=== PATIENT | female | born 1950 | race Caucasian/White ===

== ENCOUNTER 2017-07-24 19:46 | Emergency (ER) | payer MEDICARE, MEDICAID, SELFPAY ==
[2017-07-24 19:47] VITALS: BP 122/72; PULSE 63; RESP 15; TEMP 36.7; BMI 29.2
[2017-07-24] MEDS: predniSONE 20 MG Tablet 40 MG PO (20:25)
[2017-07-24] MEDS: Morphine 4 MG/ML Syringe IM (20:25)
[2017-07-24] MEDS: Acyclovir 800 MG Tablet PO (20:34)
[2017-07-24] MEDS: Ketoconazole Cream 1 APPLIC TOPICAL (20:35)
--- NOTE | 2017-07-24 20:43 | ED.DCSUM_ITS ---
- ER Visit Summary Date of Service: 07/24/17 Chief Complaint: Rash History of Present Illness: The patient is a 66 F the painful rash to the back of her right calf for the past 1 week. Patient states it feels like shingles that she has had previously, but someone told her today it may be ringworm. She does state that itches as well. She denies rash anywhere else. She has been putting psoriasis cream on it without improvement. Physical Examination: Vital signs are unremarkable. Patient is in no acute distress and nontoxic appearing. Heart is regular rate and rhythm. Lung sounds are clear. Abdomen is soft nontender. Right lower extremity examination was a 4 cm round area of erythema over the posterior right calf. There is no flaking in the area is minimally raised. There are no open vesicles at this time. There is no drainage. Test Results: [] Emergency Department Course and Treatment: I discussed with the patient that my concern is for shingles especially with the degree of pain she is having to the area. She states this does feel like her prior shingles, however it is odd that she has no other lesions along the nerve distribution. Patient will be treated with prednisone, acyclovir for shingles. She will also be given ketoconazole cream to place topically as she is concerned about ringworm. She is given a single dose of IM morphine here for pain control. She will continue Tylenol or ibuprofen at home for pain. Treatment Plan: [] Disposition: Discharge Impression: Rash right leg concerning for shingles This note was generated with [employer] dictation software. It may contain incorrect words, spelling, and punctuation that were not noted in review of the chart prior to signing ED Disposition - Plan for ED Patient: Disposition: Home or Assisted Living Chief Complaint: Rash Instructions: ED Shingles Prescriptions: Acyclovir 800 mg PO 5X/DAY #25 tablet Prednisone [Deltasone] 60 mg PO DAILY #15 tablet Ketoconazole [Nizoral Cream] 1 applic TOPICAL BID #1 tube Referrals: Luigi Parrish DO [Primary Care Provider] - 1-2 Weeks
[2017-07-24 20:51] VITALS: BP 132/78; PULSE 78; RESP 18; O2SAT 98
== END 2017-07-24 20:53 | disposition home or self-care (01) ==
PROVIDERS: Emergency Provider Emergency Medicine; Family Provider Student in an Organized Health Care Education/Training Program; PCP Student in an Organized Health Care Education/Training Program
DX: R21 Rash and other nonspecific skin eruption (principal); I11.0 Hypertensive heart disease with heart failure; I15.9 Secondary hypertension, unspecified; E11.9 Type 2 diabetes mellitus without complications; E03.9 Hypothyroidism, unspecified; F32.9 Major depressive disorder, single episode, unspecified; F41.9 Anxiety disorder, unspecified; M79.7 Fibromyalgia; Z79.899 Other long term (current) drug therapy; Z72.0 Tobacco use
CPT/HCPCS: 96372; 99284

== ENCOUNTER 2017-09-13 14:31 | Emergency (ER) | payer MEDICARE, MEDICAID, SELFPAY ==
[2017-09-13 14:32] VITALS: BP 128/65; PULSE 59; RESP 14; TEMP 36.7; O2SAT 89; BMI 29.9
[2017-09-13 15:31] LABS: Absolute Lymphocyte Count 1.65 X10^3/ul (0.83-4.51); Absolute Neutrophil Count 5.7 X10^3/uL (2.0-7.7); Basophil# 0.04 X10^3/uL; Basophil% 0.5 % (0-1); Eosinophil# 0.16 X10^3/uL; Hematocrit 40.9 % (37-47); Hemoglobin 13.2 g/dl (12.0-15.0); Lymphocyte # 1.65 X10^3/ul (4.0); Lymphocyte % 20.5 % (19-41); Mean Corp Hgb Conc 32.3 g/gl (32-36); Mean Corpuscular Hgb 30.5 pg (27.0-32.0); Mean Corpuscular Volume 94.5 fL (81-99); Mean Platelet Vol. 9.2 fl (6.2-12.0); Monocyte# 0.47 X10^3/uL; Monocyte% 5.8 % (0-10); Neutrophil # 5.67 X10^3/uL (2.7-7.7); Neutrophil % 70.6 % (47-70); Platelet Count 239 K/mm3 (150-450); RBC Distribution Width CV 13.9 % (11.6-14.6); Red Blood Count 4.33 M/mm3 (4.2-5.4)
[2017-09-13 15:36] LABS: Allen Test POS; Base Excess 3 mmol/L (-2 to +2); Bicarbonate 26.4 mmol/L (22-26); Blood Gas Specimen Type ART; O2 Delivery Device Room Air; PO2 52 mmHG (75-100); SITE R Radial; SO2 89 % (95-99); Time Given 1525; Total Carbon Dioxide 27 mmol/L; pCO2 35.4 mmHg (35-45); pH 7.48 (7.35-7.45)
[2017-09-13 15:41] LABS: Anion Gap 6 (5-15); BUN 11 mg/dL (7-18); Calcium,Total 9.5 mg/dL (8.5-10.1); Chloride 105 mmol/L (98-107); Creatinine, Serum 0.92 mg/dL (0.55-1.02); EST Glomerular Filtration Rate 65 mL/min (>60); Est Glom Filt Rate - Afr Amer 78 mL/min (>60); Estimated Creatinine Clearance 49.09 ml/min; Glucose 86 mg/dL (74-106); Potassium 3.6 mmol/L (3.5-5.1); Sodium Level 138 mmol/L (136-145)
[2017-09-13 15:42] LABS: POSITIVE COUNT NO; POSITIVE DIFFERENTIAL NO; POSITIVE MORPHOLOGY NO
[2017-09-13 16:12] LABS: Amphetamine Urine VISTA NEGATIVE (<1000 ng/mL); Barbiturate Urine VISTA NEGATIVE (< 200 ng/mL); Benzodiazepine Urine VISTA NEGATIVE (< 200 ng/mL); Cocaine Urine VISTA NEGATIVE (< 300 ng/mL); Ecstacy Urine VISTA NEGATIVE (< 500 ng/mL); Methadone Urine VISTA NEGATIVE (< 300 ng/mL); PCP Urine VISTA NEGATIVE (< 25 ng/mL); THC Urine VISTA NEGATIVE (< 50 ng/mL); Vista UDS pH Range 6
[2017-09-13] MEDS: HYDROmorphone 0.5 MG/0.5 ML SYRINGE IV (16:43)
--- NOTE | 2017-09-13 16:53 | ED.VISSUMM ---
- ER Visit Summary Date of Service: 09/13/17 Chief Complaint: Exacerbation of chronic back pain right greater than left History of Present Illness: The patient is a 66 F who is not a good informant. Her thought process is not linear/logical. He states she had a surgical procedure by Dr. Benson on Thursday. There is no scar. Asked if she received an epidural injection and she replied no I had a surgical procedure. She states he did not prescribe any pain medicine and she has not been on pain medicine for some time. She denies any bowel or bladder dysfunction. She denies saddle paresthesia anesthesia. She denies radicular pain. She denies weakness or thigh muscles going up and down steps. She denies foot drop. Denies symptoms of claudication. She denies any radicular pain. She denies dysuria, frequency, urgency or hematuria. Patient's only positive response and review of system questions was back pain. Patient informed me 1 hour after arrival that she is on oxygen at home. She informed me this when I told her that her blood gas was significantly abnormal. . Physical Examination: Vital signs are unremarkable. Patient's speech is slightly slurred. Concern she may have CO2 retention versus use of pain medicine. Head is atraumatic normocephalic. Pupils are equal round reactive. Extraocular muscles are intact. TMs are pearly white with landmarks noted. Nares patent with no drainage. Posterior pharynx without erythema or exudate. Uvula is midline. There is no dysphonia or dysphasia. Trachea is midline. There is no stridor with auscultation of the neck. Heart is regular without murmur, gallop or rub. S1 and S2 are normal. Lungs are clear to auscultation with good movement of air bilaterally. Abdomen is soft nontender no palpable semester down bruit. She has reproducible low back pain bilaterally. Movement causes her pain. Straight leg test and crossover tests are negative. Patella and ankle reflex are 1+ and symmetric. EHL is intact. DP and PT pulses are palpable. There is no clonus or Babinski sign noted. She has normal sensation in her lower extremities and gluteal area. Test Results: CBC unremarkable BMP normal blood gas reveals increased AA gradient with a person who has smoked since age of 12 and has smoked between 2-3 packs per day. Tox screen was negative Emergency Department Course and Treatment: Concern patient may be under the influence of illicit medication and reason for tox screen. Blood gas was obtained because of concern for CO2 retention. CBC to evaluate for evidence of infection electro panel to assess BUN creatinine and electrolytes. Patient informed me that she is seen by Dr. Benson for pain management. When asked specifically why she did not receive a prescription for pain medicine she had no response. Treatment Plan: Since tox screen is negative she was treated with 0.5 mg of Dilaudid. I was informed by her nurse Jocelyn that she is requesting STD analgesia until September 23. Patient was informed that she would not receive a prescription for any pain medicine because she is in pain management and that would violate her contract. Disposition: Discharged home with daughter Impression: Exacerbation of chronic low back pain without sciatica/radiculopathy Hypoxia secondary to chronic lung disease History of hypertension History hypothyroidism This note was generated with [employer] dictation software. It may contain incorrect words, spelling, and punctuation that were not noted in review of the chart prior to signing ED Disposition - Plan for ED Patient: Disposition: Home or Assisted Living Chief Complaint: Back Instructions: ED Neck Back Pain General Referrals: Luigi Parrish DO [Primary Care Provider] - Mele Jacome MD [STAFF PHYSICIAN] - 3-5 Days if not improving
[2017-09-13 17:13] VITALS: PULSE 66; RESP 18; O2SAT 89
== END 2017-09-13 17:14 | disposition home or self-care (01) ==
PROVIDERS: Emergency Provider Emergency Medicine; Family Provider Student in an Organized Health Care Education/Training Program; PCP Student in an Organized Health Care Education/Training Program
DX: M54.5 Low back pain (principal); G89.29 Other chronic pain; J44.9 Chronic obstructive pulmonary disease, unspecified; R09.02 Hypoxemia; I10 Essential (primary) hypertension; E03.9 Hypothyroidism, unspecified; E66.9 Obesity, unspecified; F17.200 Nicotine dependence, unspecified, uncomplicated; Z68.29 Body mass index [BMI] 29.0-29.9, adult; Z79.899 Other long term (current) drug therapy; Z99.81 Dependence on supplemental oxygen
CPT/HCPCS: 36600; 80048; 80307; 82803; 85025; 96374; 99284; A4216

== ENCOUNTER 2017-11-15 16:49 | Observation (INO) | payer MEDICARE, MEDICAID, SELFPAY ==
[2017-11-15 16:50] VITALS: BP 128/52; PULSE 67; RESP 18; TEMP 36.8; O2SAT 89; BMI 30.2
[2017-11-15] MEDS: HYDROcodone Bitartrate/Apap 5/325 Tablet PO (19:12)
[2017-11-15 19:18] LABS: Absolute Lymphocyte Count 2.96 X10^3/ul (0.83-4.51); Absolute Neutrophil Count 7.7 X10^3/uL (2.0-7.7); Basophil# 0.06 X10^3/uL; Basophil% 0.5 % (0-1); Eosinophil# 0.27 X10^3/uL; Eosinophils% 2.3 % (0-5); Hematocrit 37.5 % (37-47); Hemoglobin 12.4 g/dl (12.0-15.0); Lymphocyte # 2.96 X10^3/ul (4.0); Lymphocyte % 25.1 % (19-41); Mean Corp Hgb Conc 33.1 g/gl (32-36); Mean Corpuscular Hgb 30.7 pg (27.0-32.0); Mean Corpuscular Volume 92.8 fL (81-99); Mean Platelet Vol. 9.4 fl (6.2-12.0); Monocyte% 6.8 % (0-10); Neutrophil # 7.66 X10^3/uL (2.7-7.7); Platelet Count 214 K/mm3 (150-450); RBC Distribution Width CV 13.4 % (11.6-14.6); RBC Distribution Width SD 45.1 fl (35.1-43.9); Red Blood Count 4.04 M/mm3 (4.2-5.4); White Blood Count 11.8 K/mm3 (4.4-11.0)
[2017-11-15 19:28] LABS: POSITIVE COUNT NO; POSITIVE DIFFERENTIAL NO; POSITIVE MORPHOLOGY NO
[2017-11-15 19:41] LABS: Anion Gap 8 (5-15); BUN 25 mg/dL (7-18); BUN/Creat Ratio 15.1 RATIO (10-20); Calcium,Total 9.4 mg/dL (8.5-10.1); Chloride 99 mmol/L (98-107); Creatinine, Serum 1.66 mg/dL (0.55-1.02); EST Glomerular Filtration Rate 33 mL/min (>60); Est Glom Filt Rate - Afr Amer 40 mL/min (>60); Estimated Creatinine Clearance 26.01 ml/min; Glucose 103 mg/dL (74-106); Potassium 3.4 mmol/L (3.5-5.1); Sodium Level 137 mmol/L (136-145)
--- NOTE | 2017-11-15 20:51 | ED.VISSUMM ---
- ER Visit Summary Date of Service: 11/15/17 Chief Complaint: Right breast pain History of Present Illness: The patient is a 66 F who presents with right breast pain. It is been present for 2 days. She has noticed some irritation and pain of her nipple and red line streaking up her breast. She had nausea vomiting last week but this is since resolved. She has no other systemic symptoms. No fevers or chills. She is not diabetic. No history of prior similar symptoms. Physical Examination: Afebrile vitals are stable Moist mucous membranes Heart regular rate and rhythm Lymphangitic streaking of the right breast and some erythema of the nipple no discharge no mass no fluctuance Abdomen soft Test Results: Labs notable for white blood cell count 11.8 BUN 25 creatinine 1.66. Emergency Department Course and Treatment: Patient was treated with IV Unasyn and given [place] for pain. She was discussed with hospitalist will be admitted for further antibiotic therapy. Treatment Plan: [] Disposition: Admit Impression: Lymphangitis right breast This note was generated with [employer] dictation software. It may contain incorrect words, spelling, and punctuation that were not noted in review of the chart prior to signing ED Disposition - Plan for ED Patient: Chief Complaint: Other, Pain/Inj Referrals: Luigi Parrish DO [Primary Care Provider] -
[2017-11-15 21:32] VITALS: BP 130/70; PULSE 65; PULSE 80; RESP 14; O2SAT 98
[2017-11-15 21:46] VITALS: BMI 30.1
[2017-11-15 21:59] VITALS: BP 137/59; PULSE 58; RESP 18; TEMP 36.4; O2SAT 92
--- NOTE | 2017-11-15 22:38 | HP.PCM_ITS ---
Problem List (1) Edema Status: Chronic (2) Hypothyroid Status: Chronic (3) COPD (chronic obstructive pulmonary disease) Status: Chronic (4) HTN (hypertension) Status: Chronic (5) GERD (gastroesophageal reflux disease) Status: Chronic (6) Mastitis of right breast unrelated to of Status: Acute History of Present Illness Date of Admission: 11/15/17 Chief Complaint: Right breast pain The patient is a 66 year old F with a PMH as above, presents with a 2-3 day h/o right nipple pain and spreading redness. She denies any fevers, chills but has noticed that the redness and pain worsened today which is why she came to the hospital. She noticed the streaking on her breast this morning. She did not see her PCP. She denies any trauma to the breast and states that she has had a yearly mammogram, though she has not had one this year yet. She has a family h/ o breast cancer in her mother. She has not noticed any drainage coming from her nipple. In the ER she was given a dose of unasyn. Past Medical History Past Medical History (Chronic Problems): Chronic Problems Edema (Chronic) Hypothyroid (Chronic) COPD (chronic obstructive pulmonary disease) (Chronic) HTN (hypertension) (Chronic) GERD (gastroesophageal reflux disease) (Chronic) Allergies latex Allergy (Verified 11/15/17 16:51) Rash Sulfa (Sulfonamide Antibiotics) Allergy (Verified 11/15/17 16:51) Rash Phenothiazines Adverse Reaction (Verified 11/15/17 16:51) Other I LOST CONTROL OF MY MUSCLES AND NERVES procaine HCl [From Novocain] Adverse Reaction (Verified 11/15/17 16:51) Nausea/Vom/Diarrhea Home Medications: Ambulatory Orders Medication Instructions Recorded Fluoxetine HCl [Fluoxetine HCl] 40 mg PO DAILY 12/23/15 Furosemide [Furosemide] 40 mg PO DAILY 12/23/15 Gabapentin [Gabapentin] 900 mg PO TID 12/23/15 Ipratropium/Albuterol Sulfate 3 ml INHALATION Q6H.RT PRN 12/23/15 [Duoneb] Levothyroxine [Synthroid] 137 mcg PO DAILY 12/23/15 Omeprazole [Omeprazole] 20 mg PO DAILY 12/23/15 traZODone [Desyrel] 150 mg PO DAILY 12/23/15 Lisinopril [Lisinopril] 5 mg PO DAILY PRN 04/07/16 Hydroxychloroquine [Plaquenil] 200 mg PO DAILYCM 10/16/16 Ketoconazole [Nizoral Cream] 1 applic TOPICAL BID #1 tube 07/24/17 Surgical History: - - multiple cyst removal, back surgeries and a right shoulder surgery Smoking Status: Current every day smoker Alcohol: None Drugs: None - *Family History Maternal History Items: Cancer, Heart Disease Review of Systems Constitutional: Denies: Chills, Fever, Weight Change HEENT: Denies: Head Aches, Sinus Congestion, Sinus Drainage Cardiovascular: Denies: Chest Pain, Palpitations Respiratory: Denies: Cough, Shortness of breath at rest, Sputum production Gastrointestinal: Denies: Abdominal Pain, Nausea, Vomiting Genitourinary: Denies: Dysuria Gynecological: Reports: - - Right nipple pain, redness Musculoskeletal: Denies: Joint Pain, Joint Tenderness Skin: Reports: Rash. Denies: Wounds Neurological: Denies: Numbness, Tingling, Focal weakness Psychiatric: Denies: Anxiety, Depression Hematologic/ Lymphatic: Denies: Easy Bruising, Easy Bleeding VTE Information - Inpt Only VTE Present on Admission: No Patient Problems: Active and Suspected Problems Mastitis of right breast unrelated to of (Acute) - Physical Exam General: Alert, Oriented x3, Cooperative, No apparent distress HEENT: Atraumatic, PERRLA, EOMI, Normocephalic Oral: Moist Mucosa Neck: Supple, No JVD Lungs: Clear to auscultation, Normal air movement, No rhonchi, No wheeze, No rales Cardiovascular: Regular rate, Regular Rhythm, Normal S1, Normal S2, No murmurs Abdomen: Soft, Non Tender, Non-Distended, No Hepato-splenomegaly Extremities: No edema, Capillary Refill Less than 3 Seconds Skin: - - right nipple is red and swollen, there is an area of erythema immediatly around the nipple and there are three red streaks migrating away from her nipple Musculoskeletal: No Tenderness to Palpation of Joints or Extremities Neurological: Neuro grossly intact, Sensory exam intact to light touch and pain Psych/Mental Status: Normal Affect, Appropriate Vital Signs Temp Pulse Resp BP Pulse Ox 97.6 F L 58 L 18 137/59 H 92 11/15/17 21:59 11/15/17 21:59 11/15/17 21:59 11/15/17 21:59 11/15/17 21:59 Oxygen Delivery Method Room Air Weight: 167 lb 2.751 oz Body Mass Index (BMI) 30.0 Assessment/Plan All Active Problems Mastitis of right breast unrelated to of (Acute) 1. Right mastitis/LUCI/HTN - Likely infectious and will start with Unasyn - Her creatinine is elevated so will also give IVF and hold her lasix and lisinopril - Repeat BMP in am - Will try some oxycodone for her pain, if it doesnt help, can also try topical lidocaine to her nipple 2. Hypothyroidism - She has a f/u in - c/w synthroid 3. Chronic Back pain - She had her her nerves burned which she states has helped significantly with her back pain DVT: Heparin/SCD Diet: Regular Code Visit OBSV E&M: 14149 Initial observation care L3
[2017-11-15] MEDS: 0.9% Normal Saline 1,000 ML 100 ML IV (23:09)
[2017-11-15] MEDS: 0.9% NaCl Peripheral Flush Adult/Peds IV (23:09)
[2017-11-15] MEDS: Ipratropium/Albuterol Sulfate 3 ML AMPUL.NEB INHALATION (23:32)
[2017-11-15 23:33] VITALS: PULSE 69; RESP 18
[2017-11-15] MEDS: Gabapentin 300 MG Capsule 900 MG PO (23:49)
[2017-11-15] MEDS: traZODone 50 MG Tablet 150 MG PO (23:49)
[2017-11-16 04:00] VITALS: BP 106/48; PULSE 59; RESP 16; TEMP 36.5; O2SAT 92
[2017-11-16 05:46] LABS: Anion Gap 7 (5-15); BUN 20 mg/dL (7-18); BUN/Creat Ratio 16.9 RATIO (10-20); Calcium,Total 8.8 mg/dL (8.5-10.1); Chloride 108 mmol/L (98-107); Creatinine, Serum 1.18 mg/dL (0.55-1.02); EST Glomerular Filtration Rate 48 mL/min (>60); Est Glom Filt Rate - Afr Amer 59 mL/min (>60); Estimated Creatinine Clearance 36.59 ml/min; Glucose 102 mg/dL (74-106); Potassium 3.6 mmol/L (3.5-5.1); Sodium Level 143 mmol/L (136-145)
[2017-11-16] MEDS: Levothyroxine 137 MCG Tablet PO (06:13)
[2017-11-16 06:14] LABS: Absolute Lymphocyte Count 2.59 X10^3/ul (0.83-4.51); Absolute Neutrophil Count 4.1 X10^3/uL (2.0-7.7); Basophil# 0.06 X10^3/uL; Basophil% 0.8 % (0-1); Eosinophil# 0.22 X10^3/uL; Eosinophils% 2.8 % (0-5); Hemoglobin 12.3 g/dl (12.0-15.0); Lymphocyte # 2.59 X10^3/ul (4.0); Lymphocyte % 33.5 % (19-41); Mean Corp Hgb Conc 32.4 g/gl (32-36); Mean Corpuscular Hgb 30.9 pg (27.0-32.0); Mean Corpuscular Volume 95.5 fL (81-99); Mean Platelet Vol. 9.8 fl (6.2-12.0); Monocyte# 0.68 X10^3/uL; Monocyte% 8.8 % (0-10); Neutrophil # 4.12 X10^3/uL (2.7-7.7); Neutrophil % 53.2 % (47-70); Platelet Count 199 K/mm3 (150-450); RBC Distribution Width CV 13.4 % (11.6-14.6); RBC Distribution Width SD 44.8 fl (35.1-43.9); Red Blood Count 3.98 M/mm3 (4.2-5.4); White Blood Count 7.7 K/mm3 (4.4-11.0)
[2017-11-16 06:34] LABS: POSITIVE COUNT NO; POSITIVE DIFFERENTIAL NO; POSITIVE MORPHOLOGY NO
--- NOTE | 2017-11-16 08:43 | PCM.DC ---
- Discharge Diagnoses Current Active Problems: Current Active and Chronic Problems Edema (Chronic) Hypothyroid (Chronic) COPD (chronic obstructive pulmonary disease) (Chronic) HTN (hypertension) (Chronic) GERD (gastroesophageal reflux disease) (Chronic) Mastitis of right breast unrelated to of (Acute) Allergies/Adverse Reactions: Allergies latex Allergy (Verified 11/15/17 16:51) Rash Sulfa (Sulfonamide Antibiotics) Allergy (Verified 11/15/17 16:51) Rash Phenothiazines Adverse Reaction (Verified 11/15/17 16:51) Other I LOST CONTROL OF MY MUSCLES AND NERVES procaine HCl [From Novocain] Adverse Reaction (Verified 11/15/17 16:51) Nausea/Vom/Diarrhea Medications to take at Discharge Fluoxetine HCl 40 mg PO DAILY 12/23/15 Gabapentin 900 mg PO TID 12/23/15 Levothyroxine [Synthroid] 137 mcg PO DAILY 12/23/15 Omeprazole 20 mg PO DAILY 12/23/15 traZODone [Desyrel] 150 mg PO DAILY 12/23/15 Lisinopril 5 mg PO DAILY PRN 04/07/16 Hydroxychloroquine [Plaquenil] 200 mg PO DAILYCM 10/16/16 Ketoconazole [Nizoral Cream] 1 applic TOPICAL BID #1 tube 07/24/17 Albuterol IH (ProAir) [Proair Hfa] 2 puff INHALATION Q4H PRN PRN #1 inhaler 11/16/17 Budesonide/Formoterol Fumarate [Symbicort 160-4.5 Mcg Inhaler] 6 gm IH BID #1 hfa.aer.ad 11/16/17 Cephalexin [Keflex] 500 mg PO Q6 #28 cap 11/16/17 Guaifenesin [Mucinex] 1,200 mg PO BID #14 tab 11/16/17 Ipratropium/Albuterol Sulfate [Duoneb] 3 ml INHALATION Q6H.RT PRN #30 ampul.neb 11/16/17 Prednisone 20 mg PO BID #10 tab 11/16/17 The following prescriptions were given: Albuterol IH (ProAir) [Proair Hfa] 2 puff INHALATION Q4H PRN PRN #1 inhaler PRN Reason: Dyspnea/Wheezing/Sob Budesonide/Formoterol Fumarate [Symbicort 160-4.5 Mcg Inhaler] 6 gm IH BID #1 hfa.aer.ad Cephalexin [Keflex] 500 mg PO Q6 #28 cap Guaifenesin [Mucinex] 1,200 mg PO BID #14 tab Ipratropium/Albuterol Sulfate [Duoneb] 3 ml INHALATION Q6H.RT PRN #30 ampul.neb PRN Reason: Sob &/Or Wheezing Prednisone 20 mg PO BID #10 tab Primary Care Physician: Luigi Parrish DO [Primary Care Provider] - Test Results: Test results from this visit will be discussed in further detail at your follow-up appointment, if applicable. Proposed Discharge Date: 11/16/17
--- NOTE | 2017-11-16 08:46 | DCINST_ITS ---
- Discharge Diagnoses Current Active Problems: Current Active and Chronic Problems Edema (Chronic) Hypothyroid (Chronic) COPD (chronic obstructive pulmonary disease) (Chronic) HTN (hypertension) (Chronic) GERD (gastroesophageal reflux disease) (Chronic) Mastitis of right breast unrelated to of (Acute) Allergies/Adverse Reactions: Allergies latex Allergy (Verified 11/15/17 16:51) Rash Sulfa (Sulfonamide Antibiotics) Allergy (Verified 11/15/17 16:51) Rash Phenothiazines Adverse Reaction (Verified 11/15/17 16:51) Other I LOST CONTROL OF MY MUSCLES AND NERVES procaine HCl [From Novocain] Adverse Reaction (Verified 11/15/17 16:51) Nausea/Vom/Diarrhea Medications to take at Discharge Fluoxetine HCl 40 mg PO DAILY 12/23/15 Gabapentin 900 mg PO TID 12/23/15 Levothyroxine [Synthroid] 137 mcg PO DAILY 12/23/15 Omeprazole 20 mg PO DAILY 12/23/15 traZODone [Desyrel] 150 mg PO DAILY 12/23/15 Lisinopril 5 mg PO DAILY PRN 04/07/16 Hydroxychloroquine [Plaquenil] 200 mg PO DAILYCM 10/16/16 Ketoconazole [Nizoral Cream] 1 applic TOPICAL BID #1 tube 07/24/17 Albuterol IH (ProAir) [Proair Hfa] 2 puff INHALATION Q4H PRN PRN #1 inhaler Budesonide/Formoterol Fumarate [Symbicort 160-4.5 Mcg Inhaler] 6 gm IH BID #1 hfa.aer.ad 11/16/17 Cephalexin [Keflex] 500 mg PO Q6 #28 cap 11/16/17 Guaifenesin [Mucinex] 1,200 mg PO BID #14 tab 11/16/17 Ipratropium/Albuterol Sulfate [Duoneb] 3 ml INHALATION Q6H.RT PRN #30 ampul.neb 11/16/17 Prednisone 20 mg PO BID #10 tab 11/16/17 The following prescriptions were given: Albuterol IH (ProAir) [Proair Hfa] 2 puff INHALATION Q4H PRN PRN #1 inhaler PRN Reason: Dyspnea/Wheezing/Sob Budesonide/Formoterol Fumarate [Symbicort 160-4.5 Mcg Inhaler] 6 gm IH BID #1 hfa.aer.ad Cephalexin [Keflex] 500 mg PO Q6 #28 cap Guaifenesin [Mucinex] 1,200 mg PO BID #14 tab Ipratropium/Albuterol Sulfate [Duoneb] 3 ml INHALATION Q6H.RT PRN #30 ampul.neb PRN Reason: Sob &/Or Wheezing Prednisone 20 mg PO BID #10 tab Primary Care Physician: Luigi Parrish DO [Primary Care Provider] - Test Results: Test results from this visit will be discussed in further detail at your follow- up appointment, if applicable. Proposed Discharge Date: 11/16/17
[2017-11-16] MEDS: Ipratropium/Albuterol Sulfate 3 ML AMPUL.NEB INHALATION (08:49)
[2017-11-16 08:50] VITALS: PULSE 60; RESP 18
--- NOTE | 2017-11-16 08:55 | PCM.DC.SUM ---
Discharge Date and Diagnosis Date of Admission: 11/15/17 Date of Discharge: 11/16/17 - Primary Discharge Diagnosis Active and Suspected Problems Mastitis of right breast unrelated to of (Acute) - Secondary Discharge Diagnosis Chronic Problems Edema (Chronic) Hypothyroid (Chronic) COPD (chronic obstructive pulmonary disease) (Chronic) HTN (hypertension) (Chronic) GERD (gastroesophageal reflux disease) (Chronic) Hospital Course and Treatment Summary of Care Provided: The patient is a 66 year old F with past medical history significant for hypertension, hypothyroidism COPD who presented with right nipple erythema and swelling and assessment of cellulitis involving the right nipple/mastitis made admitted to regular nursing floor. Patient was managed with Unasyn with rapid improvement subsequently discharged home on Keflex and instructed to follow-up with PCP for subsequent care she has an appointment on 11/23/2017 2. COPD exacerbation patient was discharged on antibiotics, inhaled corticosteroid as well as Mucinex 3. Acute kidney injury patient was on Lasix discontinued managed with IV fluids resolved at the time of discharge 4. Hypertension-blood pressure controlled, home medications continued with dose adjustment as needed 5. Hypothyroidism-patient is on levothyroxine home dose continued 6. Chronic back pain Physical examination at the time of discharge: GENERAL: cooperative HEENT: Clear conjunctiva, NECK; supple, normal thyroid, . CHEST: Diminished to auscultation bilaterally, HEART: Regular S1 S2, no audible murmurs ABDOMEN: soft, non-tender, normoactive bowel sounds, RECTAL: deferred SKIN: No Rash 1 Discharge Diet: No Restrictions Home Medications: Medications to take at Discharge Fluoxetine HCl 40 mg PO DAILY 12/23/15 Gabapentin 900 mg PO TID 12/23/15 Levothyroxine [Synthroid] 137 mcg PO DAILY 12/23/15 Omeprazole 20 mg PO DAILY 12/23/15 traZODone [Desyrel] 150 mg PO DAILY 12/23/15 Lisinopril 5 mg PO DAILY PRN 04/07/16 Hydroxychloroquine [Plaquenil] 200 mg PO DAILYCM 10/16/16 Ketoconazole [Nizoral Cream] 1 applic TOPICAL BID #1 tube 07/24/17 Albuterol IH (ProAir) [Proair Hfa] 2 puff INHALATION Q4H PRN PRN #1 inhaler 11/16/17 Budesonide/Formoterol Fumarate [Symbicort 160-4.5 Mcg Inhaler] 6 gm IH BID #1 hfa.aer.ad 11/16/17 Cephalexin [Keflex] 500 mg PO Q6 #28 cap 11/16/17 Guaifenesin [Mucinex] 1,200 mg PO BID #14 tab 11/16/17 Ipratropium/Albuterol Sulfate [Duoneb] 3 ml INHALATION Q6H.RT PRN #30 ampul.neb 11/16/17 Prednisone 20 mg PO BID #10 tab 11/16/17 Following Prescrptions Were Given to Patient: Albuterol IH (ProAir) [Proair Hfa] 2 puff INHALATION Q4H PRN PRN #1 inhaler PRN Reason: Dyspnea/Wheezing/Sob Budesonide/Formoterol Fumarate [Symbicort 160-4.5 Mcg Inhaler] 6 gm IH BID #1 hfa.aer.ad Cephalexin [Keflex] 500 mg PO Q6 #28 cap Guaifenesin [Mucinex] 1,200 mg PO BID #14 tab Ipratropium/Albuterol Sulfate [Duoneb] 3 ml INHALATION Q6H.RT PRN #30 ampul.neb PRN Reason: Sob &/Or Wheezing Prednisone 20 mg PO BID #10 tab Primary Care Physician: Luigi Parrish DO [Primary Care Provider] - Please Follow Up With: Luigi Parrish DO When: week Disposition: Home Minutes spent on discharge:: 35 Patient Condition:: Stable Medical Necessity - Tobacco Use Smoking Status: Current every day smoker Meaningful Use Info Meaningful Use Diagnoses (Choose all that apply): None applicable Code Visit Inpatient E&M: 75921 Disch Hosp
[2017-11-16] MEDS: FLUoxetine 20 MG Capsule 40 MG PO (09:14)
[2017-11-16] MEDS: Gabapentin 300 MG Capsule 900 MG PO (09:14)
[2017-11-16] MEDS: Pantoprazole Sodium 20 MG Tablet PO (09:14)
[2017-11-16] MEDS: Hydroxychloroquine 200 MG Tablet PO (09:15)
[2017-11-16] MEDS: oxyCODONE 5 MG Tablet PO (09:24)
[2017-11-16 09:36] VITALS: BP 130/64; PULSE 58; RESP 18; TEMP 36.9; O2SAT 92
[2017-11-16 09:38] VITALS: RESP 18
[2017-11-16 10:40] VITALS: BP 105/52; PULSE 60; RESP 18; TEMP 37; O2SAT 95
== END 2017-11-16 10:50 | disposition home or self-care (01) ==
LOC: ED 19:35 → MS2 21:12
PROVIDERS: Admitting Provider Family Medicine; Emergency Provider Emergency Medicine; Family Provider Student in an Organized Health Care Education/Training Program; PCP Student in an Organized Health Care Education/Training Program; Visit Provider Internal Medicine
DX: N61.0 Mastitis without abscess (principal); K21.9 Gastro-esophageal reflux disease without esophagitis; E03.9 Hypothyroidism, unspecified; R60.0 Localized edema; I10 Essential (primary) hypertension; J44.1 Chronic obstructive pulmonary disease with (acute) exacerbation; N17.9 Acute kidney failure, unspecified; Z23 Encounter for immunization; Z79.899 Other long term (current) drug therapy; G89.29 Other chronic pain; M54.9 Dorsalgia, unspecified; Z80.3 Family history of malignant neoplasm of breast; F17.210 Nicotine dependence, cigarettes, uncomplicated
CPT/HCPCS: 36415; 80048; 85025; 94640; 96361; 96365; 96366; 99218; 99282; 99406; G0008; J7030; 90686; A4216; G0378; J0295

== ENCOUNTER 2018-02-25 17:48 | Emergency (ER) | payer MEDICARE, MEDICAID, SELFPAY ==
[2018-02-25 17:49] VITALS: BP 127/84; PULSE 80; RESP 20; TEMP 36.2; O2SAT 90; BMI 29.8
[2018-02-25 17:55] VITALS: BP 127/84; PULSE 80; RESP 20; TEMP 36.2; O2SAT 90
--- NOTE | 2018-02-25 18:18 | EKG12_ITS ---
Test Reason : Blood Pressure : / mmHG Vent. Rate : 074 BPM Atrial Rate : 074 BPM P-R Int : 140 ms QRS Dur : 132 ms QT Int : 462 ms P-R-T Axes : 024 008 093 degrees QTc Int : 512 ms Atrial-sensed ventricular-paced rhythm Biventricular pacemaker detected Abnormal ECG Confirmed by KELSEA BABCOCK, JEFFERY ([id number]), editor in chief DONNELL GOSS ([id number] on 03/02/2018 10:44:18 AM Referred By: AKI Confirmed By:JEFFERY ENAMORADO MD
[2018-02-25 18:25] LABS: Bacteria 0 SEEN /hpf (None Seen); Mucous, Urine 0 SEEN /hpf (<or=2+)
[2018-02-25 18:34] LABS: Color, Urine Yellow (Yellow); Glucose, Dipstick Normal (Normal); Ketone-Dipstick Negative (Negative); Leukocyte Esterase-Dipstick 500 /ul (Negative); Nitrite-Dipstick Negative (Negative); Occult Blood-Urine 25 /ul (Negative); Protein-Dipstick 15 mg/dl (Negative); Specific Gravity, Urine 1.015 (1.002-1.030); Urine Bilirubin Dipstick Negative (Negative); Urine Clarity Cloudy (Clear); Urine Urobilinogen Normal (Normal)
--- NOTE | 2018-02-25 18:40 | RAD_ITS ---
STUDY: X-RAY CHEST REASON FOR EXAM: Female, 67 years old. Short of breath TECHNIQUE: Frontal and lateral views of the chest. COMPARISON: 12/23/2015 FINDINGS: The lungs are clear and expanded. There is no demonstrated pleural abnormality. Normal size heart. Pacemaker is seen with leads terminating in the right atrium and right ventricle. Normal mediastinum and jimbo. Normal visualized pulmonary arteries. Normal visualized aortic arch and descending thoracic aorta. Normal visualized thoracic spine. Normal visualized ribs, clavicles, and shoulders. There has been lumbar spine fixation. There is no demonstrated abnormality of the visualized soft tissue structures of the upper abdomen. RAD/Chest PA and Lateral IMPRESSION: No acute chest disease. Electronically Signed: Octavio Conner MD at 19:47 EST , Service support ,
[2018-02-25 18:46] LABS: Absolute Lymphocyte Count 1.87 X10^3/ul (0.83-4.51); Absolute Neutrophil Count 6.5 X10^3/uL (2.0-7.7); Basophil# 0.06 X10^3/uL; Basophil% 0.6 % (0-1); Eosinophil# 0.34 X10^3/uL; Eosinophils% 3.7 % (0-5); Hematocrit 38.3 % (37-47); Hemoglobin 12.3 g/dl (12.0-15.0); Lymphocyte # 1.87 X10^3/ul (4.0); Lymphocyte % 20.2 % (19-41); Mean Corp Hgb Conc 32.1 g/gl (32-36); Mean Corpuscular Hgb 29.3 pg (27.0-32.0); Mean Corpuscular Volume 91.2 fL (81-99); Mean Platelet Vol. 8.6 fl (6.2-12.0); Monocyte# 0.43 X10^3/uL; Monocyte% 4.7 % (0-10); Neutrophil # 6.48 X10^3/uL (2.7-7.7); Neutrophil % 70.2 % (47-70); Platelet Count 246 K/mm3 (150-450); RBC Distribution Width CV 14.9 % (11.6-14.6); RBC Distribution Width SD 49.3 fl (35.1-43.9); White Blood Count 9.2 K/mm3 (4.4-11.0)
[2018-02-25 18:47] LABS: POSITIVE COUNT NO; POSITIVE DIFFERENTIAL NO; POSITIVE MORPHOLOGY NO
[2018-02-25 18:52] LABS: Squamous Epithelial Cells - UA 0-5 SEEN /hpf (5-10); White Blood Cells 50-100 SEEN /hpf (0-5)
[2018-02-25 18:54] LABS: Transitional Epithelial - Ur 0-5 SEEN /hpf (0-5)
[2018-02-25 18:55] LABS: Red Blood Cells-Urine 0-5 SEEN /hpf (0-5)
[2018-02-25 18:59] LABS: Anion Gap 10 (5-15); BUN 13 mg/dL (7-18); BUN/Creat Ratio 11.5 RATIO (10-20); Calcium,Total 9.2 mg/dL (8.5-10.1); Chloride 98 mmol/L (98-107); Creatinine, Serum 1.13 mg/dL (0.55-1.02); EST Glomerular Filtration Rate 51 mL/min (>60); Est Glom Filt Rate - Afr Amer 62 mL/min (>60); Estimated Creatinine Clearance 37.69 ml/min; Glucose 81 mg/dL (74-106); Potassium 3.4 mmol/L (3.5-5.1); Sodium Level 135 mmol/L (136-145)
[2018-02-25 19:19] VITALS: BP 140/69; PULSE 72; RESP 18; TEMP 37.6; O2SAT 93
[2018-02-25 20:17] VITALS: BP 128/64; PULSE 66; RESP 20; TEMP 37.5; O2SAT 92
--- NOTE | 2018-02-25 20:55 | ED.DCSUM_ITS ---
- ER Visit Summary Date of Service: 02/25/18 Chief Complaint: Cough, congestion, urinary tract infection History of Present Illness: The patient is a 67 F who presents with cough and congestion that is been getting worse over the past few days. Patient states she also has a urinary tract infection. Patient states she is coughing up some yellow sputum. Patient states she does get short of breath at times. Patient admits to some nasal congestion. Patient denies any nausea, vomiting, or diarrhea. Patient does admit to some low back pain. Patient denies any fevers or chills. Patient admits to some dysuria, hematuria, and frequency. Physical Examination: Vital signs are stable. Patient is afebrile. Patient is in no acute distress. Oral mucosa is pink and moist. Neck is supple. Trachea is midline. There is no JVD noted. Heart was regular rate and rhythm. Lungs showed diffuse rhonchi. There is good respiratory effort noted. Abdomen is soft. Bowel sounds are normal. There is some mild suprapubic tenderness. There is no rebound or guarding noted. Cranial nerves II through XII are intact. There are no focal motor or sensory deficits noted. The remaining physical exam is within normal limits. Test Results: EKG showed a paced rhythm with a rate of 74. There are no acute ST or T wave changes noted. There are no prior EKGs available for comparison. PA and lateral chest x-ray was obtained. There is no acute cardiopulmonary proc ess. CBC was normal. Basic metabolic profile showed a slightly elevated creatinine of 1.13 but this was stable compared to previous results. Sodium was slightly low at 135 and chloride was slightly low at 3.4. Urinalysis shows leukocyte esterase of 500 with 50-100 white blood cells. Emergency Department Course and Treatment: Patient was given a dose of Augmentin here. Patient was given a prescription for Augmentin. Patient was instructed to follow-up with her primary care physician in 5-7 days. Patient understood and was agreeable with the plan. All questions were answered. Disposition: Discharge home Impression: 1. Urinary tract infection 2. Upper respiratory infection This note was generated with [employer] software. It may contain incorrect words, spelling, and punctuation that were not noted in review of the chart prior to signing ED Disposition - Plan for ED Patient: Disposition: Home or Assisted Living Chief Complaint: General Illness Diagnosis: Urinary tract infection, Upper respiratory infection Instructions: ED URI Viral W Wheezing, ED UTI Cystitis Female Prescriptions: Amox/Clavulanate Tablet [Augmentin Tablet] 875 mg PO Q12H #20 tab Referrals: Luigi Parrish DO [Primary Care Provider] -
[2018-02-25] MEDS: Amox/Clavulanate 875 MG Tablet PO (21:04)
[2018-02-25 21:09] VITALS: BP 132/60; PULSE 70; RESP 20; O2SAT 92
== END 2018-02-25 21:11 | disposition home or self-care (01) ==
PROVIDERS: Emergency Provider Emergency Medicine; Family Provider Student in an Organized Health Care Education/Training Program; PCP Student in an Organized Health Care Education/Training Program
DX: J06.9 Acute upper respiratory infection, unspecified (principal); N39.0 Urinary tract infection, site not specified; J44.9 Chronic obstructive pulmonary disease, unspecified; M06.9 Rheumatoid arthritis, unspecified; M19.90 Unspecified osteoarthritis, unspecified site; Z79.899 Other long term (current) drug therapy; Z72.0 Tobacco use
CPT/HCPCS: 71046; 80048; 81001; 85025; 93005; 99285; A4216

== ENCOUNTER 2019-12-06 12:03 | Emergency (ER) | payer MEDICARE, MEDICAID, SELFPAY ==
[2019-12-06] VITALS (8 sets, daily range): BP systolic 123–150; BP diastolic 69–85; PULSE 60–64; RESP 16–24; TEMP 36.6; O2SAT 86–97; BMI 35.0
--- NOTE | 2019-12-06 12:29 | EKG12_ITS ---
Test Reason : SOB Blood Pressure : / mmHG Vent. Rate : 060 BPM Atrial Rate : 060 BPM P-R Int : 110 ms QRS Dur : 204 ms QT Int : 554 ms P-R-T Axes : 000 268 -76 degrees QTc Int : 554 ms AV dual-paced rhythm Abnormal ECG Confirmed by KAREN BABCOCK, CLAY ([id number]), dictionary editor DYAN KAUR ([id number]) on 12/12/2019 8:45:58 A M Referred By: GLORIA Confirmed By:DIMPLE JONES MD
--- NOTE | 2019-12-06 12:30 | ED.DCSUM_ITS ---
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 Negative for: Fever Chest Pain: None Narrative: 69-year-old female with COPD, she wears 2 L of oxygen at nighttime only, p resenting with 1 week of cough and increased wheezing. She has not been seen since the beginning of this illness, she presents during the national coronavirus emergency declaration/pandemic. She denies any known contact with anyone infected with COVID-19. She denies traveling out of the immediate area recently. She has chronic swelling in both of her legs, that is no different during this. She has been using an aerosol machine with albuterol at home as needed, and it is helping temporarily. She denies any fevers or chills, no headaches myalgias, no loss of taste or smell. - Past Medical History (1) COPD (chronic obstructive pulmonary disease) Status: Chronic (2) Edema Status: Chronic (3) GERD (gastroesophageal reflux disease) Status: Chronic (4) HTN (hypertension) Status: Chronic (5) Hypothyroid Status: Chronic Past Medical History - Allergies and Home Meds Allergies/Adverse Reactions: Allergies latex Allergy (Verified 12/06/19 12:06) Rash methotrexate Allergy (Verified 12/06/19 12:06) Other Sulfa (Sulfonamide Antibiotics) Allergy (Verified 12/06/19 12:06) Rash Phenothiazines Adverse Reaction (Verified 12/06/19 12:06) Other I LOST CONTROL OF MY MUSCLES AND NERVES procaine HCl [From Novocain] Adverse Reaction (Verified 12/06/19 12:06) Nausea/Vom/Diarrhea Primary Care Physician: Luigi Parrish DO [Primary Care Provider] - Surgical History: - - multiple cyst removal, back surgeries and a right shoulder surgery Lives: With Family Smoking Status: Current every day smoker - Family History Maternal Family History: Reports: Cancer, Heart Disease Review of Systems General: Denies: Chills, Fever, Sweats Eyes: Denies: Visual changes - bilaterally, Diplopia ENT: Denies: Bilateral ear pain, Rhinorrhea, Sore throat Cardiovascular: Denies: Chest pain, Palpitations Respiratory: Reports: Dyspnea, Cough, Dyspnea on exertion, Orthopnea. Denies: Sputum Gastrointestinal: Denies: Abdominal pain, Nausea, Vomiting, Diarrhea, Melena, Hematochezia Genitourinary: Denies: Dysuria, Hematuria, Frequency Musculoskeletal: Reports: Swelling. Denies: Myalgias, Neck pain, Back pain, Extremity Pain Skin: Denies: Rash, Wounds Neurological: Denies: Headache, Weakness, Numbness Physical Exam Vital Signs/Narrative: Vital Signs Temp Pulse Resp BP Pulse Ox 12/06/19 12:19 97.8 F 64 16 123/85 H 86 12/06/19 12:04 97.8 F 64 16 123/85 H 86 Inital Vital Signs reviewed: Yes General: Well nourished, Well developed, No Acute Distress Head: Normocephalic, Atraumatic Eyes: Perrl, EOMI ENT: Moist mucous membranes, No rhinorrhea Neck: Supple, Nontender, No lymphadenopathy, No JVD Cardiovascular: Regular rate, Regular rhythm, No murmurs Respiratory: No distress, Chest nontender, Wheezing. Negative for: Rales, Rhonchi Abdomen: Soft, Nontender, Nondistended, Normal bowel sounds Back: Nontender, Normal Inspection Extremities: Nontender, Edema. Negative for: Calf Tenderness Skin: Normal color, No rash, No Trauma Neurological: Alert, Oriented x3, Cranial nerves II-XII grossly intact, Normal Strength, Normal Sensation, Normal Gait Psychological: Normal affect, Normal Mood Diagnostic/Tx/Re-eval Impressions Chest X-Ray 12/06/19 12:42 IMPRESSION: Stable examination. No acute abnormality is seen. Electronically Signed: Fly Rosario, at 13:35 EDT , Service support , 12/06/19 12:42 Chest 1 View (Portable) [RAD] Stat Laboratory Results 12/06/19 12/06/19 12:50 12:50 WBC 9.8 RBC 3.85 L Hgb 12.3 Hct 39.0 MCV 101.3 H MCH 31.9 MCHC 31.5 L RDW Std Deviation 58.4 H RDW Coeff of Alberto 15.8 H Plt Count 208 MPV 9.0 Immature Gran % (Auto) 0.800 Neut % (Auto) 64.9 Lymph % (Auto) 25.0 Barren % (Auto) 5.5 Eos % (Auto) 2.9 Baso % (Auto) 0.9 Absolute Neuts (auto) 6.3 Absolute Lymphs (auto) 2.44 Nucleated RBC % 0 Sodium 139 Potassium 3.9 Chloride 108 H Carbon Dioxide 28.0 Anion Gap 3 L BUN 11 Creatinine 0.97 Estim Creat Clear Calc 42.68 Est GFR (MDRD) Af Amer 73 Est GFR (MDRD) Non-Af 60 BUN/Creatinine Ratio 11.3 Glucose 95 Calcium 8.8 Troponin I < 0.015 - Rhythm Strip Rhythm Strip: paced Rate: 60 Ectopy: None - EKG Initial EKG Interpretation: No Acute Injury Pattern, Paced Prior: Unchanged Treatment - Dyspnea: Oxygen, Albuterol, Atrovent, Steroid Repeat Evaluation: Improved - Medical Decision Making Patient feels much better after treatment. Her hypoxemia resolved. I think he can be treated as an outpatient for COPD flareup. I sent a COVID-19 swab, that will be run as an outpatient. She was advised to quarantine in the meantime and given instructions on how to look of the test results. Prescribed doxycycline and prednisone. She states she has rheumatoid arthritis and was having pain in her ankle, requesting pain medication, she states this is typical of her chronic rheumatoid arthritis that she takes Percocet for daily so she was given 1 of those prior to discharge home with a ride. ED Disposition - Plan for ED Patient: Disposition: Home or Assisted Living Diagnosis: COPD exacerbation Instructions: ED COPD Flare Prescriptions: Doxycycline Hyclate 1 cap PO DAILY #14 cap Transmission Status: Pending to [id number] Prednisone 10 mg PO UD #33 tab Transmission Status: Pending to [facility] Referrals: Luigi Parrish DO [Primary Care Provider] - 1 Week if not improving
--- NOTE | 2019-12-06 12:42 | RAD_ITS ---
STUDY: X-RAY CHEST REASON FOR EXAM: Female, 69 years old. DYSPNEA, COUGH FOR PAST WEEK. HX OF COPD. TECHNIQUE: Single AP portable view of the chest. COMPARISON: Comparison is made with prior examination dated 02/25/2018. FINDINGS: EKG electrodes are seen. The lungs are clear and expanded. There is no demonstrated pleural abnormality. Normal size heart. A left-sided dual-chamber pacemaker is seen. Normal mediastinum and jimbo. Normal visualized pulmonary arteries. There is atherosclerotic tortuosity of the aortic arch and descending thoracic aorta. There are degenerative changes of the visualized thoracic spine. Normal visualized ribs, clavicles, and shoulders. Evidence of prior surgery in the lumbar spine. There is no demonstrated abnormality of the visualized soft tissue structures of the upper abdomen. RAD/Chest 1 View (Portable) IMPRESSION: Stable examination. No acute abnormality is seen. Electronically Signed: Fly Rosario, at 13:35 EDT , Service support ,
[2019-12-06] MEDS: predniSONE 20 MG Tablet 40 MG PO (12:50)
[2019-12-06 13:01] LABS: Absolute Lymphocyte Count 2.44 X10^3/uL (0.83-4.51); Absolute Neutrophil Count 6.3 X10^3/uL (2.0-7.7); Basophil# 0.09 X10^3/uL; Basophil% 0.9 % (0-1); Eosinophil# 0.28 X10^3/uL; Eosinophils% 2.9 % (0-5); Hemoglobin 12.3 g/dL (12.0-15.0); Lymphocyte # 2.44 X10^3/ul (4.0); Mean Corp Hgb Conc 31.5 g/dL (32-36); Mean Corpuscular Hgb 31.9 pg (27.0-32.0); Mean Corpuscular Volume 101.3 fL (81-99); Monocyte# 0.54 X10^3/uL; Monocyte% 5.5 % (0-10); NRBC Flagged by Analyzer 0 % (0-5); Neutrophil # 6.32 X10^3/uL (2.7-7.7); Neutrophil % 64.9 % (47-70); Platelet Count 208 K/mm3 (150-450); RBC Distribution Width CV 15.8 % (11.6-14.6); RBC Distribution Width SD 58.4 fl (35.1-43.9); Red Blood Count 3.85 M/mm3 (4.2-5.4); White Blood Count 9.8 K/mm3 (4.4-11.0)
[2019-12-06] MEDS: Ipratropium/Albuterol Sulfate 3 ML AMPUL.NEB INHALATION (13:06)
[2019-12-06] MEDS: Albuterol 2.5 MG/3 ML VIAL.NEB. INHALATION (13:06)
[2019-12-06 13:19] LABS: Anion Gap 3 (5-15); BUN 11 mg/dL (7-18); BUN/Creat Ratio 11.3 RATIO (10-20); Calcium,Total 8.8 mg/dL (8.5-10.1); Chloride 108 mmol/L (98-107); Creatinine, Serum 0.97 mg/dL (0.55-1.02); EST Glomerular Filtration Rate 60 mL/min (>60); Est Glom Filt Rate - Afr Amer 73 mL/min (>60); Estimated Creatinine Clearance 42.68 ml/min; Glucose 95 mg/dL (74-106); Potassium 3.9 mmol/L (3.5-5.1); Sodium Level 139 mmol/L (136-145)
[2019-12-06] MEDS: oxyCODONE 5 MG Tablet PO (15:23)
== END 2019-12-06 15:30 | disposition home or self-care (01) ==
PROVIDERS: Emergency Provider Emergency Medicine; PCP Student in an Organized Health Care Education/Training Program
DX: J44.1 Chronic obstructive pulmonary disease with (acute) exacerbation (principal); F17.200 Nicotine dependence, unspecified, uncomplicated; E03.9 Hypothyroidism, unspecified; I10 Essential (primary) hypertension; K21.9 Gastro-esophageal reflux disease without esophagitis; Z79.899 Other long term (current) drug therapy
CPT/HCPCS: 71045; 80048; 84484; 85025; 87635; 93005; 94640; 99281; A4216; U0003

== ENCOUNTER 2020-05-01 12:18 | Outpatient (RCR) | payer MEDICARE, MEDICAID, SELFPAY ==
[2019-12-06 12:04] VITALS: BMI 35.0
[2020-05-01] MEDS: COVID-19 VACC, MRNA(PFIZER)/PF 30 MCG/0.3 ML SYRINGE IM (17:39)
[2020-05-22] MEDS: COVID-19 VACC, MRNA(PFIZER)/PF 30 MCG/0.3 ML SYRINGE IM (17:25)
== END 2020-07-31 23:59 ==
LOC: IMMUN 12:18
PROVIDERS: PCP Student in an Organized Health Care Education/Training Program; Visit Provider Family Medicine
DX: Z23 Encounter for immunization (principal)
CPT/HCPCS: 0001A; 0002A; 91300

== ENCOUNTER 2020-05-16 19:05 | Inpatient (IN) | payer MEDICARE, MEDICAID, SELFPAY ==
[2019-12-06 12:04] VITALS: BMI 35.0
[2020-05-16] VITALS (9 sets, daily range): BP systolic 105–116; BP diastolic 50–64; PULSE 60–64; RESP 12–25; TEMP 36.4; O2SAT 95–98; BMI 36.6; BMI 90.8
--- NOTE | 2020-05-16 18:59 | ECHOD_ITS ---
Reason For Study: DYSPNEA Procedure This was a 2D Doppler, Color Flow transthoracic echocardiogram. Exam performed portable in ICU/CCU. Left Ventricle Normal LV size. The estimated ejection fraction is 55 %. No evidence for diastolic dysfunction. No regional wall motion abnormalities noted. Right Ventricle Normal RV size. Normal systolic function. Atria Normal left atrium. Normal right atrium. No doppler evidence for ASD. Mitral Valve There is no mitral valve stenosis. No mitral valve insufficiency. Tricuspid Valve There is no tricuspid stenosis. Mild tricuspid valve insufficiency. Pulmonary artery systolic pressure is 50-55 mmHg. Aortic Valve Trisinus/trileaflet aortic valve. There is no aortic stenosis. No aortic valve insufficiency. Pulmonic Valve There is no pulmonic valvular stenosis. No pulmonic valve insufficiency. Great Vessels Normal aortic root. Pericardium/Pleural No pericardial effusion. MMode/2D Measurements & Calculations LVIDd: 4.6 cm IVSd: 0.86 cm Ao root diam: 3.2 cm LVIDs: 3.3 cm LVPWd: 0.88 cm RVDd: 3.3 cm FS: 28.5 % LAV(MOD-bp): 32.1 ml LA A4 area: 13.4 cm2 LA dimension(2D): 4.0 cm LAV(MOD-bp) Indexed: 16.8 ml/m2 LAV(MOD-sp2): 30.9 ml LAV(MOD-sp4): 33.3 ml RA A4 area: 12.8 cm2 Time Measurements MV dec time: 0.23 sec Doppler Measurements & Calculations MV E max eris: 59.0 cm/sec Lat Peak E' Eris: 6.5 cm/sec Med Peak E' Eris: 5.9 cm/sec MV A max eris: 109.9 cm/sec E/E' lat: 9.1 E/E' med: 9.9 MV E/A: 0.54 Ao V2 max: 150.8 cm/sec LV V1 max: 95.0 cm/sec PA V2 max: 123.0 cm/sec Ao max P.1 mmHg LV V1 max P.6 mmHg TR max eris: 336.2 cm/sec TR max P.2 mmHg Interpretation Summary The estimated ejection fraction is 55 %. No evidence for diastolic dysfunction. Pulmonary artery systolic pressure is 50-55 mmHg. Ordering Physician: Chelle Salazar Referring Physician: CAYLA HAMMOND Performed By: Teresa Pike RDCS, RVT
--- NOTE | 2020-05-16 21:57 | PCM.HP.STD ---
Problem List (1) Acute encephalopathy Status: Acute (2) Acute on chronic respiratory failure with hypoxia and hypercapnia Status: Acute (3) COPD with acute exacerbation Status: Acute (4) Chronic CHF Status: Suspected Qualifiers: Heart failure type: unspecified Qualified Code(s): I50.9 - Heart failure, unspecified (5) Hyperlipidemia Status: Chronic Qualifiers: Hyperlipidemia type: unspecified Qualified Code(s): E78.5 - Hyperlipidemia, unspecified (6) Anxiety and depression Status: Chronic (7) Tobacco use Status: Chronic (8) COPD (chronic obstructive pulmonary disease) Status: Chronic Qualifiers: COPD type: unspecified COPD Qualified Code(s): J44.9 - Chronic obstructive pulmonary disease, unspecified (9) GERD (gastroesophageal reflux disease) Status: Chronic Qualifiers: Esophagitis presence: esophagitis presence not specified Qualified Code(s): K21.9 - Gastro-esophageal reflux disease without esophagitis (10) HTN (hypertension) Status: Chronic Qualifiers: Hypertension type: essential hypertension Qualified Code(s): I10 - Essential (primary) hypertension (11) Hypothyroid Status: Chronic Qualifiers: Hypothyroidism type: unspecified Qualified Code(s): E03.9 - Hypothyroidism, unspecified (12) Pulmonary HTN Status: Chronic History of Present Illness Date of Admission: 05/16/20 Chief Complaint: Dyspnea The patient is a 69 y/o F w/ PMHx: Chronic back pain, Tobacco use, Chronic COPD with q HS Chronic Hypoxic Respiratory Failure (2L NC), Hypothyroidism, GERD, HTN, HLD, Rheumatoid arthritis who presents to the [facility] as direct admission from [place] ED with history of onset worsening cough, mildly productive with dyspnea, wheezing and fatigue with hypoxia as well as tachycardia and tachypnea over the last 3 days with onset of increased confusion on day of ED presentation prompting family to bring the patient to outside facility ED. Patient is supposed to be using supplemental oxygen nightly however daughter does note that she routinely falls asleep on the couch and it does not use her oxygen. Daughter denies any recent fever, chills. work-up in the [facility] ED included initial ABG with pH 7.41, PO2 43, PCO2 76, bicarb 26 on 2 L nasal cannula with noted 94% on the supplementation with placement on BiPAP and repeat ABG although unclear timeline with 93% oxygenation with pH 7.42, PO2 42, PCO2 73, bicarb 26, CT with no acute intracranial findings which was obtained secondary to confusion, lactic acid 1.1, CBC with WC 15.1 with previous WBC noted to be 18.1, hemoglobin 12.1, platelet 203 with unclear shift, CMP with sodium 136, potassium 4.5, chloride 99, bicarb 26, BUN/creatinine 27/1.04, glucose 98, unremarkable liver panel, troponin high-sensitivity initially 25 with repeat 22, EKG with paced rhythm, chest x-ray with no acute cardiopulmonary findings, noted to be afebrile with T 37.1, pulse of 69, respiratory rate 25, BP 111/60 with reported improvement of mental status while at their facility. Patient administered aerosols and steroid therapy per report. Prior to ED depart [address] [facility] patient urine drug screen reported with positive opiates therefore outside ED noted intention to trial Narcan prior to transition. Past Medical History Past Medical History (Chronic Problems): Chronic Problems Edema (Chronic) Hypothyroid (Chronic) COPD (chronic obstructive pulmonary disease) (Chronic) HTN (hypertension) (Chronic) GERD (gastroesophageal reflux disease) (Chronic) Hyperlipidemia (Chronic) Anxiety and depression (Chronic) Tobacco use (Chronic) Pulmonary HTN (Chronic) Allergies citalopram Allergy (Verified 05/16/20 21:44) Other latex Allergy (Verified 05/16/20 21:44) Rash methotrexate Allergy (Verified 05/16/20 21:44) Other Sulfa (Sulfonamide Antibiotics) Allergy (Verified 05/16/20 21:44) Rash bupropion Adverse Reaction (Verified 05/16/20 21:44) Hives Phenothiazines Adverse Reaction (Verified 05/16/20 21:44) Other I LOST CONTROL OF MY MUSCLES AND NERVES procaine HCl [From Novocain] Adverse Reaction (Verified 05/16/20 21:44) Nausea/Vom/Diarrhea Home Medications: Ambulatory Orders Medication Instructions Recorded Gabapentin 600 mg PO BID 12/23/15 Levothyroxine [Synthroid] 150 mcg PO DAILY 12/23/15 Omeprazole 20 mg PO DAILY 12/23/15 Hydroxychloroquine [Plaquenil] 200 mg PO BID 10/16/16 Ketoconazole [Nizoral Cream] 1 applic TOPICAL BID #1 tube 07/24/17 Albuterol IH (ProAir) [Proair Hfa] 2 puff INHALATION Q4H PRN PRN #1 11/16/17 inhaler Budesonide/Formoterol Fumarate 6 gm IH BID #1 hfa.aer.ad 11/16/17 [Symbicort 160-4.5 Mcg Inhaler] Ipratropium/Albuterol Sulfate 3 ml INHALATION Q6H.RT PRN #30 11/16/17 [Duoneb] ampul.neb Albuterol Sulfate [Ventolin Hfa] 2 puff INHALATION Q4H PRN PRN 02/25/18 Cilostazol 100 mg PO BID 02/25/18 Fexofenadine HCl [Nan Allergy] 180 mg PO DAILY 02/25/18 Furosemide 40 mg PO DAILY 02/25/18 Metoprolol(XL)Succ [Toprol Xl 100 mg PO DAILY 02/25/18 (Beta Luis)] Tiotropium Kamas [Spiriva 18 MCG] 1 puff INHALATION DAILY 02/25/18 Triamcinolone 0.025% Cream 1 applic TOPICAL BID 02/25/18 [Kenalog] Triamcinolone Acetonide [Nasacort 2 spray NASAL DAILY 02/25/18 Aq Nasal Tennyson] Acetaminophen 325 - 650 mg PO Q4H PRN PRN 12/06/19 Betamethasone Dipropionate 1 applicatio TP BID 12/06/19 Cetirizine HCl 10 mg PO DAILY 12/06/19 Escitalopram Oxalate 30 mg PO QHS 12/06/19 Etodolac 200 mg PO BID 12/06/19 Lorazepam [Ativan] 1 mg PO BID 12/06/19 Magnesium Oxide [Magnesium] 400 mg PO DAILY 12/06/19 Mirtazapine [Remeron] 15 mg PO QHS 12/06/19 Montelukast [Singulair] 10 mg PO DAILY 12/06/19 Prednisone 10 mg PO UD #33 tab 12/06/19 Surgical History: - - Multiple cyst removals, right shoulder surgery, lumbar back surgery with hardware, total abdominal hysterectomy, cholecystectomy, appendectomy lens implants, pacemaker placement, vocal cord polyp removal. 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 Smoking Status: Current every day smoker - Patient with ongoing cigarette tobacco usage currently slightly less than 1 pack/day since she was a teenager but had been up to 2 pack/day previously. Tobacco Use: Cigarettes Alcohol: None Drugs: None - *Family History Maternal History Items: Cancer, Diabetes, High Cholesterol, Heart Disease, Hypertension, Stroke Paternal History Items: Unknown - Patient is unaware of her paternal family history. Review of Systems Constitutional: Reports: Malaise, Weakness, Fatigue. Denies: Chills, Fever, Weight Change HEENT: Denies: Head Aches, Sinus Congestion, Sinus Drainage Cardiovascular: Denies: Chest Pain, Palpitations Respiratory: Reports: Cough, Shortness of Breath, Shortness of breath at rest, Shortness of breath upon exertion, Sputum production, Wheezing Gastrointestinal: Denies: Abdominal Pain, Nausea, Vomiting Genitourinary: Denies: Dysuria Musculoskeletal: Reports: Back Pain, Joint Pain. Denies: Joint Tenderness Skin: Denies: Rash, Wounds Neurological: Denies: Numbness, Tingling, Focal weakness Psychiatric: Reports: Anxiety, Depression. Denies: Homicidal Ideations, Suicidal Ideations Hematologic/ Lymphatic: Reports: Easy Bruising, Easy Bleeding VTE Information - Inpt Only VTE Present on Admission: No VTE Mechan Device Prophylaxis: SCD's VTE Pharm Prophylaxis ordered?: Yes Subjective: Patient seated upright in the ICU bed, BiPAP in place, does awaken to stimuli but very fatigued and lethargic, falling back asleep quickly. Objective: Physical Examination: General: Awakens to stimuli, intermittently alert but very lethargic and falls back asleep quickly, on the BiPAP, given BiPAP not easily answering any questions especially given sedation, following some commands, seated upright in the ICU bed, fatigued, no obvious respiratory distress on BiPAP currently. Skin: normal color, turgor, no icterus, cyanosis. HEENT: AT/NC, EOMI, PERRLA, dry MM, no carotid bruits or JVD noted; however, difficult examination given current BiPAP usage and thickened neck. Lungs: Diffusely diminished breath sounds, greater bases, occasional end expiratory wheeze, BiPAP currently in place, no obvious current distress, no obvious rales or rhonchi Heart: Regular rate and rhythm; no gallop, rub audible. Abdomen: soft, obese, NTTP, ND, distant normal BS, unable to discern HSM secondary to habitus. Extremities: no cyanosis, clubbing, or edema. Neurological: Awakens to stimuli, intermittently alert but very lethargic and falls back asleep quickly, on the BiPAP, given BiPAP not easily answering any questions especially given sedation, following some commands, seated upright in the ICU bed, fatigued, no obvious respiratory distress on BiPAP currently; cognitive function not baseline intact; pupils equally reactive to light and accomodation; cranial nerves grossly appear normal but difficult exam given sedation and BiPAP usage, being all extremities, strength severely global decrease secondary to acute presentation. Psychiatric: affect appears flat, lethargic, no acute evidence of depressive or anxiety feelings. - Physical Exam Vitals/I&O's: Vital Signs Pulse Resp Pulse Ox 62 25 H 95 05/16/20 21:34 05/16/20 21:34 05/16/20 21:34 Body Mass Index (BMI) 35.0 Laboratory Results 05/16/20 21:40: Magnesium Pending 05/16/20 21:40: Procalcitonin Pending 05/16/20 21:40: B-Natriuretic Peptide Pending Current Medications Acetaminophen (Acetaminophen 325 Mg Tablet) 650 mg PO Q6H PRN PRN PRN Reason: Pain Score 1-10/Temp > 100.7 F Al Hydroxide/Mg Hydroxide (Mag Hydrox/Al Hydrox/Simeth 30 Ml Udc) 30 ml PO Q6H PRN PRN PRN Reason: Gastric Burning Albuterol Sulfate (Albuterol 2.5 Mg/3 Ml Vial.Neb.) 2.5 mg INHALATION Q2H PRN PRN PRN Reason: Dyspnea, wheezing Albuterol/Ipratropium (Ipratropium/Albuterol Sulfate 3 Ml Ampul.Neb) 3 ml INHALATION Q4HWA.RT IVY Cilostazol (Cilostazol 50 Mg Tablet) 100 mg PO BID IVY Enoxaparin Sodium (Enoxaparin 40 Mg/0.4 Ml Syringe) 40 mg SC DAILY IVY Escitalopram Oxalate (Escitalopram Oxalate 20 Mg Tablet) 30 mg PO QHS IVY Etodolac (Etodolac 200 Mg Capsule) 200 mg PO BIDCM IVY Fluticasone Propionate (Fluticasone 0.05% 1 Tennyson Nasal.Sry) 2 spray NASAL DAILY IVY Furosemide (Furosemide 40 Mg Tablet) 40 mg PO DAILY IVY Gabapentin (Gabapentin 600 Mg Tablet) 600 mg PO BID IVY Guaifenesin (Guaifenesin 1,200 Mg Tablet) 1,200 mg PO BID [facility] Hydralazine HCl (Hydralazine 20 Mg/Ml Vial) 10 mg IV Q4H PRN PRN PRN Reason: SBP > 160 Hydroxychloroquine Sulfate (Hydroxychloroquine 200 Mg Tablet) 200 mg PO BID [facility] Levothyroxine Sodium (Levothyroxine 150 Mcg Tablet) 150 mcg PO DAILY@0600 [facility] Loratadine (Loratadine 10 Mg Tablet) 10 mg PO DAILY [facility] Lorazepam (Lorazepam 1 Mg Tablet) 1 mg PO BID [facility] Magnesium Hydroxide (Magnesium Hydroxide 30 Ml Udc) 30 ml PO DAILY PRN PRN PRN Reason: Constipation Methylprednisolone (Methylprednisolone 40 Mg/Ml Vial) 40 mg IV Q8 [facility] Metoprolol Succinate (Metoprolol(Xl)Succ 100 Mg Tablet) 100 mg PO DAILY [facility] Mirtazapine (Mirtazapine 15 Mg Tablet) 15 mg PO QHS [facility] Montelukast Sodium (Montelukast 10 Mg Tablet) 10 mg PO DAILY [facility] Morphine Sulfate (Morphine 2 Mg/Ml Syringe) 2 mg IV Q3H PRN PRN PRN Reason: Pain Score 6-10 Nitroglycerin (Nitroglycerin (Inpatient Use) 0.4 Mg Tab.Subl) 0.4 mg SL Q5M PRN PRN Reason: CARDIAC/CHEST PAIN Ondansetron HCl (Ondansetron 4 Mg/2 Ml Vial) 4 mg IV Q8H PRN PRN PRN Reason: NAUSEA/VOMITING Oxycodone HCl (Oxycodone 5 Mg Tablet) 5 mg PO Q4H PRN PRN PRN Reason: Pain Score 4-5 Pantoprazole Sodium (Pantoprazole Sodium 20 Mg Tablet) 20 mg PO DAILY [facility] Psyllium Hydrophilic Mucilloid (Psyllium 1 Packet) 1 packet PO DAILY PRN PRN PRN Reason: Constipation Senna/Docusate Sodium (Senna/Docusate Sodium 1 Tablet) 2 tablet PO BID PRN PRN Reason: Constipation Throat Lozenges (Benzocaine/Menthol 1 Lozenge) 1 lozenge MUCOUS MEM Q2H PRN PRN PRN Reason: SORE THROAT Assessment/Plan All Active Problems Mastitis of right breast unrelated to of (Acute) Acute encephalopathy (Acute) Acute on chronic respiratory failure with hypoxia and hypercapnia (Acute) COPD with acute exacerbation (Acute) The patient is a 69 y/o F w/ PMHx: Chronic back pain, Tobacco use, Chronic COPD with q HS Chronic Hypoxic Respiratory Failure (2L NC), Hypothyroidism, GERD, HTN, HLD, Rheumatoid arthritis who presents to the [facility] as direct admission from [place] ED with history of onset worsening cough, mildly productive with dyspnea, wheezing and fatigue with hypoxia as well as tachycardia and tachypnea over the last 3 days with onset of increased confusion on day of ED presentation prompting family to bring the patient to outside facility ED. 1. Acute Encephalopathy (Metabolic) secondary to Acute on Chronic Hypoxic and Hypercarbic Respiratory Failure secondary to Acute on COPD exacerbation with underlying severe pulmonary hypertension: OSH ED w/ CXR w/ chronic changes, CBC on admission w/ WBC elevation 15.1 but prior had been 18.1. Will admit to ICU, continue BIPAP usage with repeat ABG for changes as needed, obtain procalcitonin, sputum Cx and antigens, OSH per report with negative COVID testing, continue ATC duonebs, PRN albuterol, IV methylprednisolone, HOB, IS parameters, hold on abx therapy pending results as noted unless febrile then would initiate regimen immediately. 2. Chronic CHF, unclear type with suspected cardiomyopathy, unclear type complicated by severe Pulm HTN: Patient s/p AICD placement/paced per report. No prior echocardiogram noted, will continue patient aspirin, not on statin therapy, not on beta-luis therapy, lisinopril and Lasix as noted, echocardiogram requested, mag requested with supplementation as needed. 3. Rheumatoid arthritis complicated by Chronic Back Pain: We will continue patient home Plaquenil and gabapentin regimen; however, may hold regimen of sedate. 4. Hypothyroidism: Continue home synthroid regimen. 5. Hypertension: Continue home regimen including lisinopril, IV Lasix x1 upon presentation with resumption of oral regimen in a.m. with hold parameters as needed, PRN hydralazine. 6. Hyperlipidemia: Not on statin, defer to outpatient. 7. Anxiety and depression: We will continue patient home fluoxetine and trazodone regimen pending sedation evaluation. 8. GERD: We will continue patient on PPI. 9. Tobacco Abuse: Encouraged cessation, inpatient consultation per RT, NR if desired. 10. DVT prophylaxis: SCDs, lovenox. 11. CODE status: Patient FERMIN is her daughter. Living will is not in place but daughter notes she is interested in setting up therefore encouraged her to contact case management/social work in the morning for assistance. Discussed CODE status at length including difference between FULL code, DNR-CCA and DNR-CC status. Following discussions about the differences in these status, requested DNR-CCA, no intubation status but BIPAP amenable. Advanced Care Planning Face to Face Time: 16 minutes. Inpatient E&M: 83396 Init Hosp L3 Procedures: 53119 Advncd Care Plan 30 Min
[2020-05-16 22:18] LABS: Magnesium 2.3 mg/dL (1.6-2.6)
[2020-05-16 22:24] LABS: BNP,B-Type NATRIURETIC PEPTIDE 79.1 pg/mL (0-100)
[2020-05-16 22:32] LABS: Procalcitonin 0.32 ng/mL (0.00-0.09)
[2020-05-16] MEDS: Ipratropium/Albuterol Sulfate 3 ML AMPUL.NEB INHALATION (23:00)
[2020-05-16] MEDS: 0.9% Saline Lock 10 ML Syringe IV (23:18)
[2020-05-16] MEDS: Furosemide 40 MG/4 ML Vial IV (23:18)
[2020-05-17] VITALS (25 sets, daily range): BP systolic 105–145; BP diastolic 49–83; PULSE 62–98; RESP 2–34; TEMP 36.3–36.6; O2SAT 91–96
[2020-05-17] MEDS: 0.9% Saline Lock 10 ML Syringe IV ×3 (00:05→22:28)
[2020-05-17 04:29] LABS: Absolute Lymphocyte Count 0.79 X10^3/uL (0.83-4.51); Absolute Neutrophil Count 9.5 X10^3/uL (2.0-7.7); Basophil# 0.02 X10^3/uL; Basophil% 0.2 % (0-1); Hematocrit 39.1 % (37-47); Hemoglobin 12.6 g/dL (12.0-15.0); Lymphocyte # 0.79 X10^3/ul (4.0); Lymphocyte % 7.4 % (19-41); Mean Corp Hgb Conc 32.2 g/dL (32-36); Mean Corpuscular Hgb 29.9 pg (27.0-32.0); Mean Corpuscular Volume 92.7 fL (81-99); Mean Platelet Vol. 9.8 fl (6.2-12.0); Monocyte# 0.28 X10^3/uL; Monocyte% 2.6 % (0-10); NRBC Flagged by Analyzer 0 % (0-5); Neutrophil # 9.54 X10^3/uL (2.7-7.7); Neutrophil % 88.9 % (47-70); Platelet Count 201 K/mm3 (150-450); RBC Distribution Width CV 13.8 % (11.6-14.6); RBC Distribution Width SD 47.1 fl (35.1-43.9); Red Blood Count 4.22 M/mm3 (4.2-5.4); White Blood Count 10.7 K/mm3 (4.4-11.0)
[2020-05-17 04:43] LABS: ALB/GLOB Ratio 0.6 RATIO (0.9-2.4); AST(SGOT) 18 U/L (15-37); Alanine Aminotransfer ALT/SGPT 18 U/L (13-56); Albumin, Serum 2.6 g/dL (3.2-5.0); Alkaline Phosphatase 102 U/L (45-117); Anion Gap 8 (5-15); BUN 27 mg/dL (7-18); BUN/Creat Ratio 29.6 RATIO (10-20); Calcium,Total 8.7 mg/dL (8.5-10.1); Chloride 103 mmol/L (98-107); Creatinine, Serum 0.91 mg/dL (0.55-1.02); EST Glomerular Filtration Rate 65 mL/min (>60); Est Glom Filt Rate - Afr Amer 78 mL/min (>60); Globulin 4.4 g/dL (2.2-4.2); Glucose 128 mg/dL (74-106); Potassium 3.9 mmol/L (3.5-5.1); Sodium Level 141 mmol/L (136-145)
--- NOTE | 2020-05-17 05:33 | CON.PCM_ITS ---
Reason for Consult Date of Consultation: 05/17/20 Reason for Consultation: Respiratory failure History of Present Illness: The patient is a 69-year-old female, with a history as outlined below, who presented to the ICU as a transfer of care from an outside facility with cough and shortness of breath. The patient's cough has been largely nonproductive in nature. The patient does report a history of COPD of unknown severity and chronic tobacco dependency. She currently smokes 0.5 packs of cigarettes per day. She does report that she is followed by a subscription agent, but cannot recall their name. She does utilize inhalers at her baseline in her home environment. In addition, the patient reports a 2 L/min supplemental oxygen requirement. Per documentation from the outside hospital emergency department, the patient presented via EMS after her daughter found the patient with her oxygen off and the patient was noted to be lethargic. Coronavirus PCR was negative at the outside hospital. Lactate was normal at 1.1. BNP was elevated to 839. White count was elevated to 16,000. CTA head and neck was unremarkable. The patient did have a positive toxicology screen for opiates. She was also started on BiPAP and then transferred to [facility]. On arrival to the medical intensive care unit, the patient was maintaining appropriate oxygen saturations on BiPAP. She was afebrile and hemodynamically stable. Repeat lab work revealed a normal white blood cell count. Chemistry profile was unremarkable. Magnesium was within normal limits at 2.3. BNP was normal at 79. Procalcitonin was noted to be 0.32. The patient was started on aerosol treatments and IV steroids. Lasix was given x1 overnight. The patient was able to be weaned completely from BiPAP therapy and is currently maintaining appropriate oxygen saturations this morning on 2 L/min. Past Medical History Past Medical History (Chronic Problems): Chronic Problems (Last Updated 05/17/20 @ 15:35 by Nelli Beltran) Presence of cardiac pacemaker (Chronic) Hypothyroid (Chronic) COPD (chronic obstructive pulmonary disease) (Chronic) HTN (hypertension) (Chronic) GERD (gastroesophageal reflux disease) (Chronic) Hyperlipidemia (Chronic) Anxiety and depression (Chronic) Tobacco use (Chronic) Pulmonary HTN (Chronic) Medical History: Medical History (Last Updated 05/17/20 @ 15:35 by Nelli Beltran) Presence of cardiac pacemaker (Chronic) Z95.0 Hypothyroid (Chronic) E03.9 COPD (chronic obstructive pulmonary disease) (Chronic) J44.9 HTN (hypertension) (Chronic) I10 GERD (gastroesophageal reflux disease) (Chronic) K21.9 Acute encephalopathy (Acute) G93.40 Acute on chronic respiratory failure with hypoxia and hypercapnia (Acute) J96.21, J96.22 Mastitis of right breast unrelated to of N61.0 Edema R60.9 Allergies citalopram Allergy (Verified 05/16/20 21:44) Other latex Allergy (Verified 05/16/20 21:44) Rash methotrexate Allergy (Verified 05/16/20 21:44) Other Sulfa (Sulfonamide Antibiotics) Allergy (Verified 05/16/20 21:44) Rash bupropion Adverse Reaction (Verified 05/16/20 21:44) Hives Phenothiazines Adverse Reaction (Verified 05/16/20 21:44) Other I LOST CONTROL OF MY MUSCLES AND NERVES procaine HCl [From Novocain] Adverse Reaction (Verified 05/16/20 21:44) Nausea/Vom/Diarrhea Home Medications: Ambulatory Orders Medication Instructions Recorded Gabapentin 600 mg PO BID 12/23/15 Levothyroxine [Synthroid] 200 mcg PO DAILY 12/23/15 Omeprazole 20 mg PO DAILY 12/23/15 Hydroxychloroquine [Plaquenil] 200 mg PO BID 10/16/16 Ketoconazole [Nizoral Cream] 1 applic TOPICAL BID #1 tube 07/24/17 Albuterol IH (ProAir) [Proair Hfa] 2 puff INHALATION Q4H PRN PRN #1 11/16/17 inhaler Budesonide/Formoterol Fumarate 6 gm IH BID #1 hfa.aer.ad 11/16/17 [Symbicort 160-4.5 Mcg Inhaler] Ipratropium/Albuterol Sulfate 3 ml INHALATION Q6H.RT PRN #30 11/16/17 [Duoneb] ampul.neb Albuterol Sulfate [Ventolin Hfa] 2 puff INHALATION Q4H PRN PRN 02/25/18 Cilostazol 100 mg PO BID 02/25/18 Fexofenadine HCl [Ann Allergy] 180 mg PO DAILY 02/25/18 Furosemide 40 mg PO DAILY 02/25/18 Metoprolol(XL)Succ [Toprol Xl 100 mg PO DAILY 02/25/18 (Beta Luis)] Tiotropium [place] [Spiriva 18 MCG] 1 puff INHALATION DAILY 02/25/18 Triamcinolone 0.025% Cream 1 applic TOPICAL BID 02/25/18 [Kenalog] Triamcinolone Acetonide [Nasacort 2 spray NASAL DAILY 02/25/18 Aq Nasal [place]] Acetaminophen 325 - 650 mg PO Q4H PRN PRN 12/06/19 Betamethasone Dipropionate 1 applicatio TP BID 12/06/19 Cetirizine HCl 10 mg PO DAILY 12/06/19 Escitalopram Oxalate 20 mg PO QHS 12/06/19 Etodolac 200 mg PO BID 12/06/19 Lorazepam [Ativan] 1 mg PO BID 12/06/19 Magnesium Oxide [Magnesium] 400 mg PO DAILY 12/06/19 Mirtazapine [Remeron] 30 mg PO QHS 12/06/19 Montelukast [Singulair] 10 mg PO DAILY 12/06/19 Prednisone See Taper PO DAILY #30 tablet 05/18/20 Surgical History: - - Multiple cyst removals, right shoulder surgery, lumbar back surgery with hardware, total abdominal hysterectomy, cholecystectomy, appendectomy lens implants, pacemaker placement, vocal cord polyp removal. 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 Smoking Status: Current every day smoker - Patient with ongoing cigarette tobacco usage currently slightly less than 1 pack/day since she was a teenager but had been up to 2 pack/day previously. Tobacco Use: Cigarettes Alcohol: None Drugs: None - *Family History Maternal History Items: Cancer, Diabetes, High Cholesterol, Heart Disease, Hypertension, Stroke Paternal History Items: Unknown - Patient is unaware of her paternal family history. Review of Systems Constitutional: Denies: Chills, Fever Eyes: Denies: Blurred vision, Double vision HEENT: Denies: Head Aches, Sinus Congestion, Sinus Drainage Cardiovascular: Denies: Chest Pain, Palpitations Respiratory: Reports: Cough, Shortness of Breath. Denies: Sputum production Gastrointestinal: Denies: Abdominal Pain, Nausea, Vomiting Genitourinary: Denies: Dysuria Skin: Denies: Rash, Wounds Neurological: Denies: Numbness, Tingling, Focal weakness Psychiatric: Reports: Anxiety Hematologic/ Lymphatic: Denies: Easy Bruising, Easy Bleeding Patient Problems: Active and Suspected Problems (Last Updated 05/17/20 @ 15:35 by Nelli Beltran) Acute encephalopathy (Acute) Acute on chronic respiratory failure with hypoxia and hypercapnia (Acute) COPD with acute exacerbation (Acute) Chronic CHF (Suspected) Objective: The patient's most recent lab work, culture data and imaging studies have all been personally reviewed. Outside hospital coronavirus PCR was negative. Respiratory viral panel was negative. Strep and urine Legionella antigens were negative. - Physical Exam Vitals/I&O's: Vital Signs Temp Pulse Resp BP Pulse Ox 97.3 F L 62 22 H 127/71 H 94 05/17/20 04:00 05/17/20 05:00 05/17/20 05:00 05/17/20 05:00 05/17/20 02:20 Oxygen Flow Rate (L/min) 50 Oxygen Delivery Method Bi-pap Weight: 200 lb 2.876 oz Body Mass Index (BMI) 36.6 Intake and Output for Last 24 Hours 05/15/20 05/16/20 05/17/20 23:59 23:59 23:59 Intake Total 0 / 0 0 / 0 Output Total 75 / 75 Balance 0 / -75 -75 / -75 General: Alert, Cooperative, No apparent distress HEENT: Atraumatic, Normocephalic Oral: No Gingival or Mucosal Lesions/ Ulcerations Neck: Supple, No Nodes, Trachea Midline Lungs: No rhonchi, No wheeze, No rales, Diminished Cardiovascular: Regular rate, Regular Rhythm Abdomen: Bowel Sounds Present, Soft, Non Tender Extremities: No clubbing, No cyanosis, No edema Skin: No breakdown Musculoskeletal: No Muscle Wasting Lymphatic: No Cervical, Supraclavicular, or Inguinal Adenopathy Neurological: Cranial nerves II-XII grossly intact, Neuro grossly intact Psych/Mental Status: Flat Affect Labs (Last 48 Hours) 05/16/20 05/16/20 05/16/20 21:40 21:40 21:40 WBC RBC Hgb Hct MCV MCH MCHC RDW Std Deviation RDW Coeff of Alberto Plt Count MPV Immature Gran % (Auto) Neut % (Auto) Lymph % (Auto) [place] % (Auto) Eos % (Auto) Baso % (Auto) Absolute Neuts (auto) Absolute Lymphs (auto) Nucleated RBC % Sodium Potassium Chloride Carbon Dioxide Anion Gap BUN Creatinine Estim Creat Clear Calc Est GFR (MDRD) Af Amer Est GFR (MDRD) Non-Af BUN/Creatinine Ratio Glucose Calcium Magnesium 2.3 Total Bilirubin AST ALT Alkaline Phosphatase B-Natriuretic Peptide 79.1 Total Protein Albumin Globulin Albumin/Globulin Ratio Procalcitonin 0.32 H 05/17/20 05/17/20 04:00 04:00 WBC 10.7 RBC 4.22 Hgb 12.6 Hct 39.1 MCV 92.7 MCH 29.9 MCHC 32.2 RDW Std Deviation 47.1 H RDW Coeff of Alberto 13.8 Plt Count 201 MPV 9.8 Immature Gran % (Auto) 0.900 Neut % (Auto) 88.9 H Lymph % (Auto) 7.4 L [place] % (Auto) 2.6 Eos % (Auto) 0.0 Baso % (Auto) 0.2 Absolute Neuts (auto) 9.5 H Absolute Lymphs (auto) 0.79 L Nucleated RBC % 0 Sodium 141 Potassium 3.9 Chloride 103 Carbon Dioxide 30.0 Anion Gap 8 BUN 27 H Creatinine 0.91 Estim Creat Clear Calc 45.50 Est GFR (MDRD) Af Amer 78 Est GFR (MDRD) Non-Af 65 BUN/Creatinine Ratio 29.6 H Glucose 128 H Calcium 8.7 Magnesium Total Bilirubin 0.30 AST 18 ALT 18 Alkaline Phosphatase 102 B-Natriuretic Peptide Total Protein 7.0 Albumin 2.6 L Globulin 4.4 H Albumin/Globulin Ratio 0.6 L Procalcitonin Microbiology 05/16/20 21:50 Mucosa - Nasopharyngeal Respiratory Panel (PCR) - Final 05/17/20 00:00 Urine, Random Legionella Antigen - Final 05/17/20 00:00 Urine, Random Streptococcus pneumoniae Antigen (M - Final Current Medications Acetaminophen (Acetaminophen 325 Mg Tablet) 650 mg PO Q6H PRN PRN PRN Reason: Pain Score 1-10/Temp > 100.7 F Al Hydroxide/Mg Hydroxide (Mag Hydrox/Al Hydrox/Simeth 30 Ml Udc) 30 ml PO Q6H PRN PRN PRN Reason: Gastric Burning Albuterol Sulfate (Albuterol 2.5 Mg/3 Ml Vial.Neb.) 2.5 mg INHALATION Q2H PRN PRN PRN Reason: Dyspnea, wheezing Albuterol/Ipratropium (Ipratropium/Albuterol Sulfate 3 Ml Ampul.Neb) 3 ml INHALATION Q4HWA.RT [facility] Last Admin: 05/16/20 23:00 Dose: 3 ml Documented by: Cilostazol (Cilostazol 50 Mg Tablet) 100 mg PO BID [facility] Last Admin: 05/16/20 23:08 Dose: Not Given Documented by: Enoxaparin Sodium (Enoxaparin 40 Mg/0.4 Ml Syringe) 40 mg SC DAILY [facility] Escitalopram Oxalate (Escitalopram Oxalate 20 Mg Tablet) 30 mg PO QHS [facility] Last Admin: 05/16/20 23:07 Dose: Not Given Documented by: Etodolac ([facility] 200 Mg Capsule) [facility] Fluticasone Propionate (Fluticasone 0.05% 1 [place] Nasal.Sry) 2 spray NASAL DAILY [facility] Furosemide (Furosemide 40 Mg Tablet) 40 mg PO DAILY [facility] Gabapentin (Gabapentin 600 Mg Tablet) 600 mg PO BID [facility] Last Admin: 05/16/20 23:07 Dose: Not Given Documented by: Guaifenesin (Guaifenesin 1,200 Mg Tablet) 1,200 mg PO BID [facility] Last Admin: 05/16/20 23:07 Dose: Not Given Documented by: Hydralazine HCl (Hydralazine 20 Mg/Ml Vial) 10 mg IV Q4H PRN PRN PRN Reason: SBP > 160 Hydroxychloroquine Sulfate (Hydroxychloroquine 200 Mg Tablet) 200 mg PO BID [facility] Last Admin: 05/16/20 23:08 Dose: Not Given Documented by: Sodium Chloride () 250 mls @ 15 mls/hr IV .[id number] PRN PRN Reason: Saline Flush Sodium Chloride () 250 mls @ 15 mls/hr IV .[id number] PRN PRN Reason: Additional IVPB Infusion Levothyroxine Sodium (Levothyroxine 150 Mcg Tablet) 150 mcg PO DAILY@0600 [facility] Last Admin: 05/17/20 03:48 Dose: Not Given Documented by: Loratadine (Loratadine 10 Mg Tablet) 10 mg PO DAILY [facility] Lorazepam (Lorazepam 1 Mg Tablet) 1 mg PO BID [facility] Last Admin: 05/16/20 23:07 Dose: Not Given Documented by: Magnesium Hydroxide (Magnesium Hydroxide 30 Ml Udc) 30 ml PO DAILY PRN PRN PRN Reason: Constipation Methylprednisolone (Methylprednisolone 40 Mg/Ml Vial) 40 mg IV Q8 [facility] Last Admin: 05/17/20 00:06 Dose: 40 mg Documented by: Metoprolol Succinate (Metoprolol(Xl)Succ 100 Mg Tablet) 100 mg PO DAILY [facility] Mirtazapine (Mirtazapine 15 Mg Tablet) 15 mg PO QHS [facility] Last Admin: 05/16/20 23:08 Dose: Not Given Documented by: Montelukast Sodium (Montelukast 10 Mg Tablet) 10 mg PO DAILY [facility] Morphine Sulfate (Morphine 2 Mg/Ml Syringe) 2 mg IV Q3H PRN PRN PRN Reason: Pain Score 6-10 Nitroglycerin (Nitroglycerin (Inpatient Use) 0.4 Mg Tab.Subl) 0.4 mg SL Q5M PRN PRN Reason: CARDIAC/CHEST PAIN Ondansetron HCl (Ondansetron 4 Mg/2 Ml Vial) 4 mg IV Q8H PRN PRN PRN Reason: NAUSEA/VOMITING Oxycodone HCl (Oxycodone 5 Mg Tablet) 5 mg PO Q4H PRN PRN PRN Reason: Pain Score 4-5 Pantoprazole Sodium (Pantoprazole Sodium 20 Mg Tablet) 20 mg PO DAILY [facility] Psyllium Hydrophilic Mucilloid (Psyllium 1 Packet) 1 packet PO DAILY PRN PRN PRN Reason: Constipation Senna/Docusate Sodium (Senna/Docusate Sodium 1 Tablet) 2 tablet PO BID PRN PRN Reason: Constipation Sodium Chloride (0.9% Saline Lock 10 Ml Syringe) 10 - 40 ml IV UD PRN PRN Reason: SALINE FLUSH Last Admin: 05/17/20 00:05 Dose: 10 ml Documented by: Throat Lozenges (Benzocaine/Menthol 1 Lozenge) 1 lozenge MUCOUS MEM Q2H PRN PRN PRN Reason: SORE THROAT Assessment/Plan Active and Suspected Problems (Last Updated 05/17/20 @ 15:35 by Nelli Beltran) Acute encephalopathy (Acute) Acute on chronic respiratory failure with hypoxia and hypercapnia (Acute) COPD with acute exacerbation (Acute) Chronic CHF (Suspected) RECOMMENDATIONS: 1. Continue scheduled bronchodilators and steroids. 2. Wean supplemental oxygen to maintain saturations at or above 90%. 3. Echocardiogram is pending. 4. Continue Lasix per home regimen. 5. Encourage incentive spirometer use and mobilize patient as tolerated. 6. The patient is medically stable for transfer out of the intensive care unit. IMPRESSIONS: 1. Acute on chronic hypoxemic respiratory failure The patient has an apparent history of COPD of unknown severity and is followed by an outside subscription agent, the name of which the patient cannot recall. She does have a baseline supplemental oxygen requirement but is frequently noncompliant with its use. In addition, the patient does continue to smoke cigarettes daily. Given that the patient is afebrile without an elevated white blood cell count and has no evidence of a focal infiltrate on chest x-ray, I would hold off on antimicrobials. Agree with continuing scheduled bronchodilators and steroids for now. Continue to wean supplemental oxygen as tolerated. 2. History of rheumatoid arthritis/hypothyroidism/hypertension/hyperlipidemia/chronic tobacco dependency Complicates care, management, recovery and prognosis. I personally spent 4 minutes discussing the deleterious effects of continued tobacco use with the patient, including modalities which could be utilized to achieve a smoke-free lifestyle. Nicotine replacement therapy can be offered to the patient while admitted to the hospital. Continue home medications as well as indicated. This note was generated with [employer] dictation software. It may contain incorrect words, spelling, and punctuation that were not noted in checking the note before signing. Inpatient E&M: 74173 Init Hosp L3 - Behavior Interventions Behavior Intervention: 30988 Smoking Cessation 3-10 min
--- NOTE | 2020-05-17 05:55 | RAD_ITS ---
STUDY: X-RAY CHEST REASON FOR EXAM: Female, 69 years old. Dyspnea, cough TECHNIQUE: Single AP portable view of the chest. COMPARISON: Comparison is made with prior study dated 12/06/2019. FINDINGS: EKG electrodes are seen. Mild increased markings at the left lung base suggestive of either atelectasis and/or early infiltrate. There is no demonstrated pleural abnormality. Normal size heart. A left-sided dual-chamber pacemaker is seen. Normal mediastinum and jimbo. Normal visualized pulmonary arteries. There is atherosclerotic tortuosity of the aortic arch and descending thoracic aorta. Normal visualized thoracic spine. Normal visualized ribs, clavicles, and shoulders. There is no demonstrated abnormality of the visualized soft tissue structures of the upper abdomen. RAD/Chest 1 View (Portable) IMPRESSION: Minimal increased markings at the left lung base suggestive of either atelectasis and/or early infiltrate. Follow-up is recommended. Electronically Signed: Fly Rosario MD at 8:30 EDT , Service support ,
[2020-05-17] MEDS: Ipratropium/Albuterol Sulfate 3 ML AMPUL.NEB INHALATION ×5 (07:03→22:42)
[2020-05-17] MEDS: Etodolac 200 MG Capsule PO ×2 (10:18→15:37)
[2020-05-17] MEDS: Loratadine 10 MG Tablet PO (10:19)
[2020-05-17] MEDS: Fluticasone 0.05% 1 SPRAY NASAL.SRY 2 SPRAY NASAL (10:20)
[2020-05-17] MEDS: Furosemide 40 MG Tablet PO (10:20)
[2020-05-17] MEDS: Enoxaparin 40 MG/0.4 ML Syringe SC (10:20)
[2020-05-17] MEDS: Hydroxychloroquine 200 MG Tablet PO ×2 (10:21→22:24)
[2020-05-17] MEDS: Gabapentin 600 MG Tablet PO ×2 (10:21→22:24)
[2020-05-17] MEDS: Cilostazol 50 MG Tablet 100 MG PO ×2 (10:21→22:24)
[2020-05-17] MEDS: guaiFENesin 1,200 MG Tablet 1200 MG PO ×2 (10:21→22:25)
[2020-05-17] MEDS: Metoprolol(XL)Succ 100 MG Tablet PO (10:22)
[2020-05-17] MEDS: Pantoprazole Sodium 20 MG Tablet PO (10:22)
[2020-05-17] MEDS: Montelukast 10 MG Tablet PO (10:22)
--- NOTE | 2020-05-17 10:45 | CASEMGMT ---
Addendum entered by Georges Castro 05/17/20 13:29: Pt qualifies for a Palliative referral per the [facility] palliative screening tool at this time. Dr Delacruz aware but does not wish for referral to be placed at this time. Original Note: RN CM ASSISTANT PROFESSOR OF ARCHAEOLOGY CM to room to meet with patient for initial transition planning/care coordination assessment. RN JAZMIN introduced self and role at [facility]. Pt voices understanding and consents to assessment at this time. Pt resting in bed in no distress at this time. Pt is A/O at this time and answers all questions appropriately. Care providers, pharmacy, and demographics verified/updated at this time. PCP: Dr Parrish Specialists: Pt states she sees several specialists, but does not remember their names. She sees a paint crew supervisor @ [facility] and a banking paralegal in [place]. Preferred Pharmacy: [facility] Retail pharmacy Insurance: [employer] [facility] Prescription Benefit: Yes Living Will/HPOA: Pt has a POA, who is her daughter, Laurie Kelley. Pt states does not have a LW but is interested in talking with SW re:same. SW, Jo, made aware. LNOK: DaughterLaurie Living Arrangements: Lives in a trailer with 3 steps to enter with her daughter, Laurie. Pt states Laurie is home with her during the day, but is often not there during the night. Transportation: Laurie Nobles DME: States has the following DME: shower chair, rails/grab bars, cane, rollator, W[facility]. Pt thinks it is to be @ 2 L/M, but she is not sure. Call placed to Yessi @ [facility]. She confirmed that pt's current O2 orders are for 2 L/M @ [facility] only. Pt has only a concentrator. Pt states no need for further DME at this time. HHC/SNF: No history of SNF. States she just had HHC after a recent hospitalization @ [facility], but she does not remember the name of agency. Pt states is not interested in having HHC again at this time, as she does not feel she needed it then either. She also declines need for OP therapy. Pt made aware, if in the future, she is interested in HHC or OP therapy, to discuss this with PCP. She voices understanding. Pt wishes to return home and states has no concerns with going home at time of discharge. CM to follow for any increase in home oxygen needs and any further discharge planning/needs. Pt voices no further concerns/needs at this time. Advised pt to ask for CM if any further questions/concerns/needs arise. Voices understanding. PLAN: Home w/daughter. RN CM to follow for any increase in O2 needs @ discharge. Stephani MEHTAN RN CM
--- NOTE | 2020-05-17 12:55 | PN_ITS ---
Patient Problems: Active and Suspected Problems (Last Updated 05/16/20 @ 23:26 by Bess Dunham) Acute encephalopathy (Acute) Acute on chronic respiratory failure with hypoxia and hypercapnia (Acute) COPD with acute exacerbation (Acute) Chronic CHF (Suspected) Subjective: Patient seen and examined. She still feels short of breath and is wheezing. Review of systems otherwise negative. Vitals/I&O's: Vital Signs Temp Pulse Resp BP Pulse Ox 97.8 F 77 24 H 124/61 H 93 05/17/20 10:00 05/17/20 11:27 05/17/20 11:27 05/17/20 10:22 05/17/20 10:00 Oxygen Flow Rate (L/min) 2 Oxygen Delivery Method Nasal Cannula Weight: 198 lb 13.711 oz Body Mass Index (BMI) 36.6 Intake and Output for Last 24 Hours 05/15/20 05/16/20 05/17/20 23:59 23:59 23:59 Intake Total 0 / 0 0 / 0 Output Total 225 / 225 Balance 0 / -75 -225 / -225 General: Alert, Oriented x3, Cooperative, No apparent distress HEENT: Atraumatic, PERRLA, EOMI, Normocephalic Oral: Dry Mucosa Neck: Supple, No JVD, Negative Carotid Bruits Lungs: - - bilateral wheezing and crackles, on 2L of oxygen. Cardiovascular: Regular rate, Regular Rhythm, Normal S1, Normal S2, No murmurs Abdomen: Bowel Sounds Present, Soft, Non Tender, Non-Distended, No Hepato- splenomegaly Extremities: No clubbing, No cyanosis, No edema, Capillary Refill Less than 3 Seconds Skin: No rashes, No breakdown Musculoskeletal: No Tenderness to Palpation of Joints or Extremities Lymphatic: No Cervical, Supraclavicular, or Inguinal Adenopathy Neurological: Cranial nerves II-XII grossly intact, Neuro grossly intact, Motor Exam 5/5 strength throughout Psych/Mental Status: Normal Affect, Appropriate, Alert and oriented to time, place, person, mood and affect Microbiology Past 72 Hours 05/16/20 21:50 Mucosa - Nasopharyngeal Respiratory Panel (PCR) - Final 05/17/20 00:00 Urine, Random Legionella Antigen - Final 05/17/20 00:00 Urine, Random Streptococcus pneumoniae Antigen (M - Final Laboratory Results 05/16/20 21:40: Magnesium 2.3 05/16/20 21:40: Procalcitonin 0.32 H 05/16/20 21:40: B-Natriuretic Peptide 79.1 05/17/20 04:00: WBC 10.7, RBC 4.22, Hgb 12.6, Hct 39.1, MCV 92.7, MCH 29.9, MCHC 32.2, RDW Std Deviation 47.1 H, RDW Coeff of Alberto 13.8, Plt Count 201, MPV 9.8, Immature Gran % (Auto) 0.900, Neut % (Auto) 88.9 H, Lymph % (Auto) 7.4 L, [place] % (Auto) 2.6, Eos % (Auto) 0.0, Baso % (Auto) 0.2, Absolute Neuts (auto) 9.5 H, Absolute Lymphs (auto) 0.79 L, Nucleated RBC % 0 05/17/20 04:00: Sodium 141, Potassium 3.9, Chloride 103, Carbon Dioxide 30.0, Anion Gap 8, BUN 27 H, Creatinine 0.91, Estim Creat Clear Calc 45.50, Est GFR (MDRD) Af Amer 78, Est GFR (MDRD) Non-Af 65, BUN/Creatinine Ratio 29.6 H, Glucose 128 H, Calcium 8.7, Total Bilirubin 0.30, AST 18, ALT 18, Alkaline Phosphatase 102, Total Protein 7.0, Albumin 2.6 L, Globulin 4.4 H, Albumin/Globulin Ratio 0.6 L 05/17/20 12:20: Troponin I Pending Diagnostic Data Chest X-Ray 05/17/20 05:55 IMPRESSION: Minimal increased markings at the left lung base suggestive of either atelectasis and/or early infiltrate. Follow-up is recommended. Electronically Signed: Fly Rosario MD at 8:30 EDT , Service support , Current Medications Acetaminophen (Acetaminophen 325 Mg Tablet) 650 mg PO Q6H PRN PRN PRN Reason: Pain Score 1-10/Temp > 100.7 F Al Hydroxide/Mg Hydroxide (Mag Hydrox/Al Hydrox/Simeth 30 Ml Udc) 30 ml PO Q6H PRN PRN PRN Reason: Gastric Burning Albuterol Sulfate (Albuterol 2.5 Mg/3 Ml Vial.Neb.) 2.5 mg INHALATION Q2H PRN PRN PRN Reason: Dyspnea, wheezing Albuterol/Ipratropium (Ipratropium/Albuterol Sulfate 3 Ml Ampul.Neb) 3 ml INHALATION Q4HWA.RT [facility] Last Admin: 05/17/20 11:26 Dose: 3 ml Documented by: Cilostazol (Cilostazol 50 Mg Tablet) 100 mg PO BID [facility] Last Admin: 05/17/20 10:21 Dose: 100 mg Documented by: Enoxaparin Sodium (Enoxaparin 40 Mg/0.4 Ml Syringe) 40 mg SC DAILY [facility] Last Admin: 05/17/20 10:20 Dose: 40 mg Documented by: Escitalopram Oxalate (Escitalopram Oxalate 20 Mg Tablet) 30 mg PO QHS [facility] Last Admin: 05/16/20 23:07 Dose: Not Given Documented by: Etodolac (Etodolac 200 Mg Capsule) 200 mg PO BIDCM [facility] Last Admin: 05/17/20 10:18 Dose: 200 mg Documented by: Fluticasone Propionate (Fluticasone 0.05% 1 [place] Nasal.Sry) 2 spray NASAL DAILY [facility] Last Admin: 05/17/20 10:20 Dose: 2 spray Documented by: Furosemide (Furosemide 40 Mg Tablet) 40 mg PO DAILY [facility] Last Admin: 05/17/20 10:20 Dose: 40 mg Documented by: Gabapentin (Gabapentin 600 Mg Tablet) 600 mg PO BID [facility] Last Admin: 05/17/20 10:21 Dose: 600 mg Documented by: Guaifenesin (Guaifenesin 1,200 Mg Tablet) 1,200 mg PO BID [facility] Last Admin: 05/17/20 10:21 Dose: 1,200 mg Documented by: Hydralazine HCl (Hydralazine 20 Mg/Ml Vial) 10 mg IV Q4H PRN PRN PRN Reason: SBP > 160 Hydroxychloroquine Sulfate (Hydroxychloroquine 200 Mg Tablet) 200 mg PO BID [facility] Last Admin: 05/17/20 10:21 Dose: 200 mg Documented by: Sodium Chloride () 250 mls @ 15 mls/hr IV .[id number] PRN PRN Reason: Saline Flush Sodium Chloride () 250 mls @ 15 mls/hr IV .[id number] PRN PRN Reason: Additional IVPB Infusion Levothyroxine Sodium (Levothyroxine 150 Mcg Tablet) 150 mcg PO DAILY@0600 [facility] Last Admin: 05/17/20 03:48 Dose: Not Given Documented by: Loratadine (Loratadine 10 Mg Tablet) 10 mg PO DAILY [facility] Last Admin: 05/17/20 10:19 Dose: 10 mg Documented by: Lorazepam (Lorazepam 1 Mg Tablet) 1 mg PO BID [facility] Last Admin: 05/16/20 23:07 Dose: Not Given Documented by: Magnesium Hydroxide (Magnesium Hydroxide 30 Ml Udc) 30 ml PO DAILY PRN PRN PRN Reason: Constipation Methylprednisolone (Methylprednisolone 40 Mg/Ml Vial) 40 mg IV Q8 [facility] Last Admin: 05/17/20 06:43 Dose: 40 mg Documented by: Metoprolol Succinate (Metoprolol(Xl)Succ 100 Mg Tablet) 100 mg PO DAILY [facility] Last Admin: 05/17/20 10:22 Dose: 100 mg Documented by: Mirtazapine (Mirtazapine 15 Mg Tablet) 15 mg PO QHS [facility] Last Admin: 05/16/20 23:08 Dose: Not Given Documented by: Montelukast Sodium (Montelukast 10 Mg Tablet) 10 mg PO DAILY [facility] Last Admin: 05/17/20 10:22 Dose: 10 mg Documented by: Morphine Sulfate (Morphine 2 Mg/Ml Syringe) 2 mg IV Q3H PRN PRN PRN Reason: Pain Score 6-10 Nitroglycerin (Nitroglycerin (Inpatient Use) 0.4 Mg Tab.Subl) 0.4 mg SL Q5M PRN PRN Reason: CARDIAC/CHEST PAIN Ondansetron HCl (Ondansetron 4 Mg/2 Ml Vial) 4 mg IV Q8H PRN PRN PRN Reason: NAUSEA/VOMITING Oxycodone HCl (Oxycodone 5 Mg Tablet) 5 mg PO Q4H PRN PRN PRN Reason: Pain Score 4-5 Pantoprazole Sodium (Pantoprazole Sodium 20 Mg Tablet) 20 mg PO DAILY [facility] Last Admin: 05/17/20 10:22 Dose: 20 mg Documented by: Psyllium Hydrophilic Mucilloid (Psyllium 1 Packet) 1 packet PO DAILY PRN PRN PRN Reason: Constipation Senna/Docusate Sodium (Senna/Docusate Sodium 1 Tablet) 2 tablet PO BID PRN PRN Reason: Constipation Sodium Chloride (0.9% Saline Lock 10 Ml Syringe) 10 - 40 ml IV UD PRN PRN Reason: SALINE FLUSH Last Admin: 05/17/20 00:05 Dose: 10 ml Documented by: Throat Lozenges (Benzocaine/Menthol 1 Lozenge) 1 lozenge MUCOUS MEM Q2H PRN PRN PRN Reason: SORE THROAT STROKE Vital Signs/Narrative: Vital Signs Temp Pulse Resp BP BP Pulse Ox 05/17/20 11:27 77 24 H 05/17/20 10:22 79 124/61 H 05/17/20 10:00 97.8 F 75 17 145/83 H 93 05/17/20 09:00 69 22 H 129/55 H 96 Medical Necessity - Tobacco Use Smoking Status: Current every day smoker - Patient with ongoing cigarette tobacco usage currently slightly less than 1 pack/day since she was a teenager but had been up to 2 pack/day previously. Tobacco Use: Cigarettes Assessment/Plan All Active Problems (Last Updated 05/16/20 @ 23:26 by Bess Dunham) Acute encephalopathy (Acute) Acute on chronic respiratory failure with hypoxia and hypercapnia (Acute) COPD with acute exacerbation (Acute) #Acute metabolic encephalopathy due to acute COPD exacerbation * resolved * #Acute on chronic hypoxic and hypercapnic respiratory failure due to acute on chronic COPD exacerbation * titrate oxygen to maintain sats >90% * breathing treatments with bronchodilators * continue IV solumedrol * #Acute on chronic COPD exacerbation: as above #HFpEF with severe pulmonary hypertension * gas IUCD/pacer in place * no previous echo on file * on lasix and lisinopril * Rheumatoid arthritis: has chronic back pain also. On plaquenil and gabapentin. #Hypothyroidism: on synthroid #Hypertension: on lisinopril. IV hydralazine prn #hyperlipidemia: on statin #Anxiety and depression; on fluoxetine and trazodone #GERD: on PPI #DVT prophylaxis: lovenox Code status: full code Inpatient E&M: 89755 Subs Hosp L3
--- NOTE | 2020-05-17 16:33 | NURSING ---
Pt & daughter report that she cannot find her lower dentures. Daughter states that she had them in when she came to ER last night at [facility]. Daughter states she called [facility] ER and they stated they do not have them. This RN & Juana Moore RN, checked the patients belongings and her room twice. No lower dentures found. Sandy Moore RN checked bed linens and under mattress when she transferred the pt to the [facility]. Unable to locate. Daughter states she has contacted the transportation company that brought the pt from [facility] to [place] and they are looking for the lower dentures as well. Pt does have her upper dentures in her mouth currently.
[2020-05-17] MEDS: LORazepam 1 MG Tablet PO (22:25)
[2020-05-17] MEDS: Mirtazapine 15 MG Tablet PO (22:25)
[2020-05-17] MEDS: Escitalopram Oxalate 20 MG Tablet 30 MG PO (22:25)
[2020-05-17] MEDS: BENZOCAINE/MENTHOL 1 LOZENGE MUCOUS MEM (22:25)
[2020-05-18] VITALS (10 sets, daily range): BP systolic 126–141; BP diastolic 70–79; PULSE 74–92; RESP 12–20; TEMP 36.3–36.5; O2SAT 86–96
[2020-05-18] MEDS: Levothyroxine 150 MCG Tablet PO (05:11)
[2020-05-18] MEDS: 0.9% Saline Lock 10 ML Syringe IV (05:11)
[2020-05-18] MEDS: Ipratropium/Albuterol Sulfate 3 ML AMPUL.NEB INHALATION (06:50)
[2020-05-18] MEDS: Etodolac 200 MG Capsule PO (08:06)
[2020-05-18 08:32] LABS: Absolute Lymphocyte Count 0.83 X10^3/uL (0.83-4.51); Absolute Neutrophil Count 15.5 X10^3/uL (2.0-7.7); Basophil# 0.03 X10^3/uL; Basophil% 0.2 % (0-1); Hematocrit 36.4 % (37-47); Hemoglobin 11.9 g/dL (12.0-15.0); Lymphocyte # 0.83 X10^3/ul (4.0); Lymphocyte % 4.7 % (19-41); Mean Corp Hgb Conc 32.7 g/dL (32-36); Mean Corpuscular Hgb 30.1 pg (27.0-32.0); Mean Corpuscular Volume 91.9 fL (81-99); Mean Platelet Vol. 9.6 fl (6.2-12.0); Monocyte# 0.88 X10^3/uL; NRBC Flagged by Analyzer 0 % (0-5); Neutrophil # 15.46 X10^3/uL (2.7-7.7); Neutrophil % 88.3 % (47-70); Platelet Count 270 K/mm3 (150-450); RBC Distribution Width CV 13.6 % (11.6-14.6); RBC Distribution Width SD 45.8 fl (35.1-43.9); Red Blood Count 3.96 M/mm3 (4.2-5.4); White Blood Count 17.5 K/mm3 (4.4-11.0)
[2020-05-18 08:49] LABS: Anion Gap 9 (5-15); BUN 53 mg/dL (7-18); BUN/Creat Ratio 45.7 RATIO (10-20); Calcium,Total 9.1 mg/dL (8.5-10.1); Chloride 100 mmol/L (98-107); Creatinine, Serum 1.16 mg/dL (0.55-1.02); EST Glomerular Filtration Rate 49 mL/min (>60); Est Glom Filt Rate - Afr Amer 59 mL/min (>60); Estimated Creatinine Clearance 35.69 ml/min; Glucose 144 mg/dL (74-106); Potassium 3.5 mmol/L (3.5-5.1); Sodium Level 136 mmol/L (136-145)
--- NOTE | 2020-05-18 10:34 | CASEMGMT ---
KENNETH met with patient, introduced self and role at [facility]. SW asked her about Power of Furniture Duster and Living Will. She said she has a POA and is not interested in a living will. She then looked out her window and said, There is my daughter coming in right now. Kassie Sharif INSTRUCTIONAL SYSTEMS SPECIALIST JEANNA
--- NOTE | 2020-05-18 11:23 | CASEMGMT ---
Addendum entered by Geri Lawson 05/18/20 12:06: This RN CM to room and pt states she does not have a concentrator at home from [facility], states I sent it back. Pt states she has an Inogen portable concentrator that she bought herself. Pt states has been wearing the [employer]ogen(plugged in) at night for her 2L at bedtime. Pt states will need a concentrator for home and states does not need portability. Call back to Rosalinda at [facility] and updated at this time, voices understanding and states I will figure this out on our end. Pt states no need for HHC/OP therapy at this time. Pt voices no further questions/concerns/needs. Janelle FINK CM Original Note: Pt has home oxygen thru [facility] 2L at bedtime only per [employer] rep and states pt only has concentrator at home. Per Juliet FINK, pt does qualify for 2L w/ exertion at this time. New order faxed to [facility] and call to [facility] to notify of need for portability/tank for discharge. This RN CM is awaiting PT/OT to see pt for recommendations. CM to follow. Janelle FINK CM
--- NOTE | 2020-05-18 11:23 | CASEMGMT ---
Pt has home oxygen thru [facility] 2L at bedtime only per [facility] rep. Per Juliet FINK, pt does qualify for 2L w/ exertion at this time. New order faxed to [facility] and call to [facility] to notify of need for portability/tank for discharge. This RN CM is awaiting PT/OT to see pt for recommendations. CM to follow. SStaten DANAE CM
--- NOTE | 2020-05-18 11:36 | PCM.DC ---
- Discharge Diagnoses Current Active Problems: Current Active and Chronic Problems (Last Updated 05/17/20 @ 15:35 by Nelli Beltran) Hypothyroid (Chronic) COPD (chronic obstructive pulmonary disease) (Chronic) HTN (hypertension) (Chronic) GERD (gastroesophageal reflux disease) (Chronic) Acute encephalopathy (Acute) Acute on chronic respiratory failure with hypoxia and hypercapnia (Acute) COPD with acute exacerbation (Acute) Hyperlipidemia (Chronic) Anxiety and depression (Chronic) Tobacco use (Chronic) Pulmonary HTN (Chronic) You will use the following diet at home:: Cardiac Discharge Activity: Return to Normal Activity Call your doctor if you observe: Shortness of breath, Dizziness, Fainting spells, Chest pain Allergies/Adverse Reactions: Allergies citalopram Allergy (Verified 05/16/20 21:44) Other latex Allergy (Verified 05/16/20 21:44) Rash methotrexate Allergy (Verified 05/16/20 21:44) Other Sulfa (Sulfonamide Antibiotics) Allergy (Verified 05/16/20 21:44) Rash bupropion Adverse Reaction (Verified 05/16/20 21:44) Hives Phenothiazines Adverse Reaction (Verified 05/16/20 21:44) Other I LOST CONTROL OF MY MUSCLES AND NERVES procaine HCl [From Novocain] Adverse Reaction (Verified 05/16/20 21:44) Nausea/Vom/Diarrhea Medications to take at Discharge Gabapentin 600 mg PO BID 12/23/15 Levothyroxine [Synthroid] 200 mcg PO DAILY 12/23/15 Omeprazole 20 mg PO DAILY 12/23/15 Hydroxychloroquine [Plaquenil] 200 mg PO BID 10/16/16 Ketoconazole [Nizoral Cream] 1 applic TOPICAL BID #1 tube 07/24/17 Albuterol IH (ProAir) [Proair Hfa] 2 puff INHALATION Q4H PRN PRN #1 inhaler 11/16/17 Budesonide/Formoterol Fumarate [Symbicort 160-4.5 Mcg Inhaler] 6 gm IH BID #1 hfa.aer.ad 11/16/17 Ipratropium/Albuterol Sulfate [Duoneb] 3 ml INHALATION Q6H.RT PRN #30 ampul.neb 11/16/17 Albuterol Sulfate [Ventolin Hfa] 2 puff INHALATION Q4H PRN PRN 02/25/18 Cilostazol 100 mg PO BID 02/25/18 Fexofenadine HCl [Ann Allergy] 180 mg PO DAILY 02/25/18 Furosemide 40 mg PO DAILY 02/25/18 Metoprolol(XL)Succ [Toprol Xl (Beta Luis)] 100 mg PO DAILY 02/25/18 Tiotropium [place] [Spiriva 18 MCG] 1 puff INHALATION DAILY 02/25/18 Triamcinolone 0.025% Cream [Kenalog] 1 applic TOPICAL BID 02/25/18 Triamcinolone Acetonide [Nasacort Aq Nasal [place]] 2 spray NASAL DAILY 02/25/18 Acetaminophen 325 - 650 mg PO Q4H PRN PRN 12/06/19 Betamethasone Dipropionate 1 applicatio TP BID 12/06/19 Cetirizine HCl 10 mg PO DAILY 12/06/19 Escitalopram Oxalate 20 mg PO QHS 12/06/19 Etodolac 200 mg PO BID 12/06/19 Lorazepam [Ativan] 1 mg PO BID 12/06/19 Magnesium Oxide [Magnesium] 400 mg PO DAILY 12/06/19 Mirtazapine [Remeron] 30 mg PO QHS 12/06/19 Montelukast [Singulair] 10 mg PO DAILY 12/06/19 Prednisone See Taper PO DAILY #30 tablet 05/18/20 The following prescriptions were given: Prednisone See Taper PO DAILY #30 tablet Transmission Status: Pending to [id number] [facility] Primary Care Physician: Luigi Parrish DO [Primary Care Provider] - Please follow up with your Primary Care Physician in: 1 Week Test Results: Test results from this visit will be discussed in further detail at your follow-up appointment, if applicable. Please Follow Up With: Primary Casino Gaming Inspector When: 1 Week Proposed Discharge Date: 05/18/20
--- NOTE | 2020-05-18 11:38 | DS.PCM_ITS ---
<RamseyJuliet TAKER OUT - Last Filed: 05/18/20 11:46> Discharge Date and Diagnosis - Problem List Patient Problems: Active and Suspected Problems (Last Updated 05/17/20 @ 15:35 by Nelli Beltran) Acute encephalopathy (Acute) Acute on chronic respiratory failure with hypoxia and hypercapnia (Acute) COPD with acute exacerbation (Acute) Chronic CHF (Suspected) Date of Admission: 05/16/20 Date of Discharge: 05/18/20 - Primary Discharge Diagnosis Acute Problems: Active Problems (Last Updated 05/17/20 @ 15:35 by Nelli Beltran) 1. Acute on chronic hypoxic respiratory failure secondary to exacerbation of COPD 2. Metabolic encephalopathy, secondary to #1 3. Chronic heart failure with preserved ejection fraction, severe pulmonary hypertension 4. Rheumatoid arthritis 5. Hypertension 6. Hyperlipidemia 7. Anxiety/depression 8. Hypothyroidism 9. GERD 10. Tobacco dependence Suspected Problems: Suspected Problems (Last Updated 05/17/20 @ 15:35 by Nelli Beltran) Chronic CHF (Suspected) - Secondary Discharge Diagnosis Chronic Problems: Chronic Problems (Last Updated 05/17/20 @ 15:35 by Nelli Beltran) Presence of cardiac pacemaker (Chronic) Hypothyroid (Chronic) COPD (chronic obstructive pulmonary disease) (Chronic) HTN (hypertension) (Chronic) GERD (gastroesophageal reflux disease) (Chronic) Hyperlipidemia (Chronic) Anxiety and depression (Chronic) Tobacco use (Chronic) Pulmonary HTN (Chronic) Hospital Course and Treatment Imaging Results: Diagnostic Data Chest X-Ray 05/17/20 05:55 IMPRESSION: Minimal increased markings at the left lung base suggestive of either atelectasis and/or early infiltrate. Follow-up is recommended. Electronically Signed: Fly Rosario MD at 8:30 EDT , Service support , Operations: None Procedures: 2-D Echocardiogram Summary of Care Provided: The patient is a 69 year old F admitted 05/16/2020 due to dyspnea. 1. Acute on chronic hypoxic respiratory failure secondary to exacerbation of COPD-chest x-ray without acute process. Respiratory panel negative. Patient chronically wears 2 L nasal cannula at bedtime. She will need to wear 2 L with exertion at discharge as well. She is ambulatory in the home. Continue supplement oxygen to maintain O2 above 90%. Prednisone taper at discharge. Follow-up with PCP in 1 week. Follow-up with primary flanger in 1 week as well. 2. Metabolic encephalopathy, secondary to #1-resolved. 3. Chronic heart failure with preserved ejection fraction, severe pulmonary hypertension-echocardiogram demonstrates an EF of 55%, no evidence of diastolic dysfunction, pulmonary artery systolic pressure 50 to 55 mmHg. Continue home Lasix regimen. 4. Rheumatoid arthritis-on Plaquenil, gabapentin. 5. Hypertension-stable, continue lisinopril. 6. Hyperlipidemia-continue statin. 7. Anxiety/depression-on fluoxetine, trazodone. 8. Hypothyroidism-continue Synthroid regimen. 9. GERD-on PPI. 10. Tobacco dependence-encouraged cessation. Patient seen and examined prior to discharge. Physical assessment as noted below. Patient is stable for discharge with follow up recommendations as noted above. This patient was seen by ASHOK Calhoun under the supervision of Dr. Delacruz. Patient Problems: Active and Suspected Problems (Last Updated 05/17/20 @ 15:35 by Nelli Beltran) Acute encephalopathy (Acute) Acute on chronic respiratory failure with hypoxia and hypercapnia (Acute) COPD with acute exacerbation (Acute) Chronic CHF (Suspected) - Physical Exam Vitals/I&O's: Vital Signs Temp Pulse Resp BP Pulse Ox 97.7 F L 89 18 126/70 H 95 05/18/20 08:05 05/18/20 08:05 05/18/20 08:05 05/18/20 08:05 05/18/20 10:50 Oxygen Flow Rate (L/min) [ 2 AMBULATING with Oxygen #1] Oxygen Flow Rate (L/min) [At 2 REST with Oxygen] Oxygen Flow Rate (L/min) 2 Oxygen Delivery Method Nasal Cannula Weight: 188 lb 7.924 oz Body Mass Index (BMI) 36.6 Intake and Output for Last 24 Hours 05/16/20 05/17/20 05/18/20 23:59 23:59 23:59 Intake Total 0 / 0 1250 / 1490 360 / 360 Output Total 225 / 225 Balance 0 / -75 1025 / 1265 360 / 360 General: Alert, Oriented x3, Cooperative HEENT: Atraumatic, PERRLA, EOMI, Normocephalic Neck: Supple, No JVD, Negative Carotid Bruits Lungs: Diminished, Wheezes Cardiovascular: Regular rate, No murmurs Abdomen: Bowel Sounds Present, Soft, Non Tender, Non-Distended Extremities: No clubbing, No cyanosis, No edema, Capillary Refill Less than 3 Seconds Skin: No rashes, No breakdown Musculoskeletal: No Tenderness to Palpation of Joints or Extremities Neurological: Cranial nerves II-XII grossly intact, Neuro grossly intact Psych/Mental Status: Normal Affect, Appropriate Microbiology Past 72 Hours 05/16/20 21:50 Mucosa - Nasopharyngeal Respiratory Panel (PCR) - Final 05/17/20 00:00 Urine, Random Legionella Antigen - Final 05/17/20 00:00 Urine, Random Streptococcus pneumoniae Antigen (M - Final Laboratory Results 05/17/20 12:20: Troponin I < 0.015 05/17/20 15:48: Troponin I < 0.015 05/17/20 18:15: Troponin I < 0.015 05/18/20 08:14: WBC 17.5 H, RBC 3.96 L, Hgb 11.9 L, Hct 36.4 L, MCV 91.9, MCH 30.1, MCHC 32.7, RDW Std Deviation 45.8 H, RDW Coeff of Alberto 13.6, Plt Count 270, MPV 9.6, Immature Gran % (Auto) 1.800 H, Neut % (Auto) 88.3 H, Lymph % (Auto) 4.7 L, Cavalier % (Auto) 5.0, Eos % (Auto) 0.0, Baso % (Auto) 0.2, Absolute Neuts (auto) 15.5 H, Absolute Lymphs (auto) 0.83, Nucleated RBC % 0 05/18/20 08:14: Sodium 136, Potassium 3.5, Chloride 100, Carbon Dioxide 27.0, Anion Gap 9, BUN 53 H, Creatinine 1.16 H, Estim Creat Clear Calc 35.69, Est GFR (MDRD) Af Amer 59 L, Est GFR (MDRD) Non-Af 49 L, BUN/Creatinine Ratio 45.7 H, Glucose 144 H, Calcium 9.1 Current Medications Acetaminophen (Acetaminophen 325 Mg Tablet) 650 mg PO Q6H PRN PRN PRN Reason: Pain Score 1-10/Temp > 100.7 F Al Hydroxide/Mg Hydroxide (Mag Hydrox/Al Hydrox/Simeth 30 Ml Udc) 30 ml PO Q6H PRN PRN PRN Reason: Gastric Burning Albuterol Sulfate (Albuterol 2.5 Mg/3 Ml Vial.Neb.) 2.5 mg INHALATION Q2H PRN PRN PRN Reason: Dyspnea, wheezing Albuterol/Ipratropium (Ipratropium/Albuterol Sulfate 3 Ml Ampul.Neb) 3 ml INHALATION Q4HWA.RT [facility] Last Admin: 05/18/20 06:50 Dose: 3 ml Documented by: Cilostazol (Cilostazol 50 Mg Tablet) 100 mg PO BID [facility] Last Admin: 05/17/20 22:24 Dose: 100 mg Documented by: Enoxaparin Sodium (Enoxaparin 40 Mg/0.4 Ml Syringe) 40 mg SC DAILY [facility] Last Admin: 05/17/20 10:20 Dose: 40 mg Documented by: Escitalopram Oxalate (Escitalopram Oxalate 20 Mg Tablet) 30 mg PO QHS [facility] Last Admin: 05/17/20 22:25 Dose: 30 mg Documented by: Etodolac ([facility]odolac 200 Mg Capsule) [facility] Last Admin: 05/18/20 08:06 Dose: 200 mg Documented by: Fluticasone Propionate (Fluticasone 0.05% 1 Mellette Nasal.Sry) 2 spray NASAL DAILY [facility] Last Admin: 05/17/20 10:20 Dose: 2 spray Documented by: Furosemide (Furosemide 40 Mg Tablet) 40 mg PO DAILY [facility] Last Admin: 05/17/20 10:20 Dose: 40 mg Documented by: Gabapentin (Gabapentin 600 Mg Tablet) 600 mg PO BID [facility] Last Admin: 05/17/20 22:24 Dose: 600 mg Documented by: Guaifenesin (Guaifenesin 1,200 Mg Tablet) 1,200 mg PO BID [facility] Last Admin: 05/17/20 22:25 Dose: 1,200 mg Documented by: Hydralazine HCl (Hydralazine 20 Mg/Ml Vial) 10 mg IV Q4H PRN PRN PRN Reason: SBP > 160 Hydroxychloroquine Sulfate (Hydroxychloroquine 200 Mg Tablet) 200 mg PO BID [facility] Last Admin: 05/17/20 22:24 Dose: 200 mg Documented by: Sodium Chloride () 250 mls @ 15 mls/hr IV .[id number] PRN PRN Reason: Saline Flush Sodium Chloride () 250 mls @ 15 mls/hr IV .[id number] PRN PRN Reason: Additional IVPB Infusion Levothyroxine Sodium (Levothyroxine 150 Mcg Tablet) 150 mcg PO DAILY@0600 [facility] Last Admin: 05/18/20 05:11 Dose: 150 mcg Documented by: Loratadine (Loratadine 10 Mg Tablet) 10 mg PO DAILY [facility] Last Admin: 05/17/20 10:19 Dose: 10 mg Documented by: Lorazepam (Lorazepam 1 Mg Tablet) 1 mg PO BID [facility] Last Admin: 05/17/20 22:25 Dose: 1 mg Documented by: Magnesium Hydroxide (Magnesium Hydroxide 30 Ml Udc) 30 ml PO DAILY PRN PRN PRN Reason: Constipation Methylprednisolone (Methylprednisolone 40 Mg/Ml Vial) 40 mg IV Q8 [facility] Last Admin: 05/18/20 05:11 Dose: 40 mg Documented by: Metoprolol Succinate (Metoprolol(Xl)Succ 100 Mg Tablet) 100 mg PO DAILY [facility] Last Admin: 05/17/20 10:22 Dose: 100 mg Documented by: Mirtazapine (Mirtazapine 15 Mg Tablet) 15 mg PO QHS [facility] Last Admin: 05/17/20 22:25 Dose: 15 mg Documented by: Montelukast Sodium (Montelukast 10 Mg Tablet) 10 mg PO DAILY [facility] Last Admin: 05/17/20 10:22 Dose: 10 mg Documented by: Morphine Sulfate (Morphine 2 Mg/Ml Syringe) 2 mg IV Q3H PRN PRN PRN Reason: Pain Score 6-10 Nitroglycerin (Nitroglycerin (Inpatient Use) 0.4 Mg Tab.Subl) 0.4 mg SL Q5M PRN PRN Reason: CARDIAC/CHEST PAIN Ondansetron HCl (Ondansetron 4 Mg/2 Ml Vial) 4 mg IV Q8H PRN PRN PRN Reason: NAUSEA/VOMITING Oxycodone HCl (Oxycodone 5 Mg Tablet) 5 mg PO Q4H PRN PRN PRN Reason: Pain Score 4-5 Pantoprazole Sodium (Pantoprazole Sodium 20 Mg Tablet) 20 mg PO DAILY [facility] Last Admin: 05/17/20 10:22 Dose: 20 mg Documented by: Psyllium Hydrophilic Mucilloid (Psyllium 1 Packet) 1 packet PO DAILY PRN PRN PRN Reason: Constipation Senna/Docusate Sodium (Senna/Docusate Sodium 1 Tablet) 2 tablet PO BID PRN PRN Reason: Constipation Sodium Chloride (0.9% Saline Lock 10 Ml Syringe) 10 - 40 ml IV UD PRN PRN Reason: SALINE FLUSH Last Admin: 05/18/20 05:11 Dose: 10 ml Documented by: Throat Lozenges (Benzocaine/Menthol 1 Lozenge) 1 lozenge MUCOUS MEM Q2H PRN PRN PRN Reason: SORE THROAT Last Admin: 05/17/20 22:25 Dose: 1 lozenge Documented by: Discharge Diet: Low fat/ Low Cholesterol Discharge Activity: Return to Normal Activity Call your doctor if you observe: Shortness of breath, Dizziness, Fainting spells, Chest pain Home Medications: Medications to take at Discharge Gabapentin 600 mg PO BID 12/23/15 Levothyroxine [Synthroid] 200 mcg PO DAILY 12/23/15 Omeprazole 20 mg PO DAILY 12/23/15 Hydroxychloroquine [Plaquenil] 200 mg PO BID 10/16/16 Ketoconazole [Nizoral Cream] 1 applic TOPICAL BID #1 tube 07/24/17 Albuterol IH (ProAir) [Proair Hfa] 2 puff INHALATION Q4H PRN PRN #1 inhaler 11/16/17 Budesonide/Formoterol Fumarate [Symbicort 160-4.5 Mcg Inhaler] 6 gm IH BID #1 hfa.aer.ad 11/16/17 Ipratropium/Albuterol Sulfate [Duoneb] 3 ml INHALATION Q6H.RT PRN #30 ampul.neb 11/16/17 Albuterol Sulfate [Ventolin Hfa] 2 puff INHALATION Q4H PRN PRN 02/25/18 Cilostazol 100 mg PO BID 02/25/18 Fexofenadine HCl [Ann Allergy] 180 mg PO DAILY 02/25/18 Furosemide 40 mg PO DAILY 02/25/18 Metoprolol(XL)Succ [Toprol Xl (Beta Luis)] 100 mg PO DAILY 02/25/18 Tiotropium [place]wood [Spiriva 18 MCG] 1 puff INHALATION DAILY 02/25/18 Triamcinolone 0.025% Cream [Kenalog] 1 applic TOPICAL BID 02/25/18 Triamcinolone Acetonide [Nasacort Aq Nasal Mellette] 2 spray NASAL DAILY 02/25/18 Acetaminophen 325 - 650 mg PO Q4H PRN PRN 12/06/19 Betamethasone Dipropionate 1 applicatio TP BID 12/06/19 Cetirizine HCl 10 mg PO DAILY 12/06/19 Escitalopram Oxalate 20 mg PO QHS 12/06/19 Etodolac 200 mg PO BID 12/06/19 Lorazepam [Ativan] 1 mg PO BID 12/06/19 Magnesium Oxide [Magnesium] 400 mg PO DAILY 12/06/19 Mirtazapine [Remeron] 30 mg PO QHS 12/06/19 Montelukast [Singulair] 10 mg PO DAILY 12/06/19 Prednisone See Taper PO DAILY #30 tablet 05/18/20 Following Prescriptions Were Given to Patient: Prednisone See Taper PO DAILY #30 tablet Transmission [facility]: [facility] Primary Care Physician: Luigi Parrish DO [Primary Care Provider] - Please follow up with your Primary Care Physician in: 1 Week Please Follow Up With: Primary Gifted Teacher When: 1 Week Disposition: Home Minutes spent on discharge:: 35 Patient Condition:: Stable Medical Necessity - Tobacco Use Smoking Status: Current every day smoker Tobacco Use: Cigarettes Meaningful Use Info Meaningful Use Diagnoses (Choose all that apply): None applicable <Klarissa Delacruz - Last Filed: 05/18/20 14:48> Discharge Date and Diagnosis - Primary Discharge Diagnosis Acute Problems: Active Problems (Last Updated 05/17/20 @ 15:35 by Nelli Beltran) Acute encephalopathy (Acute) Acute on chronic respiratory failure with hypoxia and hypercapnia (Acute) COPD with acute exacerbation (Acute) Suspected Problems: Suspected Problems (Last Updated 05/17/20 @ 15:35 by Nelli Beltran) Chronic CHF (Suspected) - Secondary Discharge Diagnosis Chronic Problems: Chronic Problems (Last Updated 05/17/20 @ 15:35 by Nelli Beltran) Presence of cardiac pacemaker (Chronic) Hypothyroid (Chronic) COPD (chronic obstructive pulmonary disease) (Chronic) HTN (hypertension) (Chronic) GERD (gastroesophageal reflux disease) (Chronic) Hyperlipidemia (Chronic) Anxiety and depression (Chronic) Tobacco use (Chronic) Pulmonary HTN (Chronic) Hospital Course and Treatment Summary of Care Provided: Patient seen by Juliet PULIDO under my supervision The patient is a 69 year old F with a past medical history as outlined was admitted transferred from an outside facility on 05/17/2020 with a complaint of cough and shortness of breath. Cough was largely nonproductive. She also had wheezing. Patient had a history of COPD and chronic nicotine dependence and was still smoking about half a pack of cigarettes daily. She had been seen a pulm onologist whose name she cannot remember. She says use inhalers at home. She had been noted to be very lethargic at home by her daughter and had her oxygen off so she was brought in to the outside hospital and subsequently transferred to [facility]. Covid test done was negative and lactic acid was normal. BNP was elevated to a 59. WBC was also elevated at 16,000. CTA of the head and neck were unremarkable. Urine tox was positive for opiates. She was started on BiPAP and transferred to the [facility] ICU. BNP on repeat here was 79. She was started on IV Solu-Medrol and breathing treatments. Shee had a one-time dose of Lasix. She was weaned off of BiPAP and put on 2 L of oxygen which was her baseline at home. She was managed for acute on chronic hypoxic respiratory failure likely acute COPD exacerbation and acute metabolic encephalopathy likely due to opiate use. 2D echo done showed EF of 55% with no evidence of diastolic dysfunction and severe pulmonary hypertension with pulmonary artery systolic pressure of 50 to 55 mmHg. Patient was continued on her home Lasix. She remained stable and was discharged home on 05/18/2020. She was discharged with a prednisone taper and is follow-up with her primary care doctor and pulmonology in 1 week. Patient seen and examined prior to discharge. She felt much better and had no complaints. Review of systems otherwise negative. Labs and vitals reviewed. Home medication reviewed and reconciled. O/E: Vital Signs Temp Pulse Resp BP Pulse Ox 97.7 F L 92 18 141/72 H 95 05/18/20 08:05 05/18/20 11:46 05/18/20 08:05 05/18/20 11:46 05/18/20 11:33 General: Alert, Oriented x3, Cooperative, No apparent distress HEENT: Atraumatic, PERRLA, EOMI, Normocephalic Oral: Dry Mucosa Neck: Supple, No JVD, Negative Carotid Bruits Lungs: - - wheezing has resolved, on 2L of oxygen. Cardiovascular: Regular rate, Regular Rhythm, Normal S1, Normal S2, No murmurs Abdomen: Bowel Sounds Present, Soft, Non Tender, Non-Distended, No Hepato- splenomegaly Extremities: No clubbing, No cyanosis, No edema, Capillary Refill Less than 3 Seconds Skin: No rashes, No breakdown Musculoskeletal: No Tenderness to Palpation of Joints or Extremities Lymphatic: No Cervical, Supraclavicular, or Inguinal Adenopathy Neurological: Cranial nerves II-XII grossly intact, Neuro grossly intact, Motor Exam 5/5 strength throughout Psych/Mental Status: Normal Affect, Appropriate, Alert and oriented to time, place, person, mood and affect Plan is for discharge home today as above. Rest as per Juliet Mustafa NP-C's notes which I have reviewed and endorsed. - Physical Exam Vitals/I&O's: Vital Signs Temp Pulse Resp BP Pulse Ox 97.7 F L 92 18 141/72 H 95 05/18/20 08:05 05/18/20 11:46 05/18/20 08:05 05/18/20 11:46 05/18/20 11:33 Oxygen Flow Rate (L/min) [ 2 AMBULATING with Oxygen #1] Oxygen Flow Rate (L/min) [At 2 REST with Oxygen] Oxygen Flow Rate (L/min) 2 Oxygen Delivery Method Nasal Cannula Weight: 188 lb 7.924 oz Body Mass Index (BMI) 36.6 Intake and Output for Last 24 Hours 05/16/20 05/17/20 05/18/20 23:59 23:59 23:59 Intake Total 0 / 0 1250 / 1490 720 / 720 Output Total 225 / 225 Balance 0 / -75 1025 / 1265 720 / 720 Microbiology Past 72 Hours 05/16/20 21:50 Mucosa - Nasopharyngeal Respiratory Panel (PCR) - Final 05/17/20 00:00 Urine, Random Legionella Antigen - Final 05/17/20 00:00 Urine, Random Streptococcus pneumoniae Antigen (M - Final Laboratory Results 05/17/20 15:48: Troponin I < 0.015 05/17/20 18:15: Troponin I < 0.015 05/18/20 08:14: WBC 17.5 H, RBC 3.96 L, Hgb 11.9 L, Hct 36.4 L, MCV 91.9, MCH 30.1, MCHC 32.7, RDW Std Deviation 45.8 H, RDW Coeff of Alberto 13.6, Plt Count 270, MPV 9.6, Immature Gran % (Auto) 1.800 H, Neut % (Auto) 88.3 H, Lymph % (Auto) 4.7 L, Cavalier % (Auto) 5.0, Eos % (Auto) 0.0, Baso % (Auto) 0.2, Absolute Neuts (auto) 15.5 H, Absolute Lymphs (auto) 0.83, Nucleated RBC % 0 05/18/20 08:14: Sodium 136, Potassium 3.5, Chloride 100, Carbon Dioxide 27.0, Anion Gap 9, BUN 53 H, Creatinine 1.16 H, Estim Creat Clear Calc 35.69, Est GFR (MDRD) Af Amer 59 L, Est GFR (MDRD) Non-Af 49 L, BUN/Creatinine Ratio 45.7 H, Glucose 144 H, Calcium 9.1 Inpatient E&M: [id number] Disch Hosp
[2020-05-18] MEDS: LORazepam 1 MG Tablet PO (11:45)
[2020-05-18] MEDS: Cilostazol 50 MG Tablet 100 MG PO (11:46)
[2020-05-18] MEDS: Pantoprazole Sodium 20 MG Tablet PO (11:46)
[2020-05-18] MEDS: Gabapentin 600 MG Tablet PO (11:46)
[2020-05-18] MEDS: guaiFENesin 1,200 MG Tablet 1200 MG PO (11:46)
[2020-05-18] MEDS: Metoprolol(XL)Succ 100 MG Tablet PO (11:46)
[2020-05-18] MEDS: Furosemide 40 MG Tablet PO (11:46)
[2020-05-18] MEDS: Hydroxychloroquine 200 MG Tablet PO (11:46)
[2020-05-18] MEDS: Montelukast 10 MG Tablet PO (11:46)
[2020-05-18] MEDS: Fluticasone 0.05% 1 SPRAY NASAL.SRY 2 SPRAY NASAL (11:47)
[2020-05-18] MEDS: Loratadine 10 MG Tablet PO (11:47)
[2020-05-18] MEDS: Enoxaparin 40 MG/0.4 ML Syringe SC (11:47)
== END 2020-05-18 12:35 | disposition home or self-care (01) | DRG 190 ==
LOC: ICU 05-17 10:45 → PCU 05-17 15:26
PROVIDERS: Family Medicine; Internal Medicine Critical Care Medicine; Admitting Provider Internal Medicine; PCP Student in an Organized Health Care Education/Training Program; Visit Provider Student in an Organized Health Care Education/Training Program
DX: J44.1 Chronic obstructive pulmonary disease with (acute) exacerbation (principal); J96.21 Acute and chronic respiratory failure with hypoxia; J96.22 Acute and chronic respiratory failure with hypercapnia; G92 Toxic encephalopathy; I50.32 Chronic diastolic (congestive) heart failure; I27.20 Pulmonary hypertension, unspecified; I11.0 Hypertensive heart disease with heart failure; M06.9 Rheumatoid arthritis, unspecified; E78.5 Hyperlipidemia, unspecified; F32.9 Major depressive disorder, single episode, unspecified; F41.9 Anxiety disorder, unspecified; K21.9 Gastro-esophageal reflux disease without esophagitis; E03.9 Hypothyroidism, unspecified; F17.210 Nicotine dependence, cigarettes, uncomplicated; G89.29 Other chronic pain; T40.605A Adverse effect of unspecified narcotics, initial encounter; Z79.899 Other long term (current) drug therapy; Z79.51 Long term (current) use of inhaled steroids; Z79.02 Long term (current) use of antithrombotics/antiplatelets; Z95.810 Presence of automatic (implantable) cardiac defibrillator; Z91.19 Patient's noncompliance with other medical treatment and regimen
CPT/HCPCS: 36415; 71045; 80048; 80053; 83735; 83880; 84145; 84484; 85025; 87449; 87633; 93306; 94002; 94003; 94640; 97110; 97162; 97166; 97530; 97535; 99251; Q9957; A4216; G0463; J1940

== ENCOUNTER 2020-09-01 17:50 | Emergency (ER) | payer MEDICARE, MEDICAID, SELFPAY ==
[2020-05-16 21:45] VITALS: BMI 36.6
[2020-09-01 17:50] VITALS: BP 105/55; PULSE 70; RESP 24; TEMP 37.1; O2SAT 88; BMI 36.7
[2020-09-01 17:55] VITALS: BP 105/55; PULSE 70; RESP 24; TEMP 37.1; O2SAT 88
--- NOTE | 2020-09-01 18:26 | EKG12_ITS ---
Test Reason : SOB Blood Pressure : / mmHG Vent. Rate : 066 BPM Atrial Rate : 066 BPM P-R Int : 000 ms QRS Dur : 146 ms QT Int : 512 ms P-R-T Axes : 077 254 085 degrees QTc Int : 536 ms Ventricular-paced rhythm Abnormal ECG Confirmed by KELSEA BABCOCK, JEFFERY ([id number]), film editor DYAN KAUR ([id number]) on 09/05/2020 9:13:04 AM Referred By: Confirmed By:JEFFERY ENAMORADO MD
--- NOTE | 2020-09-01 18:27 | ED.VIS.DYS ---
HPI History of Present Illness Chief Complaint: Shortness of Breath Informant: patient, family and EMS Narrative Narrative: 69 female presents to the emergency department with leg swelling. Unfortunately almost all of her care has been at the [facility]. Including her most recent hospitalizations and rehab stays. She wanted to come to [facility] knowing we do not have access to the records because you guys always do a good job and they are not doing anything for me. She states that she left rehab on . She is out of her pain medication. Her legs have been hurting because they are swollen. She takes Lasix 60 mg once a day. She has a appointment with her director of business development on Thursday. She has felt herself wheezing due to her COPD has give herself breathing treatments. She received a breathing treatment and Solu-Medrol by EMS. She chronically wears 2 L of home oxygen. No reported fevers. No change in sputum production. No urinary symptoms. [facility] Medical History Acute encephalopathy Acute on chronic respiratory failure with hypoxia and hypercapnia Arthritis CHF (congestive heart failure) COPD (chronic obstructive pulmonary disease) Edema GERD (gastroesophageal reflux disease) HTN (hypertension) Hypothyroid Mastitis of right breast unrelated to of Presence of cardiac pacemaker Pulmonary embolism Home Medications gabapentin 600 mg PO BID 12/23/15 [History Last Taken 11/14/17] levothyroxine 200 mcg PO DAILY 12/23/15 [History Last Taken 11/14/17] omeprazole 20 mg PO DAILY 12/23/15 [History Last Taken 11/14/17] hydroxychloroquine 200 mg PO BID 10/16/16 [History Last Taken 11/14/17] albuterol sulfate 2 puff INHALATION Q4H PRN PRN #1 inhaler 11/16/17 [Rx Last Taken Unknown] ipratropium-albuterol 3 ml INHALATION Q6H.RT PRN #30 ampul.neb 11/16/17 [Rx Last Taken Unknown] albuterol sulfate [Ventolin HFA] 2 puff INHALATION Q4H PRN PRN 02/25/18 [History Last Taken Unknown] cilostazol 100 mg PO BID 02/25/18 [History Last Taken Unknown] furosemide 60 mg PO DAILY 02/25/18 [History Last Taken Unknown] metoprolol succinate 100 mg PO DAILY 02/25/18 [History Last Taken Unknown] Escitalopram Oxalate 20 mg PO QHS 12/06/19 [History Last Taken Unknown] etodolac 200 mg PO BID 12/06/19 [History Last Taken Unknown] magnesium oxide 400 mg PO DAILY 12/06/19 [History Last Taken Unknown] mirtazapine 30 mg PO QHS 12/06/19 [History Last Taken Unknown] montelukast 10 mg PO DAILY 12/06/19 [History Last Taken Unknown] [id number] [Trelegy Ellipta] 1 inh INHALATION DAILY 09/01/20 [History Last Taken Unknown] prednisone 60 mg PO DAILY #15 tablet 09/01/20 [Rx Last Taken Unknown] warfarin [Coumadin] 4 mg PO DAILY 09/01/20 [History Last Taken Unknown] Allergy/AdvReac Type Severity Reaction Status Date / Time citalopram Allergy Other Verified 09/01/20 17:57 latex Allergy Rash Verified 09/01/20 17:57 methotrexate Allergy Other Verified 09/01/20 17:57 Sulfa (Sulfonamide Allergy Rash Verified 09/01/20 17:57 Antibiotics) bupropion AdvReac Hives Verified 09/01/20 17:57 Phenothiazines AdvReac Other Verified 09/01/20 17:57 procaine HCl [From Novocain] AdvReac Nausea/Vom/ Verified 09/01/20 17:57 Diarrhea Social History (Updated 09/01/20 @ 18:[address] Samuel Carson, DO) Smoking Status: Current every day smoker tobacco type: cigarettes substance use type: does not use ROS ROS ED Constitutional Constitutional ED: Denies chills or weight loss Eyes Eyes: Denies change in vision or diplopia ENT ENT ED: Denies ear pain, rhinorrhea or sore throat Cardiovascular Cardiovascular: Denies chest pain, orthopnea, palpitations or racing heartbeat Respiratory/Chest Respiratory/Chest: Reports cough, dyspnea and dyspnea on exertion; Denies orthopnea Gastrointestinal Gastrointestinal: Denies abdominal pain, diarrhea, nausea or vomiting Genitourinary Genitourinary ED: Denies dysuria, hematuria or urinary frequency Musculoskeletal Musculoskeletal: Reports other Details: Bilateral leg swelling and pain ; Denies arthralgias or myalgias Integumentary Denies abscess or rash Neurologic Neurologic: Denies headache(s) or weakness Psychiatric Psychiatric: Denies anxiety, depression, suicidal ideation or suicidal thoughts Endocrine Endocrinology: Denies polydipsia, polyphagia or polyuria Allergic/Immunologic Allergic/Immunologic ED: Denies mouth swelling, tongue swelling or urticaria EXAM Physical Exam Const Vital Signs: 09/01/20 17:50 09/01/20 17:55 09/01/20 18:32 Temperature 98.8 F 98.8 F Temperature Source Axillary Axillary Pulse Rate 70 70 Respiratory Rate 24 H 24 H Respiratory Effort Normal Respiratory Depth Normal Respiratory Pattern Normal Blood Pressure 105/55 L 105/55 L Blood Pressure Mean 71 71 Pulse Ox 88 88 Oxygen Delivery Method CPAP CPAP Oxygen Flow Rate (L/min) 09/01/20 19:06 09/01/20 19:53 09/01/20 20:17 Temperature 98.7 F 98.7 F Temperature Source Temporal Oral Pulse Rate 66 76 64 Respiratory Rate 22 H 16 16 Respiratory Effort Respiratory Depth Respiratory Pattern Blood Pressure 113/86 H 143/105 H 116/61 Blood Pressure Mean 95 117 79 Pulse Ox 95 97 94 Oxygen Delivery Method Nasal Cannula Nasal Cannula Oxygen Flow Rate (L/min) 2 2 09/01/20 21:33 Temperature Temperature Source Pulse Rate Respiratory Rate 18 Respiratory Effort Respiratory Depth Respiratory Pattern Blood Pressure Blood Pressure Mean Pulse Ox Oxygen Delivery Method Oxygen Flow Rate (L/min) Positive well nourished and well developed General Appearance ED: well developed HEENT Reports normocephalic, head/scalp atraumatic and moist mucous membranes Eyes PERRL and EOMs intact bilaterally Neck no lymphadenopathy, supple and no JVD Resp normal respiratory effort Auscultation: wheezes Cardio regular rate, regular rhythm and no murmurs GI normal to inspection, nondistended, normoactive bowel sounds and non-tender Palpation: soft Back/Spine no CVA tenderness and normal ROM Extremity Extremity Narrative: 1+ pitting nontense edema bilaterally. Patient reports tenderness to palpation General Extremety ED: Yes edema General Extremity: edema Neuro oriented x3 and CN's II-XII intact bilaterally Sensorium / Orientation: alert Motor Exam: strength 5/5 throughout Psych mental status grossly normal Mood & Affect: Negative for depressed or tearful Skin no rashes or lesions noted and no wounds MDM MDM MDM Narrative Medical decision making narrative: My interpretation of the chest x-ray is no acute process. White count is slightly elevated 13.8 hemoglobin 11.2. INR 1.9. Glucose 116. Troponin 13.4 natruretic peptide slightly elevated at 243. Patient received a breathing treatment. She will receive Solu-Medrol from EMS. I think the patient has 2 things going on tonight. Want to think she has a COPD exacerbation as her increased dyspnea and her wheezing. I will write for burst prednisone. She also has lower extremity edema which I suspect is probably due to her recent hospitalizations and rehab stay. She will monitor her salt intake and double her Lasix to 60 mg twice daily. She has follow-up with her director of business development in less than 48 hours. I do not think that this is pulmonary embolism. She is not dyspneic or hypoxic at rest. She is not tachycardic she is not experiencing chest pain. Her INR is slightly low at 1.9. She does not wish CTA. When I have her take an extra dose of her Coumadin tonight. I instructed her also to take an extra potassium pill every other day to ensure she does not get hypokalemic. Patient is very comfortable with this plan. Lab Data Attestation: I reviewed the patient's lab results. Labs: Laboratory Results - last 24 hr 09/01/20 09/01/20 09/01/20 17:58 17:58 17:58 WBC 13.8 H RBC 3.92 L Hgb 11.2 L Hct 36.6 L MCV 93.4 MCH 28.6 MCHC 30.6 L RDW Std Deviation 54.4 H RDW Coeff of Alberto 15.9 H Plt Count 191 MPV 10.3 Immature Gran % (Auto) 2.700 H Neut % (Auto) 63.4 Lymph % (Auto) 23.2 [place] % (Auto) 7.9 Eos % (Auto) 2.3 Baso % (Auto) 0.5 Absolute Neuts (auto) 8.8 H Absolute Lymphs (auto) 3.21 Nucleated RBC % 0 PT 21.0 H INR 1.9 Sodium 141 Potassium 3.5 Chloride 104 Carbon Dioxide 31.0 Anion Gap 6 BUN 25 H Creatinine 0.87 Estim Creat Clear Calc 45.40 Est GFR (MDRD) Af Amer 82 Est GFR (MDRD) Non-Af 68 BUN/Creatinine Ratio 28.7 H Glucose 116 H Calcium 8.3 L Total Bilirubin 0.30 AST 33 ALT 47 Alkaline Phosphatase 99 Troponin I High Sens 13.4 B-Natriuretic Peptide Total Protein 6.2 L Albumin 2.7 L Globulin 3.5 Albumin/Globulin Ratio 0.8 L 09/01/20 17:58 WBC RBC Hgb Hct MCV MCH MCHC RDW Std Deviation RDW Coeff of Alberto Plt Count MPV Immature Gran % (Auto) Neut % (Auto) Lymph % (Auto) [place] % (Auto) Eos % (Auto) Baso % (Auto) Absolute Neuts (auto) Absolute Lymphs (auto) Nucleated RBC % PT INR Sodium Potassium Chloride Carbon Dioxide Anion Gap BUN Creatinine Estim Creat Clear Calc Est GFR (MDRD) Af Amer Est GFR (MDRD) Non-Af BUN/Creatinine Ratio Glucose Calcium Total Bilirubin AST ALT Alkaline Phosphatase Troponin I High Sens B-Natriuretic Peptide 243.4 H Total Protein Albumin Globulin Albumin/Globulin Ratio Radiography Diagnostic Testing: Radiology Impression Chest X-Ray 09/01/20 18:55 IMPRESSION: No acute cardiopulmonary process. Electronically Signed: Manpreet Putnam MD at 20:23 EDT Tel , Service support , EKG Initial EKG: Attestation: I personally reviewed and interpreted this EKG as follows: Comments: EKG is a ventricularly paced rhythm at 66 bpm. Discharge Plan Triage Chief Complaint: Shortness of Breath ED Provider: Samuel Carson Dx/Rx/DC Orders Clinical Impression: COPD with acute exacerbation, Lymphedema Instructions: ED COPD Flare, ED Lymphedema Prescriptions: New prednisone 20 MG tablet 60 mg PO DAILY Qty: 15 RF: 0 No Action levothyroxine 125 MCG tablet 200 mcg PO DAILY RF: 0 gabapentin 300 MG capsule 600 mg PO BID RF: 0 omeprazole 20 MG capsule,delayed release(DR/EC) 20 mg PO DAILY RF: 0 hydroxychloroquine 200 MG tablet 200 mg PO BID RF: 0 albuterol sulfate 1 PUFF inhaler 2 puff INHALATION Q4H PRN PRN (Reason: Dyspnea/Wheezing/Sob) Qty: 1 RF: 0 ipratropium-albuterol 3 ML solution for nebulization 3 ml INHALATION Q6H.RT PRN (Reason: Sob &/Or Wheezing) Qty: 30 RF: 0 furosemide 40 MG tablet 60 mg PO DAILY RF: 0 cilostazol 100 MG tablet 100 mg PO BID RF: 0 metoprolol succinate 200 MG tablet 100 mg PO DAILY RF: 0 albuterol sulfate [Ventolin HFA] 90 MCG HFA aerosol inhaler 2 puff inhalation Q4H PRN PRN (Reason: Sob &/Or Wheezing) RF: 0 etodolac 200 MG capsule 200 mg PO BID RF: 0 montelukast 10 MG tablet 10 mg PO DAILY RF: 0 mirtazapine 15 MG tablet,disintegrating 30 mg PO QHS RF: 0 magnesium oxide 400 MG capsule 400 mg PO DAILY RF: 0 Escitalopram Oxalate 20 MG tablet 20 mg PO QHS RF: 0 Trelegy Ellipta 100-62.5-25 mcg Blister With Device 1 inh INHALATION DAILY RF: 0 warfarin [Coumadin] 4 mg Tablet 4 mg PO DAILY RF: 0 Primary Care Provider: Luigi Parrish Referrals: Luigi Parrish DO [Primary Care Provider] - 3-5 Days if not improving Activity Restrictions/Additional Instructions: For the next 5 days while you are on prednisone double your Lasix to 60 mg twice a day Take a extra potassium pill every other day while you are on the increased dose of Lasix. Monitor your salt intake closely Use an albuterol nebulizer at least every 4 hours. Disposition Disposition: Home, Self Care Discharge Date/Time: 09/01/20 21:34
[2020-09-01 18:40] LABS: Absolute Lymphocyte Count 3.21 X10^3/uL (0.83-4.51); Absolute Neutrophil Count 8.8 X10^3/uL (2.0-7.7); Basophil# 0.07 X10^3/uL; Basophil% 0.5 % (0-1); Eosinophil# 0.32 X10^3/uL; Eosinophils% 2.3 % (0-5); Hematocrit 36.6 % (37-47); Hemoglobin 11.2 g/dL (12.0-15.0); Lymphocyte # 3.21 X10^3/ul (0.83-4.51); Lymphocyte % 23.2 % (19-41); Mean Corp Hgb Conc 30.6 g/dL (32-36); Mean Corpuscular Hgb 28.6 pg (27.0-32.0); Mean Corpuscular Volume 93.4 fL (81-99); Mean Platelet Vol. 10.3 fl (6.2-12.0); Monocyte# 1.09 X10^3/uL; Monocyte% 7.9 % (0-10); NRBC Flagged by Analyzer 0 % (0-5); Neutrophil # 8.76 X10^3/uL (2.7-7.7); Neutrophil % 63.4 % (47-70); Platelet Count 191 K/mm3 (150-450); RBC Distribution Width CV 15.9 % (11.6-14.6); RBC Distribution Width SD 54.4 fl (35.1-43.9); Red Blood Count 3.92 M/mm3 (4.2-5.4); White Blood Count 13.8 K/mm3 (4.4-11.0)
[2020-09-01 18:46] LABS: International Normalized Ratio 1.9
[2020-09-01 18:55] LABS: ALB/GLOB Ratio 0.8 RATIO (0.9-2.4); AST(SGOT) 33 U/L (15-37); Alanine Aminotransfer ALT/SGPT 47 U/L (13-56); Albumin, Serum 2.7 g/dL (3.2-5.0); Alkaline Phosphatase 99 U/L (45-117); Anion Gap 6 (5-15); BUN 25 mg/dL (7-18); BUN/Creat Ratio 28.7 RATIO (10-20); Calcium,Total 8.3 mg/dL (8.5-10.1); Chloride 104 mmol/L (98-107); Creatinine, Serum 0.87 mg/dL (0.55-1.02); EST Glomerular Filtration Rate 68 mL/min (>60); Est Glom Filt Rate - Afr Amer 82 mL/min (>60); Globulin 3.5 g/dL (2.2-4.2); Glucose 116 mg/dL (74-106); Potassium 3.5 mmol/L (3.5-5.1); Protein, Total 6.2 g/dL (6.4-8.2); Sodium Level 141 mmol/L (136-145); Troponin-I HS 13.4 pg/mL (3.0-53.7)
--- NOTE | 2020-09-01 18:55 | RAD_ITS ---
STUDY: X-RAY CHEST REASON FOR EXAM: Female, 69 years old. CHF TECHNIQUE: 1 view COMPARISON: 05/17/2020 FINDINGS: Left-sided AICD is in place. Cardiomediastinal silhouette is unremarkable. Costophrenic angles are sharp. Lungs are clear. The trachea is midline. There is no pneumothorax. The bones are grossly intact. RAD/Chest 1 View (Portable) IMPRESSION: No acute cardiopulmonary process. Electronically Signed: Manpreet Putnam MD at 20:23 EDT Tel , Service support ,
[2020-09-01 18:57] LABS: BNP,B-Type NATRIURETIC PEPTIDE 243.4 pg/mL (0-100)
[2020-09-01 19:06] VITALS: BP 113/86; PULSE 66; RESP 22; TEMP 37.1; O2SAT 95
[2020-09-01] MEDS: HYDROcodone Bitartrate/Apap 5/325 Tablet PO (19:31)
[2020-09-01 19:53] VITALS: BP 143/105; PULSE 76; RESP 16; O2SAT 97
[2020-09-01 20:17] VITALS: BP 116/61; PULSE 64; RESP 16; TEMP 37.1; O2SAT 94
[2020-09-01 21:33] VITALS: RESP 18
== END 2020-09-01 21:34 | disposition home or self-care (01) ==
PROVIDERS: Emergency Provider Emergency Medicine; PCP Student in an Organized Health Care Education/Training Program
DX: J44.1 Chronic obstructive pulmonary disease with (acute) exacerbation (principal); I89.0 Lymphedema, not elsewhere classified; F17.210 Nicotine dependence, cigarettes, uncomplicated; K21.9 Gastro-esophageal reflux disease without esophagitis; I11.0 Hypertensive heart disease with heart failure; I50.9 Heart failure, unspecified; E03.9 Hypothyroidism, unspecified; Z79.01 Long term (current) use of anticoagulants; Z79.899 Other long term (current) drug therapy; Z95.0 Presence of cardiac pacemaker
CPT/HCPCS: 71045; 80053; 83880; 84484; 85025; 85610; 93005; 99285; A4216

== ENCOUNTER 2020-10-25 14:50 | Emergency (ER) | payer MEDICARE, MEDICAID, SELFPAY ==
[2020-10-25 14:52] VITALS: BP 127/63; PULSE 74; RESP 17; TEMP 36.6; O2SAT 93; BMI 32.9
--- NOTE | 2020-10-25 15:44 | VDLE_ITS ---
Reason For Study: Pain RIGHT LEFT GSV is normal. CFV is compressible, spontaneous, phasic, RT PerV is compressible. competent, and demonstrates normal Acute deep vein thrombosis is noted in the augmentation. right CFV, FV, PopV T/P Trunk, GastrocV and PTV. CFV and T/P Trunk are partially compressible with minimal flow noted. Procedure This is a venous duplex using B-mode, color flow and spectral Doppler. Exam performed portable in ED. A preliminary report was called and/or faxed to [facility]. VL/Venous Duplex US, Unilateral Interpretation Summary Acute deep venous thrombosis with visible thrombus noted in the right common fe moral vein. Acute deep venous thrombosis right femoral, popliteal, tibioperoneal trunk, gastrocne mius and posterior tibial veins. Patent and compressible right great saphenous vein Normal flow patterns left common femoral vein Ordering Physician: Samuel Carson Referring Physician: Luigi Parrish Performed By: Geri Silva RVT
--- NOTE | 2020-10-25 15:46 | ED.VIS.LOWEX ---
HPI History of Present Illness Chief Complaint: Edema Informant: patient Narrative Narrative: 69-year-old female presenting to the emergency room with right greater than left foot swelling. Patient states that for months she has had intermittent swelling of the legs. She sometimes will wear compression stockings. 3 weeks ago she had her Lasix increased to 40 mg twice a day. She states that today the right foot is significantly more swollen and the calf is painful. She notes that she is on Coumadin for pulmonary embolism. Last week her INR was 1.8. She notes a burning pain in her feet when she attempts to walk. She states that she has an appointment next week to have lymph node biopsies for possible lymphoma. The patient is a longtime smoker. [facility] Medical History Acute encephalopathy Acute on chronic respiratory failure with hypoxia and hypercapnia Arthritis CHF (congestive heart failure) COPD (chronic obstructive pulmonary disease) Edema GERD (gastroesophageal reflux disease) HTN (hypertension) Hypothyroid Mastitis of right breast unrelated to of Presence of cardiac pacemaker Pulmonary embolism Home Medications gabapentin 600 mg PO BID 12/23/15 [History Last Taken 11/14/17] levothyroxine 200 mcg PO DAILY 12/23/15 [History Last Taken 11/14/17] omeprazole 20 mg PO DAILY 12/23/15 [History Last Taken 11/14/17] hydroxychloroquine 200 mg PO BID 10/16/16 [History Last Taken 11/14/17] albuterol sulfate 2 puff INHALATION Q4H PRN PRN #1 inhaler 11/16/17 [Rx Last Taken Unknown] ipratropium-albuterol 3 ml INHALATION Q6H.RT PRN #30 ampul.neb 11/16/17 [Rx Last Taken Unknown] albuterol sulfate [Ventolin HFA] 2 puff INHALATION Q4H PRN PRN 02/25/18 [History Last Taken Unknown] cilostazol 100 mg PO BID 02/25/18 [History Last Taken Unknown] furosemide 60 mg PO DAILY 02/25/18 [History Last Taken Unknown] metoprolol succinate 100 mg PO DAILY 02/25/18 [History Last Taken Unknown] Escitalopram Oxalate 20 mg PO QHS 12/06/19 [History Last Taken Unknown] etodolac 200 mg PO BID 12/06/19 [History Last Taken Unknown] magnesium oxide 400 mg PO DAILY 12/06/19 [History Last Taken Unknown] mirtazapine 30 mg PO QHS 12/06/19 [History Last Taken Unknown] montelukast 10 mg PO DAILY 12/06/19 [History Last Taken Unknown] [id number]-[id number]-[id number] [Trelegy Ellipta] 1 inh INHALATION DAILY 09/01/20 [History Last Taken Unknown] prednisone 60 mg PO DAILY #15 tablet 09/01/20 [Rx Last Taken Unknown] apixaban [Eliquis] 5 mg PO BID #74 tab 10/25/20 [Rx Last Taken Unknown] hydrocodone-acetaminophen 1 tab PO Q6H PRN PRN 3 Days #12 tablet 10/25/20 [Rx Last Taken Unknown] Allergy/AdvReac Type Severity Reaction Status Date / Time citalopram Allergy Other Verified 10/25/20 14:51 latex Allergy Rash Verified 10/25/20 14:51 methotrexate Allergy Other Verified 10/25/20 14:51 Sulfa (Sulfonamide Allergy Rash Verified 10/25/20 14:51 Antibiotics) bupropion AdvReac Hives Verified 10/25/20 14:51 Phenothiazines AdvReac Other Verified 10/25/20 14:51 procaine HCl [From Novocain] AdvReac Nausea/Vom/ Verified 10/25/20 14:51 Diarrhea Social History Smoking Status: Current every day smoker tobacco type: cigarettes substance use type: does not use ROS ROS ED Constitutional Constitutional ED: Denies chills or weight loss Eyes Eyes: Denies change in vision or diplopia ENT ENT ED: Denies ear pain, rhinorrhea or sore throat Cardiovascular Cardiovascular: Denies chest pain, orthopnea, palpitations or racing heartbeat Respiratory/Chest Respiratory/Chest: Denies cough, dyspnea or orthopnea Gastrointestinal Gastrointestinal: Denies abdominal pain, diarrhea, nausea or vomiting Genitourinary Genitourinary ED: Denies dysuria, hematuria or urinary frequency Musculoskeletal Musculoskeletal: Reports other Details: See history of present illness ; Denies arthralgias or myalgias Integumentary Denies abscess or rash Neurologic Neurologic: Denies headache(s) or weakness Psychiatric Psychiatric: Denies anxiety, depression, suicidal ideation or suicidal thoughts Endocrine Endocrinology: Denies polydipsia, polyphagia or polyuria Allergic/Immunologic Allergic/Immunologic ED: Denies mouth swelling, tongue swelling or urticaria EXAM Physical Exam Const Vital Signs: 10/25/20 14:52 Temperature 97.9 F Temperature Source Temporal Pulse Rate 74 Respiratory Rate 17 Blood Pressure 127/63 H Blood Pressure Mean 84 Pulse Ox 93 Oxygen Delivery Method Room Air Positive well nourished and well developed General Appearance ED: well developed HEENT Reports normocephalic, head/scalp atraumatic and moist mucous membranes Eyes PERRL and EOMs intact bilaterally Neck no lymphadenopathy, supple and no JVD Resp normal respiratory effort and clear to auscultation bilaterally Cardio regular rate, regular rhythm and no murmurs GI normal to inspection, nondistended, normoactive bowel sounds and non-tender Palpation: soft Back/Spine no CVA tenderness and normal ROM Extremity normal to inspection Extremity Narrative: Right calf is tender to palpation. The right calf is larger in size compared to the left. The right foot is significantly more edematous compared to the left. General Extremety ED: Yes edema General Extremity: edema Neuro oriented x3 and CN's II-XII intact bilaterally Sensorium / Orientation: alert Motor Exam: strength 5/5 throughout Psych mental status grossly normal Mood & Affect: Negative for depressed or tearful Skin no rashes or lesions noted and no wounds MDM MDM MDM Narrative Medical decision making narrative: Patient's creatinine today is 1. Duplex ultrasound demonstrates acute DVT in the common femoral vein femoral vein popliteal vein gastrocnemius and popliteal. I spoke with the patient's primary care physicians on-call. They do not see a strong reason why the patient has to be on Coumadin. Therefore recommendation would be to change her to Eliquis to prevent her from becoming subtherapeutic. Patient is comfortable with this plan. I will also write for some pain medication at home Lab Data Attestation: I reviewed the patient's lab results. Labs: Laboratory Results - last 24 hr 10/25/20 10/25/20 15:30 15:30 WBC 11.2 H RBC 4.67 Hgb 12.9 Hct 40.5 MCV 86.7 MCH 27.6 MCHC 31.9 L RDW Std Deviation 47.8 H RDW Coeff of Alberto 14.9 H Plt Count 205 MPV 9.9 Immature Gran % (Auto) 0.500 Neut % (Auto) 63.6 Lymph % (Auto) 22.9 [place] % (Auto) 7.0 Eos % (Auto) 4.8 Baso % (Auto) 1.2 H Absolute Neuts (auto) 7.1 Absolute Lymphs (auto) 2.56 Nucleated RBC % 0 Sodium 138 Potassium 3.9 Chloride 106 Carbon Dioxide 28.0 Anion Gap 4 L BUN 12 Creatinine 1.01 Estim Creat Clear Calc 40.99 Est GFR (MDRD) Af Amer 70 Est GFR (MDRD) Non-Af 57 L BUN/Creatinine Ratio 11.9 Glucose 95 Calcium 9.4 Discharge Plan Triage Chief Complaint: Edema ED Provider: Samuel Carson Dx/Rx/DC Orders Clinical Impression: DVT (deep venous thrombosis) Instructions: ED Deep Vein Thrombosis (DVT) Prescriptions: New hydrocodone-acetaminophen [hydrocodone-acetaminophen] 1 TABLET tablet 1 tab PO Q6H PRN PRN (Reason: Pain) 3 Days Qty: 12 RF: 0 Eliquis 5 MG tablet 5 mg PO BID Qty: 74 RF: 0 Discontinued warfarin [Coumadin] 4 mg Tablet 4 mg PO DAILY RF: 0 No Action levothyroxine 125 MCG tablet 200 mcg PO DAILY RF: 0 gabapentin 300 MG capsule 600 mg PO BID RF: 0 omeprazole 20 MG capsule,delayed release(DR/EC) 20 mg PO DAILY RF: 0 hydroxychloroquine 200 MG tablet 200 mg PO BID RF: 0 albuterol sulfate 1 PUFF inhaler 2 puff INHALATION Q4H PRN PRN (Reason: Dyspnea/Wheezing/Sob) Qty: 1 RF: 0 ipratropium-albuterol 3 ML solution for nebulization 3 ml INHALATION Q6H.RT PRN (Reason: Sob &/Or Wheezing) Qty: 30 RF: 0 furosemide 40 MG tablet 60 mg PO DAILY RF: 0 cilostazol 100 MG tablet 100 mg PO BID RF: 0 metoprolol succinate 200 MG tablet 100 mg PO DAILY RF: 0 albuterol sulfate [Ventolin HFA] 90 MCG HFA aerosol inhaler 2 puff inhalation Q4H PRN PRN (Reason: Sob &/Or Wheezing) RF: 0 etodolac 200 MG capsule 200 mg PO BID RF: 0 montelukast 10 MG tablet 10 mg PO DAILY RF: 0 mirtazapine 15 MG tablet,disintegrating 30 mg PO QHS RF: 0 magnesium oxide 400 MG capsule 400 mg PO DAILY RF: 0 Escitalopram Oxalate 20 MG tablet 20 mg PO QHS RF: 0 Trelegy Ellipta 100-62.5-25 mcg Blister With Device 1 inh INHALATION DAILY RF: 0 prednisone 20 MG tablet 60 mg PO DAILY Qty: 15 RF: 0 Primary Care Provider: Luigi Parrish Referrals: Luigi Parrish DO [Primary Care Provider] - 1 Week Disposition Disposition: Home, Self Care
[2020-10-25 16:07] LABS: Absolute Lymphocyte Count 2.56 X10^3/uL (0.83-4.51); Absolute Neutrophil Count 7.1 X10^3/uL (2.0-7.7); Basophil# 0.13 X10^3/uL; Basophil% 1.2 % (0-1); Eosinophil# 0.54 X10^3/uL; Eosinophils% 4.8 % (0-5); Hematocrit 40.5 % (37-47); Hemoglobin 12.9 g/dL (12.0-15.0); Lymphocyte # 2.56 X10^3/ul (0.83-4.51); Lymphocyte % 22.9 % (19-41); Mean Corp Hgb Conc 31.9 g/dL (32-36); Mean Corpuscular Hgb 27.6 pg (27.0-32.0); Mean Corpuscular Volume 86.7 fL (81-99); Mean Platelet Vol. 9.9 fl (6.2-12.0); Monocyte# 0.78 X10^3/uL; NRBC Flagged by Analyzer 0 % (0-5); Neutrophil # 7.11 X10^3/uL (2.7-7.7); Neutrophil % 63.6 % (47-70); Platelet Count 205 K/mm3 (150-450); RBC Distribution Width CV 14.9 % (11.6-14.6); RBC Distribution Width SD 47.8 fl (35.1-43.9); Red Blood Count 4.67 M/mm3 (4.2-5.4); White Blood Count 11.2 K/mm3 (4.4-11.0)
[2020-10-25 16:17] LABS: Anion Gap 4 (5-15); BUN 12 mg/dL (7-18); BUN/Creat Ratio 11.9 RATIO (10-20); Calcium,Total 9.4 mg/dL (8.5-10.1); Chloride 106 mmol/L (98-107); Creatinine, Serum 1.01 mg/dL (0.55-1.02); EST Glomerular Filtration Rate 57 mL/min (>60); Est Glom Filt Rate - Afr Amer 70 mL/min (>60); Estimated Creatinine Clearance 40.99 ml/min; Glucose 95 mg/dL (74-106); Potassium 3.9 mmol/L (3.5-5.1); Sodium Level 138 mmol/L (136-145)
[2020-10-25] MEDS: HYDROcodone Bitartrate/Apap 5/325 Tablet PO (16:36)
[2020-10-25] MEDS: APIXABAN 5 MG TABLET 10 MG PO (17:27)
== END 2020-10-25 17:40 | disposition home or self-care (01) ==
PROVIDERS: Emergency Provider Emergency Medicine; PCP Student in an Organized Health Care Education/Training Program
DX: I82.401 Acute embolism and thrombosis of unspecified deep veins of right lower extremity (principal); F17.210 Nicotine dependence, cigarettes, uncomplicated; Z95.0 Presence of cardiac pacemaker
CPT/HCPCS: 80048; 85025; 93971; 99283

== ENCOUNTER → 2020-12-12 14:55 | Outpatient (CLI) | payer MEDICARE, MEDICAID, SELFPAY ==
[2020-12-12 16:30] LABS: Thyroid Stim Hormone (TSH) 0.04 uIU/mL (0.358-3.74)
== END ==
PROVIDERS: PCP Student in an Organized Health Care Education/Training Program; Referring Provider Internal Medicine Hematology & Oncology; Visit Provider Internal Medicine Hematology & Oncology
DX: C34.90 Malignant neoplasm of unspecified part of unspecified bronchus or lung (principal)
CPT/HCPCS: 84443

== ENCOUNTER → 2021-01-02 10:58 | Outpatient (CLI) | payer MEDICARE, MEDICAID, SELFPAY ==
[2021-01-02 11:16] LABS: Absolute Lymphocyte Count 2.98 X10^3/uL (0.83-4.51); Absolute Neutrophil Count 7.8 X10^3/uL (2.0-7.7); Basophil# 0.17 X10^3/uL; Basophil% 1.4 % (0-1); Eosinophil# 0.06 X10^3/uL; Eosinophils% 0.5 % (0-5); Hematocrit 38.4 % (37-47); Hemoglobin 12.3 g/dL (12.0-15.0); Lymphocyte # 2.98 X10^3/ul (0.83-4.51); Lymphocyte % 24.2 % (19-41); Mean Corpuscular Hgb 28.7 pg (27.0-32.0); Mean Corpuscular Volume 89.7 fL (81-99); Mean Platelet Vol. 10.6 fl (6.2-12.0); Monocyte# 0.98 X10^3/uL; NRBC Flagged by Analyzer 0.2 % (0-5); Neutrophil # 7.79 X10^3/uL (2.7-7.7); Neutrophil % 63.4 % (47-70); Platelet Count 173 K/mm3 (150-450); RBC Distribution Width CV 18.3 % (11.6-14.6); Red Blood Count 4.28 M/mm3 (4.2-5.4); White Blood Count 12.3 K/mm3 (4.4-11.0)
[2021-01-02 11:39] LABS: ALB/GLOB Ratio 0.9 RATIO (0.9-2.4); AST(SGOT) 27 U/L (15-37); Alanine Aminotransfer ALT/SGPT 25 U/L (13-56); Albumin, Serum 3.1 g/dL (3.2-5.0); Alkaline Phosphatase 111 U/L (45-117); Anion Gap 6 (5-15); BUN 20 mg/dL (7-18); BUN/Creat Ratio 22.8 RATIO (10-20); Calcium,Total 8.8 mg/dL (8.5-10.1); Chloride 104 mmol/L (98-107); Creatinine, Serum 0.88 mg/dL (0.55-1.02); EST Glomerular Filtration Rate 67 mL/min (>60); Est Glom Filt Rate - Afr Amer 82 mL/min (>60); Globulin 3.6 g/dL (2.2-4.2); Glucose 93 mg/dL (74-106); Potassium 3.8 mmol/L (3.5-5.1); Protein, Total 6.7 g/dL (6.4-8.2); Sodium Level 140 mmol/L (136-145)
== END ==
PROVIDERS: PCP Student in an Organized Health Care Education/Training Program; Visit Provider Internal Medicine Hematology & Oncology
DX: C34.90 Malignant neoplasm of unspecified part of unspecified bronchus or lung (principal); C34.91 Malignant neoplasm of unspecified part of right bronchus or lung
CPT/HCPCS: 80053; 84443; 85025

== ENCOUNTER 2022-01-26 22:17 | Emergency (ER) | payer MEDICARE, MEDICAID, SELFPAY ==
[2022-01-26 22:18] VITALS: BP 131/99; PULSE 83; RESP 16; TEMP 37.1; O2SAT 97; BMI 26.5
[2022-01-26 22:22] VITALS: BP 131/99; PULSE 83; RESP 16; TEMP 37.1; O2SAT 97
--- NOTE | 2022-01-26 22:36 | EKG12_ITS ---
Test Reason : weakness Blood Pressure : / mmHG Vent. Rate : 084 BPM Atrial Rate : 084 BPM P-R Int : 000 ms QRS Dur : 124 ms QT Int : 424 ms P-R-T Axes : 103 251 093 degrees QTc Int : 501 ms Ventricular-paced rhythm Abnormal ECG Confirmed by KELSEA BABCOCK, JEFFERY ([id number]), publishing editor DYAN KAUR ([id number] on 01/29/2022 8:47:48 AM Referred By: Confirmed By:JEFFERY ENAMORADO MD
--- NOTE | 2022-01-26 22:37 | EX.ED.DYSGE1 ---
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 CHF, COPD prior DVT. Currently on Eliquis. She was recently hospitalized at [facility] and in November in [place]. Abdomen done this past week she was transfused 1 unit of blood. She denies any melena. No fever. No vomiting. Prior similar symptoms: Yes Recent Illness/Hospitalization: Yes [facility] Medical History Acute encephalopathy Acute on chronic respiratory failure with hypoxia and hypercapnia Arthritis CHF (congestive heart failure) COPD (chronic obstructive pulmonary disease) Edema GERD (gastroesophageal reflux disease) HTN (hypertension) Hypothyroid Lung cancer Mastitis of right breast unrelated to of Presence of cardiac pacemaker Pulmonary embolism Home Medications gabapentin 300 mg capsule 600 mg PO BID nerve pain 12/23/15 [History Last Taken 11/14/17] levothyroxine 125 mcg tablet 200 mcg PO DAILY thyroid 12/23/15 [History Last Taken 11/14/17] omeprazole 20 mg capsule,delayed release 20 mg PO DAILY reflux 12/23/15 [History Last Taken 11/14/17] hydroxychloroquine 200 mg tablet 200 mg PO BID inflammation 10/16/16 [History Last Taken 11/14/17] albuterol sulfate 90 mcg/actuation aerosol inhaler 2 puff inhalation Q4H PRN PRN Dyspnea/Wheezing/Sob ##1 11/16/17 [Rx Last Taken Unknown] ipratropium 0.5 mg-albuterol 3 mg (2.5 mg base)/3 mL nebulization soln 3 ml inhalation Q6H.RT PRN Sob &/Or Wheezing ##30 11/16/17 [Rx Last Taken Unknown] albuterol sulfate 90 mcg/actuation aerosol inhaler (Ventolin HFA) 2 puff inhalation Q4H PRN PRN Sob &/Or Wheezing 02/25/18 [History Last Taken Unknown] cilostazol 100 mg tablet 100 mg PO BID peripheral vascular disease 02/25/18 [History Last Taken Unknown] furosemide 40 mg tablet 60 mg PO DAILY diuretic 02/25/18 [History Last Taken Unknown] metoprolol succinate 200 mg tablet,extended release 24 hr 100 mg PO DAILY blood pressure 02/25/18 [History Last Taken Unknown] Escitalopram Oxalate 20 mg PO QHS depression 12/06/19 [History Last Taken Unknown] etodolac 200 mg capsule 200 mg PO BID pain 12/06/19 [History Last Taken Unknown] magnesium oxide 400 mg PO DAILY supplement 12/06/19 [History Last Taken Unknown] mirtazapine 15 mg disintegrating tablet 30 mg PO QHS mental health 12/06/19 [History Last Taken Unknown] montelukast 10 mg tablet 10 mg PO DAILY allergies 12/06/19 [History Last Taken Unknown] fluticasone fur. 100 mcg-umeclid 62.5 mcg-vilant 25 mcg inhalat.powder (Trelegy Ellipta) 1 inh inhalation DAILY 09/01/20 [History Last Taken Unknown] prednisone 20 mg tablet 60 mg PO DAILY #15 TABLETS 09/01/20 [Rx Last Taken Unknown] apixaban 5 mg tablet (Eliquis) 5 mg PO BID #74 tabs 10/25/20 [Rx Last Taken Unknown] hydrocodone-acetaminophen 5-325mg 5mg-325mg 1 tab PO Q6H PRN PRN Pain 3 days #12 TABLETS 10/25/20 [Rx Last Taken Unknown] Allergy/AdvReac Type Severity Reaction Status Date / Time citalopram Allergy Other Verified 01/26/22 22:18 latex Allergy Rash Verified 01/26/22 22:18 methotrexate Allergy Other Verified 01/26/22 22:18 Sulfa (Sulfonamide Allergy Rash Verified 01/26/22 22:18 Antibiotics) bupropion AdvReac Hives Verified 01/26/22 22:18 Phenothiazines AdvReac Other Verified 01/26/22 22:18 procaine HCl [From Novocain] AdvReac Nausea/Vom/ Verified 01/26/22 22:18 Diarrhea Social History Smoking Status: Former smoker substance use type: does not use ROS ROS ED ROS Narrative Generalized weakness. Review of Systems ROS Unobtainable: Denies due to encephalopathy Constitutional Constitutional ED: Denies chills or fever(s) Eyes Eyes: Denies blurry vision ENT ENT ED: Denies ear pain Cardiovascular Cardiovascular: Denies chest pain Respiratory/Chest Respiratory/Chest: Denies cough or dyspnea Gastrointestinal Gastrointestinal: Reports diarrhea; Denies abdominal pain, melena, nausea or vomiting Genitourinary Genitourinary ED: Denies dysuria or hematuria Musculoskeletal Musculoskeletal: Denies arthralgias Integumentary Denies abscess Neurologic Neurologic: Denies headache(s) Psychiatric Psychiatric: Denies anxiety Endocrine Endocrinology: Denies cold intolerance Hematologic/Lymphatic Hematologic/Lymphatic: Reports none Allergic/Immunologic Allergic/Immunologic ED: Denies mouth swelling or tongue swelling EXAM Physical Exam Narrative Exam Narrative: 5-year-old female no acute distress. Vital signs stable afebrile. Pulse ox 97% on 3 L of oxygen. She is typically on oxygen. Daughter at bedside. H EENT exam unremarkable atraumatic. Moist Riis membranes. Neck nontender no lymphadenopathy. Lungs coarse breath sounds in the bases. Equal symmetrical. Heart regular rate and rhythm rate about 83 no murmur. Chest wall nontender. Abdomen soft nontender. Moving all 4 extremities. 5-5 vamper strength. Dorsi plantarflexion intact. No edema. Neurologically she is awake alert. She knows where she is at. She is answering questions and following commands. Const Vital Signs: 01/26/22 22:18 01/26/22 22:22 01/26/22 22:24 Temperature 98.7 F 98.7 F Temperature Source Oral Oral Pulse Rate 83 83 Respiratory Rate 16 16 Respiratory Effort Normal Non-Labored Respiratory Pattern Normal Blood Pressure 131/99 H 131/99 H Blood Pressure Mean 109 109 Pulse Ox 97 97 Oxygen Delivery Method Nasal Cannula Nasal Cannula Oxygen Flow Rate (L/min) 3 3 Positive well nourished and well developed; Negative for obese, cachectic, contractures or unkempt General Appearance ED: well developed, NAD and pallor; Negative for unkempt, cachectic, contractures, cyanotic or diaphoretic Nutritional Appearance: Negative for cachectic or obese HEENT Reports moist mucous membranes; Denies dry mucous membranes Negative for trauma Mouth ED: No dry mucous membranes Mouth: No dry mucous membranes Eyes PERRL and EOMs intact bilaterally General Eye ED: Negative for pale conjunctiva or scleral icterus Neck no lymphadenopathy, supple and no JVD General: Negative for tenderness Lymph Lymphatic: Negative for other Chest Wall inspection of chest normal and palpation of chest normal Chest: Negative for other Resp normal respiratory effort and clear to auscultation bilaterally Effort and Inspection: Negative for retractions Auscultation: Negative for rales or rhonchi Cardio regular rate, regular rhythm, S1 normal heart sound, S2 normal heart sound and no murmurs Palpation: Negative for palpable S3 Rate: Negative for bradycardia Rhythm: Negative for abnormal rhythm GI normal to inspection, nondistended, normoactive bowel sounds, non-tender, non-distended and no masses Inspection: Negative for abdominal distention Auscultation: normoactive bowel sounds Palpation: soft; Negative for tender Bladder / Kidney Exam: No other Back/Spine no CVA tenderness General Back: Negative for CVA tenderness Cervical Spine: Negative for cervical spine tenderness Thoracic Spine / Upper Back: Negative for thoracic spinal tenderness Lumbar Spine / Lower Back: Negative for lumbar spinal tenderness Extremity normal to inspection General Extremety ED: Negative for edema or tenderness General Extremity: Negative for edema Neuro oriented x3 and CN's II-XII intact bilaterally Sensorium / Orientation: alert; Negative for orientation impaired, lethargic or stuporous Motor Exam: strength 5/5 throughout Psych mental status grossly normal Appearance: Negative for unkempt Attitude: No agitated Mood & Affect: Negative for depressed or anxious Skin no rashes or lesions noted and no wounds General Skin Exam: pallor; Negative for jaundice Lesions: No lesion noted Rashes: No rashes noted Trauma: Negative for abrasion Wounds: Negative for wounds noted MDM MDM MDM Narrative Medical decision making narrative: [id number] female generalized weakness. Has recently been hospitalized for anemia and pneumonia. She has a history of lung CA with mets. Treated with IV fluids. Screening labs and chest x-ray will be obtained. Treated with Oxy IR for pain. Repeat exam patient is doing fine at 1140. I went over all of her lab test with her and her daughter. They understand that she really does not meet any admission criteria at this time. She is currently on antibiotics for pneumonia. She was recently transfused at that time her hemoglobin was 7. She will be given another dose of pain medication for morphine and 4 Zofran and discharged back to the extended care facility by ambulance. Lab Data Attestation: I reviewed the patient's lab results. Lab results narrative: CBC shows white count 11.2. H&H 8.6 and 28.4. Platelets of 234. Chemistry sodium 135 gap of 4 normal BUN of 12 and creatinine 0.5. Liver enzymes unremarkable. Glucose 89. Urinalysis negative. No white or red cells nor bacteria nor nitrates. Labs: Laboratory Results - last 24 hr 01/26/22 01/26/22 01/26/22 22:36 22:40 23:00 WBC 11.2 H RBC 2.89 L Hgb 8.6 L Hct 28.4 L MCV 98.3 MCH 29.8 MCHC 30.3 L RDW Std Deviation 63.1 H RDW Coeff of Alberto 17.6 H Plt Count 234 MPV 8.7 Immature Gran % (Auto) 0.400 Neut % (Auto) 72.3 H Lymph % (Auto) 17.8 L [place] % (Auto) 6.2 Eos % (Auto) 2.8 Baso % (Auto) 0.5 Absolute Neuts (auto) 8.1 H Absolute Lymphs (auto) 1.99 Nucleated RBC % 0 Sodium 135 L Potassium 3.7 Chloride 104 Carbon Dioxide 27.0 Anion Gap 4 L BUN 12 Creatinine 0.50 L Estim Creat Clear Calc 42.07 Est GFR (MDRD) Af Amer 158 Est GFR (MDRD) Non-Af 130 BUN/Creatinine Ratio 24.2 H Glucose 89 Calcium 8.5 Total Bilirubin 0.30 AST 18 ALT 13 Alkaline Phosphatase 74 Total Protein 7.0 Albumin 1.8 L Globulin 5.2 H Albumin/Globulin Ratio 0.3 L Urine Color Yellow Urine Clarity Clear Urine pH 6.0 Ur Specific [place] 1.010 Urine Protein Negative Urine Glucose (UA) Normal Urine Ketones Negative Urine Occult Blood Negative Urine Nitrite Negative Urine Bilirubin Negative Urine Urobilinogen Normal Ur Leukocyte Esterase 25 H Urine RBC 0 SEEN Urine WBC 0-5 SEEN Ur Squamous Epith Cells 0-5 SEEN Urine Bacteria 0 SEEN Urine Mucus 0 SEEN Radiography Chest X-Ray - ED: 1 View, Heart, Mediastinum and Bony Structures Diagnostic Testing: Clinical Impression(s) from Imaging Studies Chest X-Ray 01/26/22 23:10 IMPRESSION: New right IJ MediPort. No pneumothorax. New small right effusion. Electronically Signed: Constantine Kunz MD at 23:35 EST Reading Location ID and State: [facility] / [place] , Service support , Chest x-ray, portable, single view shows a right pleural effusion. Right Mediport. Left-sided pacemaker defibrillator. Chronic changes. Rhythm Strip Rhythm Strip: Paced Rate: 84 EKG Initial EKG: Attestation: I personally reviewed and interpreted this EKG as follows: Interpretation: Paced Comments: Ventricular paced rhythm. Rate of 84. Discharge Plan Triage Chief Complaint: Weakness ED Provider: Yoni Jackson Dx/Rx/DC Orders Clinical Impression: Generalized weakness, COPD (chronic obstructive pulmonary disease), History of lung cancer, Chronic anticoagulation, Chronic anemia, Chronic pain Instructions: ED Weakness (Uncertain Cause) Prescriptions: No Action levothyroxine 125 MCG tablet 200 mcg PO DAILY gabapentin 300 MG capsule 600 mg PO BID Label Comments: take 1 capsule by mouth three times a day omeprazole 20 MG capsule,delayed release(DR/EC) 20 mg PO DAILY Label Comments: hydroxychloroquine 200 MG tablet 200 mg PO BID albuterol sulfate 1 PUFF inhaler 2 puff INHALATION Q4H PRN PRN (Reason: Dyspnea/Wheezing/Sob) Qty: 1 0RF ipratropium-albuterol 3 ML solution for nebulization 3 ml INHALATION Q6H.RT PRN (Reason: Sob &/Or Wheezing) Qty: 30 0RF furosemide 40 MG tablet 60 mg PO DAILY cilostazol 100 MG tablet 100 mg PO BID metoprolol succinate 200 MG tablet 100 mg PO DAILY albuterol sulfate [Ventolin HFA] 90 MCG HFA aerosol inhaler 2 puff inhalation Q4H PRN PRN (Reason: Sob &/Or Wheezing) etodolac 200 MG capsule 200 mg PO BID montelukast 10 MG tablet 10 mg PO DAILY Rx Instructions: mirtazapine 15 MG tablet,disintegrating 30 mg PO QHS magnesium oxide 400 MG capsule 400 mg PO DAILY Escitalopram Oxalate 20 MG tablet 20 mg PO QHS Trelegy Ellipta 100-62.5-25 mcg Blister With Device 1 inh INHALATION DAILY prednisone 20 MG tablet 60 mg PO DAILY Qty: 15 0RF hydrocodone-acetaminophen [hydrocodone-acetaminophen] 1 TABLET tablet 1 tab PO Q6H PRN PRN (Reason: Pain) 3 Days Qty: 12 0RF Eliquis 5 MG tablet 5 mg PO BID Qty: 74 0RF Rx Instructions: 10 mg twice a day for the first week. Then 5 mg twice a day. Primary Care Provider: Aaron Ruano Referrals: Luigi Parrish, DO [Non-Staff] - 3-5 Days if not improving Activity Restrictions/Additional Instructions: Follow-up with either Dr. Ruano or your primary care provider if not improving in 3 to 5 days. Disposition Disposition: Home, Self Care
[2022-01-26 22:51] LABS: Absolute Lymphocyte Count 1.99 X10^3/uL (0.83-4.51); Absolute Neutrophil Count 8.1 X10^3/uL (2.0-7.7); Basophil# 0.06 X10^3/uL; Basophil% 0.5 % (0-1); Eosinophil# 0.31 X10^3/uL; Eosinophils% 2.8 % (0-5); Hematocrit 28.4 % (37-47); Hemoglobin 8.6 g/dL (12.0-15.0); Lymphocyte # 1.99 X10^3/ul (0.83-4.51); Lymphocyte % 17.8 % (19-41); Mean Corp Hgb Conc 30.3 g/dL (32-36); Mean Corpuscular Hgb 29.8 pg (27.0-32.0); Mean Corpuscular Volume 98.3 fL (81-99); Mean Platelet Vol. 8.7 fl (6.2-12.0); Monocyte# 0.69 X10^3/uL; Monocyte% 6.2 % (0-10); NRBC Flagged by Analyzer 0 % (0-5); Neutrophil # 8.06 X10^3/uL (2.7-7.7); Neutrophil % 72.3 % (47-70); Platelet Count 234 K/mm3 (150-450); RBC Distribution Width CV 17.6 % (11.6-14.6); RBC Distribution Width SD 63.1 fl (35.1-43.9); Red Blood Count 2.89 M/mm3 (4.2-5.4); White Blood Count 11.2 K/mm3 (4.4-11.0)
[2022-01-26] MEDS: 0.9% Normal Saline 1,000 ML 1000 ML IV (22:59)
[2022-01-26 23:06] LABS: Bacteria 0 SEEN /hpf (None Seen); Mucous, Urine 0 SEEN /hpf (<or=2+); Red Blood Cells-Urine 0 SEEN /hpf (0-5)
[2022-01-26] MEDS: oxyCODONE 5 MG Tablet PO (23:07)
--- NOTE | 2022-01-26 23:10 | RAD_ITS ---
STUDY: X-RAY CHEST REASON FOR EXAM: Female, 71 years old. weakness TECHNIQUE: Single frontal view of the chest. COMPARISON: September 01, 2020 FINDINGS: Bipolar pacer on the left unchanged. New right IJ MediPort catheter terminates in the superior vena cava. No pneumothorax. The lungs are clear and expanded. Small right effusion is new. Normal size heart. Normal mediastinum and jimbo. Normal visualized pulmonary arteries. Normal visualized aortic arch and descending thoracic aorta. Normal visualized thoracic spine. Normal visualized ribs, clavicles, and shoulders. There is no demonstrated abnormality of the visualized soft tissue structures of the upper abdomen. RAD/Chest 1 View (Portable) IMPRESSION: New right IJ MediPort. No pneumothorax. New small right effusion. Electronically Signed: Constantine Kunz MD at 23:35 EST ,
[2022-01-26 23:15] LABS: Color, Urine Yellow (Yellow); Glucose, Dipstick Normal (Normal); Ketone-Dipstick Negative (Negative); Leukocyte Esterase-Dipstick 25 /ul (Negative); Nitrite-Dipstick Negative (Negative); Occult Blood-Urine Negative /ul (Negative); Protein-Dipstick Negative (Negative); Urine Bilirubin Dipstick Negative (Negative); Urine Clarity Clear (Clear); Urine Urobilinogen Normal (Normal)
[2022-01-26 23:22] LABS: ALB/GLOB Ratio 0.3 RATIO (0.9-2.4); AST(SGOT) 18 U/L (15-37); Alanine Aminotransfer ALT/SGPT 13 U/L (13-56); Albumin, Serum 1.8 g/dL (3.2-5.0); Alkaline Phosphatase 74 U/L (45-117); Anion Gap 4 (5-15); BUN 12 mg/dL (7-18); BUN/Creat Ratio 24.2 RATIO (10-20); Calcium,Total 8.5 mg/dL (8.5-10.1); Chloride 104 mmol/L (98-107); EST Glomerular Filtration Rate 130 mL/min (>60); Est Glom Filt Rate - Afr Amer 158 mL/min (>60); Estimated Creatinine Clearance 42.07 ml/min; Globulin 5.2 g/dL (2.2-4.2); Glucose 89 mg/dL (74-106); Potassium 3.7 mmol/L (3.5-5.1); Sodium Level 135 mmol/L (136-145)
[2022-01-26 23:28] LABS: Squamous Epithelial Cells - UA 0-5 SEEN /hpf (5-10); White Blood Cells 0-5 SEEN /hpf (0-5)
[2022-01-26] MEDS: Ondansetron 4 MG/2 ML Vial IV (23:50)
[2022-01-26] MEDS: Morphine 4 MG/ML Syringe IV (23:50)
[2022-01-27 01:27] VITALS: BP 128/63; PULSE 76; RESP 18; O2SAT 96
[2022-01-27 09:10] LABS: Prealbumin 10.5 mg/dL (20.0-40.0)
== END 2022-01-27 02:19 | disposition home or self-care (01) ==
PROVIDERS: Emergency Provider Emergency Medicine; PCP Family Medicine; Visit Provider Emergency Medicine
DX: R53.1 Weakness (principal); J44.9 Chronic obstructive pulmonary disease, unspecified; D64.9 Anemia, unspecified; R07.9 Chest pain, unspecified; Z87.891 Personal history of nicotine dependence; Z86.711 Personal history of pulmonary embolism; Z79.01 Long term (current) use of anticoagulants
CPT/HCPCS: 71045; 80053; 81001; 84134; 85025; 93005; 96361; 96374; 96375; 99285; J7030; P9612; A4216; J2405

== ENCOUNTER 2022-06-05 12:35 | Inpatient (IN) | payer MEDICARE, MEDICAID, SELFPAY ==
[2022-06-05] VITALS (9 sets, daily range): BP systolic 103–125; BP diastolic 55–74; PULSE 72–78; RESP 16–22; TEMP 36.4–36.9; O2SAT 92–99; BMI 21.6; BMI 23.2
--- NOTE | 2022-06-05 12:48 | EKG12_ITS ---
Test Reason : SOB Blood Pressure : / mmHG Vent. Rate : 076 BPM Atrial Rate : 076 BPM P-R Int : 106 ms QRS Dur : 136 ms QT Int : 426 ms P-R-T Axes : 096 249 088 degrees QTc Int : 479 ms Atrial-sensed ventricular-paced rhythm Abnormal ECG Confirmed by YARITZA QUIJANO ([id number]), editor continuity and script DYAN KAUR ([id number]) on 06/10/2022 7:43:42 AM Referred By: SRAVAN Confirmed By:YARITZA QUIJANO
--- NOTE | 2022-06-05 12:48 | RAD_ITS ---
STUDY: X-RAY CHEST REASON FOR EXAM: Female, 71 years old. cough/sob TECHNIQUE: PA and lateral views of the chest. COMPARISON: 01/26/2022 FINDINGS: Stable appearance of a right subclavian port, and left subclavian pacemaker. EKG leads overlie the chest Lungs are expanded with chronic interstitial changes in both lung soto and stable blunting of the right costophrenic angle. Overall, no significant interval change since the previous study. Normal size heart. Normal mediastinum and jimbo. Normal visualized pulmonary arteries. Normal visualized aortic arch and descending thoracic aorta. Normal visualized thoracic spine. Normal visualized ribs, clavicles, and shoulders. There is no demonstrated abnormality of the visualized soft tissue structures of the upper abdomen. RAD/Chest PA and Lateral IMPRESSION: No interval change Electronically Signed: Kamron Mejia MD at 14:12 EDT ,
--- NOTE | 2022-06-05 12:51 | EX.ED.DYSGE1 ---
HPI History of Present Illness Chief Complaint: Weakness Informant: patient and family (Daughter) Onset/Context/Timing Onset: Weeks (1) Context: Gradual Onset Timing: Continuous Quality: Weak Location: All over Current Severity: Severe Maximum Severity: Severe Narrative Narrative: Patient has stage IV non-small cell lung cancer that has been treated with chemotherapy for the past 2 years, her last treatment was about 2 weeks ago, she states she usually gets a white blood count booster as well, but this past week she skipped it because she was too weak to go and was not feeling well. She denies any fevers or chills but she has had an increased cough with sputum production that is white and nondiscolored, and without hemoptysis in the past week or so. Leg edema is chronic but worse lately. She does have orthopnea and dyspnea with exertion but has been so weak she has been having trouble getting around lately so daughter brings her in. She helps to care for her at home. She is on 3 L of oxygen chronically at home, she is taking it off very briefly and desatted into the low 80s, but putting her oxygen back on she has come back up at home. [facility] Medical History Acute encephalopathy Acute on chronic respiratory failure with hypoxia and hypercapnia Arthritis CHF (congestive heart failure) COPD (chronic obstructive pulmonary disease) Edema GERD (gastroesophageal reflux disease) HTN (hypertension) Hypothyroid Lung cancer Mastitis of right breast unrelated to of Presence of cardiac pacemaker Pulmonary embolism Home Medications gabapentin 300 mg capsule 600 mg PO BID nerve pain 12/23/15 [History Last Taken 11/14/17] levothyroxine 125 mcg tablet 200 mcg PO DAILY thyroid 12/23/15 [History Last Taken 11/14/17] omeprazole 20 mg capsule,delayed release 20 mg PO DAILY reflux 12/23/15 [History Last Taken 11/14/17] hydroxychloroquine 200 mg tablet 200 mg PO BID inflammation 10/16/16 [History Last Taken 11/14/17] albuterol sulfate 90 mcg/actuation aerosol inhaler 2 puff inhalation Q4H PRN PRN Dyspnea/Wheezing/Sob ##1 11/16/17 [Rx Last Taken Unknown] ipratropium 0.5 mg-albuterol 3 mg (2.5 mg base)/3 mL nebulization soln 3 ml inhalation Q6H.RT PRN Sob &/Or Wheezing ##30 11/16/17 [Rx Last Taken Unknown] albuterol sulfate 90 mcg/actuation aerosol inhaler (Ventolin HFA) 2 puff inhalation Q4H PRN PRN Sob &/Or Wheezing 02/25/18 [History Last Taken Unknown] cilostazol 100 mg tablet 100 mg PO BID peripheral vascular disease 02/25/18 [History Last Taken Unknown] furosemide 40 mg tablet 60 mg PO DAILY diuretic 02/25/18 [History Last Taken Unknown] metoprolol succinate 200 mg tablet,extended release 24 hr 100 mg PO DAILY blood pressure 02/25/18 [History Last Taken Unknown] Escitalopram Oxalate 20 mg PO QHS depression 12/06/19 [History Last Taken Unknown] etodolac 200 mg capsule 200 mg PO BID pain 12/06/19 [History Last Taken Unknown] magnesium oxide 400 mg PO DAILY supplement 12/06/19 [History Last Taken Unknown] mirtazapine 15 mg disintegrating tablet 30 mg PO QHS mental health 12/06/19 [History Last Taken Unknown] montelukast 10 mg tablet 10 mg PO DAILY allergies 12/06/19 [History Last Taken Unknown] fluticasone fur. 100 mcg-umeclid 62.5 mcg-vilant 25 mcg inhalat.powder (Trelegy Ellipta) 1 inh inhalation DAILY 09/01/20 [History Last Taken Unknown] prednisone 20 mg tablet 60 mg PO DAILY #15 TABLETS 09/01/20 [Rx Last Taken Unknown] apixaban 5 mg tablet (Eliquis) 5 mg PO BID #74 tabs 10/25/20 [Rx Last Taken Unknown] hydrocodone-acetaminophen 5-325mg 5mg-325mg 1 tab PO Q6H PRN PRN Pain 3 days #12 TABLETS 10/25/20 [Rx Last Taken Unknown] oxycodone 10 mg tablet 10 mg PO Q8H PRN pain 4 days #14 tabs 01/27/22 [Rx Last Taken Unknown] Allergy/AdvReac Type Severity Reaction Status Date / Time citalopram Allergy Other Verified 06/05/22 12:41 latex Allergy Rash Verified 06/05/22 12:41 methotrexate Allergy Other Verified 06/05/22 12:41 Sulfa (Sulfonamide Allergy Rash Verified 06/05/22 12:41 Antibiotics) bupropion AdvReac Hives Verified 06/05/22 12:41 Phenothiazines AdvReac Other Verified 06/05/22 12:41 procaine HCl [From Novocain] AdvReac Nausea/Vom/ Verified 06/05/22 12:41 Diarrhea Social History Smoking Status: Former smoker substance use type: does not use ROS ROS ED Constitutional Constitutional ED: Reports malaise and weakness; Denies body ache(s), chills or fever(s) Eyes Eyes: Denies change in vision or diplopia ENT ENT ED: Denies rhinorrhea or sore throat Cardiovascular Cardiovascular: Reports leg edema; Denies chest pain, palpitations or syncope Respiratory/Chest Respiratory/Chest: Reports cough, dyspnea and sputum; Denies hemoptysis Gastrointestinal Gastrointestinal: Denies abdominal pain, diarrhea, melena, nausea or vomiting Genitourinary Genitourinary ED: Denies dysuria or hematuria Musculoskeletal Musculoskeletal: Denies back pain or neck pain Integumentary Denies abscess or rash Neurologic Neurologic: Denies headache(s), paresthesias or weakness Psychiatric Psychiatric: Denies anxiety or suicidal thoughts EXAM Physical Exam Const Vital Signs: 06/05/22 12:36 06/05/22 12:39 06/05/22 12:54 Temperature 97.9 F Temperature Source Temporal Pulse Rate 74 Respiratory Rate 16 Respiratory Effort Normal Non-Labored Respiratory Pattern Normal Blood Pressure 113/60 Blood Pressure Mean 77 Pulse Ox 96 Oxygen Delivery Method Nasal Cannula Nasal Cannula Oxygen Flow Rate (L/min) 3 3 06/05/22 13:10 06/05/22 13:10 06/05/22 13:13 Temperature 97.9 F Temperature Source Oral Pulse Rate 77 73 Respiratory Rate 18 16 Respiratory Effort Respiratory Pattern Normal Blood Pressure 109/57 L Blood Pressure Mean 74 Pulse Ox 93 94 Oxygen Delivery Method Nasal Cannula Nasal Cannula Oxygen Flow Rate (L/min) 3 3 06/05/22 14:54 Temperature 97.5 F L Temperature Source Oral Pulse Rate 77 Respiratory Rate 17 Respiratory Effort Respiratory Pattern Blood Pressure 108/74 Blood Pressure Mean 85 Pulse Ox 98 Oxygen Delivery Method Venturi Mask Oxygen Flow Rate (L/min) 3 Positive well nourished and well developed Constitutional Narrative: Appears weak but in no distress General Appearance ED: well developed and NAD HEENT Reports moist mucous membranes normocephalic and atraumatic Eyes PERRL and EOMs intact bilaterally Neck full ROM and supple Resp Resp Narrative: Mild diffuse end expiratory wheezes, equal breath sounds bilaterally, diminished throughout symmetrically, no distress. Cardio regular rate, regular rhythm and no murmurs Rate: Negative for tachycardic GI non-tender and non-distended Auscultation: normoactive bowel sounds Palpation: soft Back/Spine no CVA tenderness General Back: other FROM Extremity normal to inspection General Extremety ED: Yes edema; Negative for pulses abnormal or tenderness General Extremity: edema bilateral lower extremity Details: moderate (Mostly feet and ankles); Negative for pulses abnormal Neuro oriented x3, CN's II-XII intact bilaterally and no sensory deficits noted Sensorium / Orientation: awake and alert Motor Exam: general weakness Psych mental status grossly normal Skin no rashes or lesions noted and no wounds MDM MDM MDM Narrative Medical decision making narrative: Septic work-up obtained given her immunocompromise state from chemotherapy. She is not neutropenic or leukopenic, her only cell line that is low as her hemoglobin, it was 8.6 and that is similar to what it had been several months ago according to our prior records. No sign of acute pneumonia on x-ray on my interpretation 2 views. Urinalysis does appear to be infected, that might be why she is feeling poorly she has had a history of urinary infections and states she does not get dysuria or urgency with them. She is ordered Rocephin IV along with some fluids, I discussed with her and daughter. Daughter states she is way too weak for her to take home and she is concerned she is not going to be able to get her into the house and thinks she should be admitted which I think is reasonable. Her troponin is also nonspecifically elevated in context of normal creatinine, she is not having symptoms of angina, her EKG is paced and unchanged without any acute injury pattern. She is not meeting any criteria for sepsis at this time, plan is medical surgical admission after discussing with hospitalist. History & Record Review Additional record(s) reviewed:: Prior labs Lab Data Attestation: I reviewed the patient's lab results. Labs: Laboratory Results - last 24 hr 06/05/22 06/05/22 06/05/22 12:45 12:45 12:45 WBC 8.3 RBC 2.83 L Hgb 8.6 L Hct 27.8 L MCV 98.2 MCH 30.4 MCHC 30.9 L RDW Std Deviation 77.0 H RDW Coeff of Alberto 22.3 H Plt Count 201 MPV 9.7 Immature Gran % (Auto) 0.600 Neut % (Auto) 66.5 Lymph % (Auto) 19.7 [place] % (Auto) 8.8 Eos % (Auto) 3.7 Baso % (Auto) 0.7 Absolute Neuts (auto) 5.5 Absolute Lymphs (auto) 1.63 Nucleated RBC % 0 Anisocytosis 1+ PT 21.4 H INR 1.9 APTT 40.9 H Sodium 136 Potassium 3.6 Chloride 103 Carbon Dioxide 28.0 Anion Gap 5 BUN 19 H Creatinine 0.70 Estim Creat Clear Calc 40.22 Est GFR (MDRD) Af Amer 106 Est GFR (MDRD) Non-Af 88 BUN/Creatinine Ratio 27.3 H Glucose 100 Lactic Acid Calcium 8.4 L Total Bilirubin 0.30 AST 55 H ALT 18 Alkaline Phosphatase 116 Troponin I High Sens 72 H B-Natriuretic Peptide Total Protein 6.6 Albumin 2.3 L Globulin 4.3 H Albumin/Globulin Ratio 0.5 L Urine Color Urine Clarity Urine pH Ur Specific [place] Urine Protein Urine Glucose (UA) Urine Ketones Urine Occult Blood Urine Nitrite Urine Bilirubin Urine Urobilinogen Ur Leukocyte Esterase Urine RBC Urine WBC Ur Squamous Epith Cells Urine Bacteria Urine Mucus 06/05/22 06/05/22 06/05/22 12:45 13:00 13:38 WBC RBC Hgb Hct MCV MCH MCHC RDW Std Deviation RDW Coeff of Alberto Plt Count MPV Immature Gran % (Auto) Neut % (Auto) Lymph % (Auto) [place] % (Auto) Eos % (Auto) Baso % (Auto) Absolute Neuts (auto) Absolute Lymphs (auto) Nucleated RBC % Anisocytosis PT INR APTT Sodium Potassium Chloride Carbon Dioxide Anion Gap BUN Creatinine Estim Creat Clear Calc Est GFR (MDRD) Af Amer Est GFR (MDRD) Non-Af BUN/Creatinine Ratio Glucose Lactic Acid 1.1 Calcium Total Bilirubin AST ALT Alkaline Phosphatase Troponin I High Sens B-Natriuretic Peptide 500.2 H Total Protein Albumin Globulin Albumin/Globulin Ratio Urine Color Yellow Urine Clarity Cloudy Urine pH 5.0 Ur Specific [place] 1.020 Urine Protein 30 H Urine Glucose (UA) Normal Urine Ketones Negative Urine Occult Blood 10 H Urine Nitrite Negative Urine Bilirubin 1 H Urine Urobilinogen 1 H Ur Leukocyte Esterase 500 H Urine RBC 0 SEEN Urine WBC 25-50 SEEN Ur Squamous Epith Cells 0-5 SEEN Urine Bacteria 3+ Urine Mucus 0 SEEN Radiography Chest X-Ray - ED: 2 View, Read by ED Physician, Chronic Changes and No Infiltrates Diagnostic Testing: Clinical Impression(s) from Imaging Studies Chest X-Ray 06/05/22 12:48 IMPRESSION: No interval change Electronically Signed: Kamron Mejia MD at 14:12 EDT Reading Location ID and State: [address] [place] [address] , Service support , Rhythm Strip Rhythm Strip: Paced Rate: 75 Ectopy: None EKG Initial EKG: Attestation: I personally reviewed and interpreted this EKG as follows: Interpretation: No Acute Injury Pattern and Paced Prior EKG tracings: available for review Prior: Unchanged Management Discussion w/another healthcare provider: Hospitalist Discharge Plan Dx/Rx/DC Orders Clinical Impression: Urinary tract infection, Immunocompromised state due to drug therapy, Generalized weakness, Non-small cell lung cancer with metastasis, Anticoagulated, Elevated troponin Disposition Disposition: Acute Care Hospital [facility]
[2022-06-05] MEDS: Ipratropium/Albuterol Sulfate 3 ML AMPUL.NEB INHALATION ×2 (13:05→19:04)
[2022-06-05 13:10] LABS: Absolute Lymphocyte Count 1.63 X10^3/uL (0.83-4.51); Absolute Neutrophil Count 5.5 X10^3/uL (2.0-7.7); Basophil# 0.06 X10^3/uL; Basophil% 0.7 % (0-1); Eosinophil# 0.31 X10^3/uL; Eosinophils% 3.7 % (0-5); Hematocrit 27.8 % (37-47); Hemoglobin 8.6 g/dL (12.0-15.0); Lymphocyte # 1.63 X10^3/ul (0.83-4.51); Lymphocyte % 19.7 % (19-41); Mean Corp Hgb Conc 30.9 g/dL (32-36); Mean Corpuscular Hgb 30.4 pg (27.0-32.0); Mean Corpuscular Volume 98.2 fL (81-99); Mean Platelet Vol. 9.7 fl (6.2-12.0); Monocyte# 0.73 X10^3/uL; Monocyte% 8.8 % (0-10); NRBC Flagged by Analyzer 0 % (0-5); Neutrophil # 5.51 X10^3/uL (2.7-7.7); Neutrophil % 66.5 % (47-70); POSITIVE MORPHOLOGY YES; Platelet Count 201 K/mm3 (150-450); RBC Distribution Width CV 22.3 % (11.6-14.6); Red Blood Count 2.83 M/mm3 (4.2-5.4); White Blood Count 8.3 K/mm3 (4.4-11.0)
[2022-06-05 13:13] LABS: Differential Indicated SCAN CRITERIA MET
[2022-06-05 13:22] LABS: International Normalized Ratio 1.9; Prothrombin Time (Protime)PT. 21.4 SECONDS (11.7-14.9)
[2022-06-05 13:23] LABS: Partial Thromboplast Time 40.9 Seconds (24.1-36.2)
[2022-06-05 13:29] LABS: ALB/GLOB Ratio 0.5 RATIO (0.9-2.4); AST(SGOT) 55 U/L (15-37); Alanine Aminotransfer ALT/SGPT 18 U/L (13-56); Albumin, Serum 2.3 g/dL (3.2-5.0); Alkaline Phosphatase 116 U/L (45-117); Anion Gap 5 (5-15); BUN 19 mg/dL (7-18); BUN/Creat Ratio 27.3 RATIO (10-20); Calcium,Total 8.4 mg/dL (8.5-10.1); Chloride 103 mmol/L (98-107); EST Glomerular Filtration Rate 88 mL/min (>60); Est Glom Filt Rate - Afr Amer 106 mL/min (>60); Estimated Creatinine Clearance 40.22 ml/min; Globulin 4.3 g/dL (2.2-4.2); Glucose 100 mg/dL (74-106); Potassium 3.6 mmol/L (3.5-5.1); Protein, Total 6.6 g/dL (6.4-8.2); Sodium Level 136 mmol/L (136-145); Troponin-I HS 72 pg/mL (3.0-54.0)
[2022-06-05 13:30] LABS: BNP,B-Type NATRIURETIC PEPTIDE 500.2 pg/mL (0-100)
[2022-06-05 13:32] LABS: Anisocytosis 1+
[2022-06-05 13:35] LABS: Lactic Acid 1.1 mmol/L (0.4-1.9)
[2022-06-05 13:43] LABS: Mucous, Urine 0 SEEN /hpf (<or=2+); Red Blood Cells-Urine 0 SEEN /hpf (0-5)
[2022-06-05 13:48] LABS: Color, Urine Yellow (Yellow); Glucose, Dipstick Normal (Normal); Ketone-Dipstick Negative (Negative); Leukocyte Esterase-Dipstick 500 /ul (Negative); Nitrite-Dipstick Negative (Negative); Occult Blood-Urine 10 /ul (Negative); Protein-Dipstick 30 mg/dl (Negative); Urine Clarity Cloudy (Clear); Urine Urobilinogen 1 mg/dl (Normal)
[2022-06-05 13:59] LABS: Urine Bilirubin Dipstick 1 mg/dL (Negative)
[2022-06-05 14:03] LABS: White Blood Cells 25-50 SEEN /hpf (0-5)
[2022-06-05 14:04] LABS: Bacteria 3+ /hpf (None Seen); Squamous Epithelial Cells - UA 0-5 SEEN /hpf (5-10)
[2022-06-05] MEDS: Ceftriaxone 1 GM/50 ML BAG IV (15:41)
[2022-06-05] MEDS: oxyCODONE 5 MG Tablet PO (15:47)
--- NOTE | 2022-06-05 17:06 | CT_ITS ---
STUDY: CT BRAIN WITHOUT AND WITH CONTRAST REASON FOR EXAM: Female, 71 years old. change in mental status -- encephalopathy Individualized dose optimization techniques were used for this CT. TECHNIQUE: Transaxial CT imaging of the brain was performed without and with IV 50mL Isovue-370 administration of intravenous contrast material. COMPARISON: 01.23.15 FINDINGS: There are calcifications around the carotid artery. These are noted in the cavernous carotid arteries. Normal calvarium. Normal soft tissues. There is mild cerebral atrophy with widening of the extra-axial spaces and ventricular dilatation. There are areas of decreased attenuation within the white matter tracts of the supratentorial brain, consistent with microvascular disease changes. Normal basal ganglia and thalami. Normal brainstem. There is mild cerebellar atrophy. There is no intracranial hemorrhage. There are no findings of an acute ischemic infarction. Normal visualized paranasal sinuses. ASPECTS Score for Acute Strokes: 10/ CT/Brain/Head W/WO Contrast IMPRESSION: There are no acute findings. Chronic involutional changes of the brain. Electronically Signed: Mathew Alfonso MD at 17:56 EDT ,
--- NOTE | 2022-06-05 17:15 | ECHOD_ITS ---
Reason For Study: CHF Procedure This was a 2D Doppler, Color Flow transthoracic echocardiogram. The study was technically difficult. Exam performed portable in patient room. Left Ventricle Normal left ventricle. The estimated ejection fraction is 55-60 %. Right Ventricle Normal right ventricle. Normal systolic function. Atria The left atrium is moderately enlarged. Normal right atrium. Mitral Valve The mitral valve is structurally normal. No prolapse or stenosis seen. Mild (1+) mitral valve insufficiency. Tricuspid Valve Normal tricuspid valve. Mild tricuspid valve insufficiency. Aortic Valve The aortic valve is not well visualized. Pulmonic Valve The pulmonic valve is not well visualized. Great Vessels Normal aortic root. Pericardium/Pleural No pericardial effusion. MMode/2D Measurements & Calculations LVIDd: 4.7 cm IVSd: 0.94 cm LA dimension: 5.1 cm LVIDs: 3.4 cm LVPWd: 0.90 cm RVDd: 4.6 cm FS: 28.4 % LAV(MOD-sp4): 59.5 ml LA A4 area: 19.0 cm2 Time Measurements MV dec time: 0.24 sec Doppler Measurements & Calculations MV E max eris: 66.8 cm/sec Lat Peak E' Eris: 10.2 cm/sec Med Peak E' Eris: 6.6 cm/sec MV A max eris: 78.5 cm/sec E/E' lat: 6.6 E/E' med: 10.1 MV E/A: 0.85 MV V2 max: 128.1 cm/sec MV P1/2t max eris: 104.1 cm/sec Ao V2 max: 170.4 cm/sec MV max P.6 mmHg MV P1/2t: 92.8 msec Ao max P.6 mmHg MV V2 mean: 66.1 cm/sec MV dec slope: 328.6 cm/sec2 MV mean P.1 mmHg MVA(P1/2t): 2.4 cm2 MV V2 VTI: 31.2 cm LV V1 max: 160.8 cm/sec PA V2 max: 126.4 cm/sec TR max eris: 389.3 cm/sec LV V1 max P.4 mmHg TR max P.6 mmHg ECHO/Echo Complete Interpretation Summary The estimated ejection fraction is 55-60 %. Pcemaker lead / or ICDnoted on R.side Pulmonary srtery sytolic [id number] mmhg No change from previous study Ordering Physician: Donna Andres Referring Physician: Luigi Parrish Performed By: Clark Westfall RCS
--- NOTE | 2022-06-05 17:18 | PCM.HP.STD ---
HPI - General General Date of Admission: 06/05/22 Date of Service: 06/05/22 Chief Complaint: Change in mental status HPI Narrative GAVINO SCOTT, is a 71 F with a history of COPD, rheumatoid arthritis on Humira and stage IV non-small cell lung cancer with metastasis to the brain status post gamma knife surgery and currently undergoing chemotherapy (Gemzar). Last chemotherapy was 2 weeks ago. Brought to the hospital by the patient's daughter for change in mental status and progressive weakness over the last several days. Patient has been largely stuporous. No fever was reported and no urinary irritative symptoms were reported either. There is no shortness of breath or chest pain. Oral intake has been poor as well. [facility] Medical History Acute encephalopathy Acute on chronic respiratory failure with hypoxia and hypercapnia Arthritis CHF (congestive heart failure) COPD (chronic obstructive pulmonary disease) Edema GERD (gastroesophageal reflux disease) HTN (hypertension) Hypothyroid Lung cancer Mastitis of right breast unrelated to of Presence of cardiac pacemaker Pulmonary embolism Home Medications gabapentin 300 mg capsule 600 mg PO BID nerve pain 12/23/15 [History Last Taken 11/14/17] levothyroxine 125 mcg tablet 200 mcg PO DAILY thyroid 12/23/15 [History Last Taken 11/14/17] omeprazole 20 mg capsule,delayed release 20 mg PO DAILY reflux 12/23/15 [History Last Taken 11/14/17] hydroxychloroquine 200 mg tablet 200 mg PO BID inflammation 10/16/16 [History Last Taken 11/14/17] albuterol sulfate 90 mcg/actuation aerosol inhaler 2 puff inhalation Q4H PRN PRN Dyspnea/Wheezing/Sob ##1 11/16/17 [Rx Last Taken Unknown] ipratropium 0.5 mg-albuterol 3 mg (2.5 mg base)/3 mL nebulization soln 3 ml inhalation Q6H.RT PRN Sob &/Or Wheezing ##30 11/16/17 [Rx Last Taken Unknown] albuterol sulfate 90 mcg/actuation aerosol inhaler (Ventolin HFA) 2 puff inhalation Q4H PRN PRN Sob &/Or Wheezing 02/25/18 [History Last Taken Unknown] cilostazol 100 mg tablet 100 mg PO BID peripheral vascular disease 02/25/18 [History Last Taken Unknown] furosemide 40 mg tablet 60 mg PO DAILY diuretic 02/25/18 [History Last Taken Unknown] metoprolol succinate 200 mg tablet,extended release 24 hr 100 mg PO DAILY blood pressure 02/25/18 [History Last Taken Unknown] Escitalopram Oxalate 20 mg PO QHS depression 12/06/19 [History Last Taken Unknown] etodolac 200 mg capsule 200 mg PO BID pain 12/06/19 [History Last Taken Unknown] magnesium oxide 400 mg PO DAILY supplement 12/06/19 [History Last Taken Unknown] mirtazapine 15 mg disintegrating tablet 30 mg PO QHS mental health 12/06/19 [History Last Taken Unknown] montelukast 10 mg tablet 10 mg PO DAILY allergies 12/06/19 [History Last Taken Unknown] fluticasone fur. 100 mcg-umeclid 62.5 mcg-vilant 25 mcg inhalat.powder (Trelegy Ellipta) 1 inh inhalation DAILY 09/01/20 [History Last Taken Unknown] prednisone 20 mg tablet 60 mg PO DAILY #15 TABLETS 09/01/20 [Rx Last Taken Unknown] apixaban 5 mg tablet (Eliquis) 5 mg PO BID #74 tabs 10/25/20 [Rx Last Taken Unknown] hydrocodone-acetaminophen 5-325mg 5mg-325mg 1 tab PO Q6H PRN PRN Pain 3 days #12 TABLETS 10/25/20 [Rx Last Taken Unknown] oxycodone 10 mg tablet 10 mg PO Q8H PRN pain 4 days #14 tabs 01/27/22 [Rx Last Taken Unknown] Allergy/AdvReac Type Severity Reaction Status Date / Time citalopram Allergy Other Verified 06/05/22 12:41 latex Allergy Rash Verified 06/05/22 12:41 methotrexate Allergy Other Verified 06/05/22 12:41 Sulfa (Sulfonamide Allergy Rash Verified 06/05/22 12:41 Antibiotics) bupropion AdvReac Hives Verified 06/05/22 12:41 Phenothiazines AdvReac Other Verified 06/05/22 12:41 procaine HCl [From Novocain] AdvReac Nausea/Vom/ Verified 06/05/22 12:41 Diarrhea Social History Smoking Status: Former smoker substance use type: does not use ROS ROS Narrative Unable to obtain history from the patient due to severely altered mental status. Limited review of system obtained from the patient daughter at the bedside. No shortness of breath, fever or chills or chest pain reported. Vital Signs Vital Signs Vital Signs: 06/05/22 12:36 06/05/22 12:39 06/05/22 12:54 Temperature 36.6 C Temperature Source Temporal Pulse Rate 74 Respiratory Rate 16 Respiratory Effort Normal Non-Labored Respiratory Pattern Normal Blood Pressure 113/60 Blood Pressure Mean 77 Pulse Ox 96 Oxygen Delivery Method Nasal Cannula Nasal Cannula Oxygen Flow Rate (L/min) 3 3 06/05/22 13:10 06/05/22 13:10 06/05/22 13:13 Temperature 36.6 C Temperature Source Oral Pulse Rate 77 73 Respiratory Rate 18 16 Respiratory Effort Respiratory Pattern Normal Blood Pressure 109/57 L Blood Pressure Mean 74 Pulse Ox 93 94 Oxygen Delivery Method Nasal Cannula Nasal Cannula Oxygen Flow Rate (L/min) 3 3 06/05/22 14:54 06/05/22 15:50 06/05/22 16:50 Temperature 36.4 C L 36.9 C 36.4 C L Temperature Source Oral Oral Temporal Pulse Rate 77 73 77 Respiratory Rate 17 16 16 Respiratory Effort Respiratory Pattern Blood Pressure 108/74 125/66 H 105/67 Blood Pressure Mean 85 85 79 Pulse Ox 98 99 99 Oxygen Delivery Method Venturi Mask Nasal Cannula Nasal Cannula Oxygen Flow Rate (L/min) 3 3 3 Weight Weight: 53.7 kg Body Mass Index (BMI) 21.6 Physical Exam Narrative General exam. Elderly woman, acutely ill-appearing, chronically ill-appearing, not in any overt respiratory distress, obtunded and stuporous but maintaining and protecting airway. HEENT. Oral mucosa dry, mild conjunctival pallor no jaundice. Neck. There is no jugular venous distention. Lungs. Diminished breath sounds bilaterally. No wheezing. Heart. First and second heart sounds heard. Distant. Abdomen. Full, nontender no organomegaly and no palpable masses. Extremities. 2+ pitting edema in both lower extremities up to the knees. [employer]. Obtunded and stuporous. Able to awaken by verbal stimuli. Moving all extremities. Speech is fluent. All other organ systems examined and essentially negative. Results Medical Records Data Attestation: I reviewed the patient's medical records Lab / Micro Data Attestation: I reviewed the patient's lab results. Result Diagrams: 06/05/22 12:45 06/05/22 12:45 Labs: Laboratory Results - last 24 hr 06/05/22 12:45: WBC 8.3, RBC 2.83 L, Hgb 8.6 L, Hct 27.8 L, MCV 98.2, MCH 30.4, MCHC 30.9 L, RDW Std Deviation 77.0 H, RDW Coeff of Alberto 22.3 H, Plt Count 201, MPV 9.7, Immature Gran % (Auto) 0.600, Neut % (Auto) 66.5, Lymph % (Auto) 19.7, [place] % (Auto) 8.8, Eos % (Auto) 3.7, Baso % (Auto) 0.7, Absolute Neuts (auto) 5.5, Absolute Lymphs (auto) 1.63, Nucleated RBC % 0, Anisocytosis 1+ 06/05/22 12:45: PT 21.4 H, INR 1.9, APTT 40.9 H 06/05/22 12:45: Sodium 136, Potassium 3.6, Chloride 103, Carbon Dioxide 28.0, Anion Gap 5, BUN 19 H, Creatinine 0.70, Estim Creat Clear Calc 40.22, Est GFR (MDRD) Af Amer 106, Est GFR (MDRD) Non-Af 88, BUN/Creatinine Ratio 27.3 H, Glucose 100, Calcium 8.4 L, Total Bilirubin 0.30, AST 55 H, ALT 18, Alkaline Phosphatase 116, Troponin I High Sens 72 H, Total Protein 6.6, Albumin 2.3 L, Globulin 4.3 H, Albumin/Globulin Ratio 0.5 L 06/05/22 12:45: B-Natriuretic Peptide 500.2 H 06/05/22 13:00: Lactic Acid 1.1 06/05/22 13:38: Urine Color Yellow, Urine Clarity Cloudy, Urine pH 5.0, Ur Specific [place] 1.020, Urine Protein 30 H, Urine Glucose (UA) Normal, Urine Ketones Negative, Urine Occult Blood 10 H, Urine Nitrite Negative, Urine Bilirubin 1 H, Urine Urobilinogen 1 H, Ur Leukocyte Esterase 500 H, Urine RBC 0 SEEN, Urine WBC 25-50 SEEN, Ur Squamous Epith Cells 0-5 SEEN, Urine Bacteria 3+, Urine Mucus 0 SEEN ABG Data Attestation: I personally reviewed and interpreted this ABG as follows: Interpretation: PCO2 within normal range. pH is well within normal range. Rhythm Strip Rhythm Strip: Paced Rate: 75 Ectopy: None Radiology Impression Chest X-Ray 06/05/22 12:48 IMPRESSION: No interval change Electronically Signed: Kamron Mejia MD at 14:12 EDT , Assessment & Plan Assessment/Plan (1) Acute encephalopathy: PLAN: Plan Assessment and plan 1. Acute encephalopathy. Unclear etiology. Possibly secondary to urinary tract infection. We will need to look for any other potential metabolic causes so we will check ammonia levels as well. ABGs were done and not suggestive of hypercapnia as a cause. Brain CT with contrast to rule out possible recurrence of brain metastasis as a cause of her altered mental status. Unable to do MRI as patient has a pacemaker/defibrillator. We will presume infectious etiology and will start on IV antibiotics. Follow-up on blood cultures as well. Patient immunocompromised from metastatic lung cancer, chemotherapy for the same as well as being on biologics (Humira) for rheumatoid arthritis. 2. Abnormal urinalysis. Possible urinary tract infection. We will follow-up on urine cultures. Start IV antibiotics with IV Zosyn to cover nosocomials 3. Stage IV lung cancer. Patient on chemotherapy. 4. Rheumatoid arthritis. Patient on Humira. Immunocompromise state as above. 5. Anemia. Most likely secondary to bone marrow suppression from chemotherapy and from metastatic cancer as well. Patient gets erythropoietin injections as an outpatient. Hemoglobin 8.6 with stable. Transfuse for hemoglobin less than 7. Charges/Coding Visit Charges Inpatient E&M: 31239 Init Hosp L3
[2022-06-05] MEDS: Furosemide 20 MG/2 ML VIAL IV (18:22)
[2022-06-05] MEDS: Budesonide Respules 0.5 MG/2 ML AMPUL.NEB. INHALATION (19:04)
[2022-06-05] MEDS: Escitalopram Oxalate 20 MG Tablet PO (22:19)
[2022-06-05] MEDS: Mirtazapine 30 MG Tablet PO (22:19)
[2022-06-05] MEDS: Cilostazol 50 MG Tablet 100 MG PO (22:19)
[2022-06-05] MEDS: APIXABAN 5 MG TABLET PO (22:19)
[2022-06-05] MEDS: Montelukast 10 MG Tablet PO (22:19)
[2022-06-05] MEDS: HYDROcodone Bitartrate/Apap 5/325 Tablet PO (22:19)
[2022-06-05] MEDS: Menthol/Lanolin/Calamine/Znox 113 GM Tube 1 APPLIC TOPICAL (23:31)
[2022-06-06] VITALS (12 sets, daily range): BP systolic 92–117; BP diastolic 50–60; PULSE 73–84; RESP 16–20; TEMP 36.3–36.7; O2SAT 91–98; BMI 23.4
[2022-06-06 05:10] LABS: Absolute Lymphocyte Count 1.53 X10^3/uL (0.83-4.51); Absolute Neutrophil Count 3.3 X10^3/uL (2.0-7.7); Basophil# 0.04 X10^3/uL; Basophil% 0.7 % (0-1); Eosinophil# 0.41 X10^3/uL; Eosinophils% 7.2 % (0-5); Hematocrit 27.5 % (37-47); Hemoglobin 8.3 g/dL (12.0-15.0); Lymphocyte # 1.53 X10^3/ul (0.83-4.51); Lymphocyte % 26.8 % (19-41); Mean Corp Hgb Conc 30.2 g/dL (32-36); Mean Corpuscular Hgb 30.4 pg (27.0-32.0); Mean Corpuscular Volume 100.7 fL (81-99); Mean Platelet Vol. 9.7 fl (6.2-12.0); Monocyte# 0.43 X10^3/uL; Monocyte% 7.5 % (0-10); NRBC Flagged by Analyzer 0 % (0-5); Neutrophil # 3.27 X10^3/uL (2.7-7.7); Neutrophil % 57.4 % (47-70); POSITIVE MORPHOLOGY YES; Platelet Count 172 K/mm3 (150-450); RBC Distribution Width CV 22.9 % (11.6-14.6); RBC Distribution Width SD 82.5 fl (35.1-43.9); Red Blood Count 2.73 M/mm3 (4.2-5.4); White Blood Count 5.7 K/mm3 (4.4-11.0)
[2022-06-06] MEDS: Menthol/Lanolin/Calamine/Znox 113 GM Tube 1 APPLIC TOPICAL ×3 (05:35→22:21)
[2022-06-06] MEDS: Levothyroxine 100 MCG Tablet 200 MCG PO (05:35)
[2022-06-06] MEDS: HYDROcodone Bitartrate/Apap 5/325 Tablet PO ×3 (05:41→18:12)
[2022-06-06 05:53] LABS: International Normalized Ratio 1.9; Prothrombin Time (Protime)PT. 21.2 SECONDS (11.7-14.9)
[2022-06-06 05:56] LABS: Differential Indicated SCAN CRITERIA MET
[2022-06-06 06:29] LABS: ALB/GLOB Ratio 0.5 RATIO (0.9-2.4); AST(SGOT) 41 U/L (15-37); Alanine Aminotransfer ALT/SGPT 16 U/L (13-56); Alkaline Phosphatase 99 U/L (45-117); Anion Gap 3 (5-15); BUN 14 mg/dL (7-18); BUN/Creat Ratio 25.3 RATIO (10-20); Chloride 106 mmol/L (98-107); Creatinine, Serum 0.55 mg/dL (0.55-1.02); EST Glomerular Filtration Rate 114 mL/min (>60); Est Glom Filt Rate - Afr Amer 138 mL/min (>60); Estimated Creatinine Clearance 40.22 ml/min; Globulin 3.7 g/dL (2.2-4.2); Glucose 91 mg/dL (74-106); Magnesium 1.5 mg/dL (1.6-2.6); Phosphorus 3.6 mg/dL (2.5-4.9); Potassium 3.5 mmol/L (3.5-5.1); Protein, Total 5.7 g/dL (6.4-8.2); Sodium Level 134 mmol/L (136-145)
[2022-06-06] MEDS: Budesonide Respules 0.5 MG/2 ML AMPUL.NEB. INHALATION ×2 (06:38→20:21)
[2022-06-06] MEDS: Ipratropium/Albuterol Sulfate 3 ML AMPUL.NEB INHALATION ×3 (06:38→20:21)
[2022-06-06 07:11] LABS: Anisocytosis 2+
[2022-06-06] MEDS: Metoprolol(XL)Succ 100 MG Tablet PO (10:47)
[2022-06-06] MEDS: Furosemide 20 MG/2 ML VIAL IV ×2 (10:47→17:57)
[2022-06-06] MEDS: APIXABAN 5 MG TABLET PO ×2 (10:47→22:22)
[2022-06-06] MEDS: Cilostazol 50 MG Tablet 100 MG PO ×2 (10:49→22:23)
--- NOTE | 2022-06-06 11:07 | PCM.PN.HOSP ---
Subjective Subjective Doing well, no issues overnight. More alert today and less confused than she was at home Objective Data Objective Data Vital Signs: Vital Signs Temp Pulse Resp BP Pulse Ox O2 Del Method O2 Flow Rate 97.6 F L 82 18 101/52 L 91 Nasal Cannula 3 06/06/22 08:57 06/06/22 10:47 06/06/22 08:57 06/06/22 10:47 06/06/22 08:57 06/06/22 09:05 06/06/22 09:05 Oxygen Flow Rate (L/min) 3 Oxygen Delivery Method Nasal Cannula Weight: 128 lb 1.417 oz Body Mass Index (BMI) 23.4 Intake & Output: Intake and Output for Last 24 Hours 06/05/22 06/06/22 06/07/22 03:59 03:59 03:59 Intake Total 220 / 220 120 / 120 Output Total 400 / 400 625 / 625 Balance -180 / -180 -505 / -505 Medical Nutrition Assessment Dietitian: Malnutrition Criteria Met Start: 06/06/22 10:57 Freq: Status: Active Protocol: Document 06/06/22 10:57 (Rec: 06/06/22 10:57 [id number]) Nutrition Malnutrition Evidence of Malnutrition Exists Yes Malnutrition (severe): Chronic Evidenced By Suboptimal Energy Intake ( Severe),Weight Loss (Severe) Clinical Problem Chronic Disease or Condition Related Malnutrition Etiology severe related to 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 RD will order EPHP BID with breakfast and dinner with Aníbal mixed in to provide supplemental energy and promote wound healing. Lab / Micro Data Result Diagrams: 06/06/22 04:14 06/06/22 04:14 Labs: Laboratory Results - last 24 hr 06/05/22 12:45: WBC 8.3, RBC 2.83 L, Hgb 8.6 L, Hct 27.8 L, MCV 98.2, MCH 30.4, MCHC 30.9 L, RDW Std Deviation 77.0 H, RDW Coeff of Alberto 22.3 H, Plt Count 201, MPV 9.7, Immature Gran % (Auto) 0.600, Neut % (Auto) 66.5, Lymph % (Auto) 19.7, [place] % (Auto) 8.8, Eos % (Auto) 3.7, Baso % (Auto) 0.7, Absolute Neuts (auto) 5.5, Absolute Lymphs (auto) 1.63, Nucleated RBC % 0, Anisocytosis 1+ 06/05/22 12:45: PT 21.4 H, INR 1.9, APTT 40.9 H 06/05/22 12:45: Sodium 136, Potassium 3.6, Chloride 103, Carbon Dioxide 28.0, Anion Gap 5, BUN 19 H, Creatinine 0.70, Estim Creat Clear Calc 40.22, Est GFR (MDRD) Af Amer 106, Est GFR (MDRD) Non-Af 88, BUN/Creatinine Ratio 27.3 H, Glucose 100, Calcium 8.4 L, Total Bilirubin 0.30, AST 55 H, ALT 18, Alkaline Phosphatase 116, Troponin I High Sens 72 H, Total Protein 6.6, Albumin 2.3 L, Globulin 4.3 H, Albumin/Globulin Ratio 0.5 L 06/05/22 12:45: B-Natriuretic Peptide 500.2 H 06/05/22 13:00: Lactic Acid 1.1 06/05/22 13:38: Urine Color Yellow, Urine Clarity Cloudy, Urine pH 5.0, Ur Specific [place] 1.020, Urine Protein 30 H, Urine Glucose (UA) Normal, Urine Ketones Negative, Urine Occult Blood 10 H, Urine Nitrite Negative, Urine Bilirubin 1 H, Urine Urobilinogen 1 H, Ur Leukocyte Esterase 500 H, Urine RBC 0 SEEN, Urine WBC 25-50 SEEN, Ur Squamous Epith Cells 0-5 SEEN, Urine Bacteria 3+, Urine Mucus 0 SEEN 06/05/22 19:05: Ammonia 19.0 06/06/22 04:14: WBC 5.7, RBC 2.73 L, Hgb 8.3 L, Hct 27.5 L, MCV 100.7 H, MCH 30.4, MCHC 30.2 L, RDW Std Deviation 82.5 H, RDW Coeff of Alberto 22.9 H, Plt Count 172, MPV 9.7, Immature Gran % (Auto) 0.400, Neut % (Auto) 57.4, Lymph % (Auto) 26.8, [place] % (Auto) 7.5, Eos % (Auto) 7.2 H, Baso % (Auto) 0.7, Absolute Neuts (auto) 3.3, Absolute Lymphs (auto) 1.53, Nucleated RBC % 0, Anisocytosis 2+ 06/06/22 04:14: PT 21.2 H, INR 1.9 06/06/22 04:14: Sodium 134 L, Potassium 3.5, Chloride 106, Carbon Dioxide 25.0, Anion Gap 3 L, BUN 14, Creatinine 0.55, Estim Creat Clear Calc 40.22, Est GFR (MDRD) Af Amer 138, Est GFR (MDRD) Non-Af 114, BUN/Creatinine Ratio 25.3 H, Glucose 91, Calcium 8.0 L, Phosphorus 3.6, Magnesium 1.5 L, Total Bilirubin 0.20, AST 41 H, ALT 16, Alkaline Phosphatase 99, Total Protein 5.7 L, Albumin 2.0 L, Globulin 3.7, Albumin/Globulin Ratio 0.5 L Radiography Diagnostic Testing: Radiology Impression Chest X-Ray 06/05/22 12:48 IMPRESSION: No interval change Electronically Signed: Kamron Mejia MD at 14:12 EDT , Brain CT 06/05/22 17:06 IMPRESSION: There are no acute findings. Chronic involutional changes of the brain. Electronically Signed: Mathew Alfonso MD at 17:56 EDT , Rhythm Strip Rhythm Strip: Paced Rate: 75 Ectopy: None Physical Exam Narrative General: Alert, Oriented x3, Cooperative, No apparent distress HEENT: Atraumatic, PERRLA, EOMI, Normocephalic Oral: Moist Mucosa Neck: Supple, No JVD Lungs: Diminished, Normal air movement, No rhonchi, No wheeze, No rales Cardiovascular: Regular rate, Regular Rhythm, Normal S1, Normal S2, No murmurs Abdomen: Soft, Non Tender, Non-Distended, No Hepato-splenomegaly Extremities: Edema, Capillary Refill Less than 3 Seconds Skin: No rashes, No breakdown Musculoskeletal: No Tenderness to Palpation of Joints or Extremities Neurological: Motor Exam 5/5 strength throughout, Sensory exam intact to light touch and pain Psych/Mental Status: Normal Affect, Appropriate Assessment & Plan Assessment/Plan (1) Acute encephalopathy: PLAN: Plan 1. Acute encephalopathy likely secondary to UTI ? UA is consistent with a UTI ? Continue with antibiotics pending urine culture ? Mental status has improved and it does appear that the encephalopathy has resolved at this time ? Other causes for encephalopathy have been ruled out, she does have a history of metastatic lung cancer to her brain but this is been treated with gamma knife and she is currently on chemotherapy. Unfortunate she cannot have an MRI secondary to a pacemaker 2. 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 Non-small cell cancer ? On chemotherapy as an outpatient ? Likely due to marrow suppression from chemotherapy as well as her cancer, she does not get erythropoietin injections as an outpatient is stable 3. Rheumatoid arthritis ? Stable ? Patient on Humira. Immunocompromise state as above. 4. Chronic diastolic CHF/peripheral vascular disease/HTN/HLD ? Blood pressures are stable ? Can resume her home blood pressure medications ? Can resume cilostazol 5. Hypothyroidism ? Stable ? Continue with Synthroid 6. GERD ? Stable ? Continue with PPI DVT: Eliquis Charges/Coding Visit Charges Inpatient E&M: 49452 Subs Hosp L2
--- NOTE | 2022-06-06 11:10 | CASEMGMT ---
RN?CM?BREASTER?CM?to room to meet with patient for initial transition planning/care coordination?assessment.?RN?CM?introduced self and role at [facility].? Pt voices understanding and consents to?assessment?at this time.? Pt resting in bed in no distress at this time.? Pt is A/O at this time and answers all questions appropriately.?? Care providers, pharmacy, and demographics verified/updated at this time. PCP: Dr Parrish Specialists: Dr Newman-oncologist @ [facility]/[place], Broadcast Checker @ [facility]. Child And Adolescent Therapist--Pt does not remember physician's name. Preferred Pharmacy: [facility] [place], [place] Insurance: [employer] Prescription Benefit:?Yes Living Will/HPOA:? Pt does not currently have LW, but does have HCPOA, who is her daughter, Laurie. Pt states she has another daughter who lives in [place], but they are estranged. LNOK: Dtr/POA, Laurie Living Arrangements: Lives w/dtr/Laurie in mobile home w/ramp entrance. Indep w/ADL's and states she manages her own medications. She has an aide through [facility] that comes 2 x's/week for 4 hrs/day who assists w/home mgmt tasks. Her CM is Geri. She states her daughter does not work and would be able to stay w/her 15/09. Transportation:?Dtr/Laurie DME: States has the following DME:?shower chair, cane, walker, W/C, medical alert, nebulizer, pulse ox, and O2 through [facility]. Pt states she wears 2 l/m continuously. Call placed to Angel @ [facility], who states pt's current O2 orders are 2 l/m @ HS only. She states pt has a concentrator and a back-up O2 tank, but she does not have portable O2 tanks. ?Pt states no need for further DME at this time.? HHC/SNF: Hx of going to [facility]. She states she was getting HHC services through [facility], but was just discharged from [facility] last week. She states would like to have HHC again @ d/c and wants the same agency. She declines wanting list of other HHC options. Geri, [employer]PERVISOR CM, made aware. Pt did state, if SNF is needed @ d/c, that she would be agreeable, but her preference is home w/HHC. Pt wishes to return home and states has no concerns with going home at time of discharge.? CM?to follow for any increase in home oxygen needs and any further discharge planning/needs.? Pt voices no further concerns/needs at this time.? Advised pt to ask for?CM?if any further questions/concerns/needs arise.? Voices understanding. PLAN:??Home w/HHC and possible increase in O2 needs @ d/c. PT/OT evals pending. Stephani BSN?RN?CM
--- NOTE | 2022-06-06 11:53 | CASEMGMT ---
Addendum entered by Geri Montejo 06/06/22 13:19: [facility] is able to accept patient, green sheet placed on chart. RN CM updated patient regarding acceptance. Original Note: RN CM in to patient's room as daughter is at bedside. Patient had [facility] in the past and just discharged from services. Patient and daughter would like [facility] at discharge for nursing and PT/OT. RN JAZMIN sent referral to [facility] via [facility]. CM will continue to follow this patient and plan for a safe discharge.
--- NOTE | 2022-06-06 13:26 | WOUNDNOTE ---
wound photo: gaston
[2022-06-06] MEDS: traZODone 50 MG Tablet PO (22:22)
[2022-06-06] MEDS: Escitalopram Oxalate 20 MG Tablet PO (22:23)
[2022-06-06] MEDS: Montelukast 10 MG Tablet PO (22:24)
[2022-06-06] MEDS: Mirtazapine 30 MG Tablet PO (22:24)
[2022-06-06] MEDS: MELATONIN 3 MG TABLET PO (22:28)
[2022-06-07] VITALS (16 sets, daily range): BP systolic 96–124; BP diastolic 48–91; PULSE 66–75; RESP 16–19; TEMP 36.2–37; O2SAT 92–96; BMI 22.8
[2022-06-07] MEDS: HYDROcodone Bitartrate/Apap 5/325 Tablet PO ×4 (00:32→23:02)
[2022-06-07 06:20] LABS: Absolute Lymphocyte Count 1.44 X10^3/uL (0.83-4.51); Absolute Neutrophil Count 3.6 X10^3/uL (2.0-7.7); Basophil# 0.03 X10^3/uL; Basophil% 0.5 % (0-1); Eosinophil# 0.42 X10^3/uL; Hematocrit 25.2 % (37-47); Hemoglobin 7.6 g/dL (12.0-15.0); Lymphocyte # 1.44 X10^3/ul (0.83-4.51); Mean Corp Hgb Conc 30.2 g/dL (32-36); Mean Corpuscular Hgb 29.6 pg (27.0-32.0); Mean Corpuscular Volume 98.1 fL (81-99); Mean Platelet Vol. 9.3 fl (6.2-12.0); Monocyte# 0.45 X10^3/uL; Monocyte% 7.5 % (0-10); NRBC Flagged by Analyzer 0 % (0-5); Neutrophil # 3.62 X10^3/uL (2.7-7.7); Neutrophil % 60.5 % (47-70); POSITIVE MORPHOLOGY YES; Platelet Count 190 K/mm3 (150-450); RBC Distribution Width CV 22.5 % (11.6-14.6); RBC Distribution Width SD 79.2 fl (35.1-43.9); Red Blood Count 2.57 M/mm3 (4.2-5.4)
[2022-06-07 06:23] LABS: Differential Indicated SCAN CRITERIA MET
[2022-06-07] MEDS: Levothyroxine 100 MCG Tablet 200 MCG PO (06:38)
[2022-06-07] MEDS: Menthol/Lanolin/Calamine/Znox 113 GM Tube 1 APPLIC TOPICAL ×2 (06:38→13:35)
[2022-06-07 06:53] LABS: Anisocytosis 1+; Differential Comment SCANNED; Hypochromasia 2+; Macrocytosis RARE; Microcytosis RARE
[2022-06-07 07:02] LABS: Anion Gap 4 (5-15); BUN 10 mg/dL (7-18); BUN/Creat Ratio 21.1 RATIO (10-20); Calcium,Total 7.9 mg/dL (8.5-10.1); Chloride 103 mmol/L (98-107); Creatinine, Serum 0.48 mg/dL (0.55-1.02); EST Glomerular Filtration Rate 137 mL/min (>60); Est Glom Filt Rate - Afr Amer 165 mL/min (>60); Estimated Creatinine Clearance 40.22 ml/min; Glucose 93 mg/dL (74-106); Magnesium 1.2 mg/dL (1.6-2.6); Phosphorus 3.5 mg/dL (2.5-4.9); Potassium 2.6 mmol/L (3.5-5.1); Sodium Level 136 mmol/L (136-145)
[2022-06-07] MEDS: Ipratropium/Albuterol Sulfate 3 ML AMPUL.NEB INHALATION ×3 (07:49→20:18)
[2022-06-07] MEDS: Budesonide Respules 0.5 MG/2 ML AMPUL.NEB. INHALATION (07:50)
[2022-06-07] MEDS: Magnesium Sulfate 4gm/100mL 4 GM/100 ML IV.SOLN. IV (08:07)
[2022-06-07] MEDS: Potassium Chloride Oral Tablet 20 MEQ 60 MEQ PO (08:07)
[2022-06-07] MEDS: APIXABAN 5 MG TABLET PO ×2 (08:55→23:04)
[2022-06-07] MEDS: Cilostazol 50 MG Tablet 100 MG PO ×2 (08:55→23:04)
--- NOTE | 2022-06-07 11:19 | PCM.PN.HOSP ---
Subjective Subjective Tired today, she did not sleep very well overnight Objective Data Objective Data Vital Signs: Vital Signs Temp Pulse Resp BP Pulse Ox O2 Del Method O2 Flow Rate 98.6 F 66 18 97/49 L 96 Nasal Cannula 3 06/07/22 11:14 06/07/22 11:14 06/07/22 11:14 06/07/22 11:14 06/07/22 11:14 06/07/22 11:14 06/07/22 11:14 Oxygen Flow Rate (L/min) 3 Oxygen Delivery Method Nasal Cannula Weight: 125 lb 3.561 oz Body Mass Index (BMI) 22.8 Intake & Output: Intake and Output for Last 24 Hours 06/06/22 06/07/22 06/08/22 03:59 03:59 03:59 Intake Total 220 / 220 710 / 710 50 / 50 Output Total 400 / 400 825 / 825 Balance -180 / -180 -115 / -115 50 / 50 Medical Nutrition Assessment Dietitian: Malnutrition Criteria Met Start: 06/06/22 10:57 Freq: Status: Active Protocol: Document 06/06/22 10:57 LO (Rec: 06/06/22 10:57 [id number]) Nutrition Malnutrition Evidence of Malnutrition Exists Yes Malnutrition (severe): Chronic Evidenced By Suboptimal Energy Intake ( Severe),Weight Loss (Severe) Clinical Problem Chronic Disease or Condition Related Malnutrition Etiology severe related to 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 RD will order EPHP BID with breakfast and dinner with Aníbal mixed in to provide supplemental energy and promote wound healing. Lab / Micro Data Result Diagrams: 06/07/22 05:35 06/07/22 05:35 Labs: Laboratory Results - last 24 hr 06/07/22 05:35: WBC 6.0, RBC 2.57 L, Hgb 7.6 L, Hct 25.2 L, MCV 98.1, MCH 29.6, MCHC 30.2 L, RDW Std Deviation 79.2 H, RDW Coeff of Alberto 22.5 H, Plt Count 190, MPV 9.3, Immature Gran % (Auto) 0.500, Neut % (Auto) 60.5, Lymph % (Auto) 24.0, [place] % (Auto) 7.5, Eos % (Auto) 7.0 H, Baso % (Auto) 0.5, Absolute Neuts (auto) 3.6, Absolute Lymphs (auto) 1.44, Nucleated RBC % 0, Differential Comment SCANNED, Hypochromasia 2+, Anisocytosis 1+, Microcytosis RARE, Macrocytosis RARE 06/07/22 05:35: Sodium 136, Potassium 2.6 L*, Chloride 103, Carbon Dioxide 29.0, Anion Gap 4 L, BUN 10, Creatinine 0.48 L, Estim Creat Clear Calc 40.22, Est GFR (MDRD) Af Amer 165, Est GFR (MDRD) Non-Af 137, BUN/Creatinine Ratio 21.1 H, Glucose 93, Calcium 7.9 L, Phosphorus 3.5, Magnesium 1.2 L 06/07/22 09:00: Blood Type A POSITIVE, Antibody Screen NEGATIVE, Crossmatch See Detail Micro: Microbiology 06/05/22 13:38 Urine, Clean Catch Urine Culture - Final Mixed Gram Positive Organisms 06/05/22 13:45 Blood Culture (Wb) - Chest Blood Culture - Preliminary No growth in 48 hours. 06/05/22 13:00 Blood Culture (Wb) - Port Blood Culture - Preliminary No growth in 48 hours. Radiography Diagnostic Testing: Radiology Impression Echocardiogram 06/05/22 17:15 Interpretation Summary The estimated ejection fraction is 55-60 %. Pcemaker lead / or ICDnoted on [facility]side Pulmonary srtery sytolic [id number] No change from previous study Ordering Physician: Donna Andres Referring Physician: Luigi Parrish Performed By: Clark Westfall RCS Rhythm Strip Rhythm Strip: Paced Rate: 75 Ectopy: None Physical Exam Narrative General: Alert, Oriented x3, Cooperative, No apparent distress HEENT: Atraumatic, PERRLA, EOMI, Normocephalic Oral: Moist Mucosa Neck: Supple, No JVD Lungs: Diminished, Normal air movement, No rhonchi, but lateral wheeze, No rales Cardiovascular: Regular rate, Regular Rhythm, Normal S1, Normal S2, No murmurs Abdomen: Soft, Non Tender, Non-Distended, No Hepato-splenomegaly Extremities: Edema, Capillary Refill Less than 3 Seconds Skin: No rashes, No breakdown Musculoskeletal: No Tenderness to Palpation of Joints or Extremities Neurological: Motor Exam 5/5 strength throughout, Sensory exam intact to light touch and pain Psych/Mental Status: Normal Affect, Appropriate Assessment & Plan Assessment/Plan (1) Acute encephalopathy: PLAN: Plan 1. Acute encephalopathy likely secondary to UTI ? UA is consistent with a UTI ? Continue with antibiotics pending urine culture ? Mental status has improved and it does appear that the encephalopathy has resolved at this time ? Other causes for encephalopathy have been ruled out, she does have a history of metastatic lung cancer to her brain but this is been treated with gamma knife and she is currently on chemotherapy. Unfortunate she cannot have an MRI secondary to a pacemaker 2. 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 Non-small cell cancer ? On chemotherapy as an outpatient ? Likely due to marrow suppression from chemotherapy as well as her cancer, she does not get erythropoietin injections as an outpatient is stable ? Given her anemia today at 7.6 and her cardiac history we will transfuse 1 unit ? She does have some wheezing today on exam so we will initiate her on prednisone though she is still only requiring 3 L nasal cannula 3. Rheumatoid arthritis ? Stable ? Patient on Humira. Immunocompromise state as above. 4. Chronic diastolic CHF/peripheral vascular disease/HTN/HLD ? Blood pressures are stable ? Can resume her home blood pressure medications ? Can resume cilostazol ? Continue with Lasix 5. Hypothyroidism ? Stable ? Continue with Synthroid 6. GERD ? Stable ? Continue with PPI DVT: Eliquis Charges/Coding Visit Charges Inpatient E&M: 09779 Subs Hosp L2
[2022-06-07] MEDS: predniSONE 20 MG Tablet 40 MG PO (11:35)
[2022-06-07] MEDS: Ceftriaxone 1 GM/50 ML BAG IV (13:35)
[2022-06-07] MEDS: 0.9% Saline Lock 10 ML Syringe IV (17:14)
[2022-06-07] MEDS: Furosemide 20 MG/2 ML VIAL IV (17:15)
[2022-06-07] MEDS: Montelukast 10 MG Tablet PO (23:04)
[2022-06-07] MEDS: Mirtazapine 30 MG Tablet PO (23:04)
[2022-06-07] MEDS: traZODone 50 MG Tablet PO (23:04)
[2022-06-07] MEDS: Escitalopram Oxalate 20 MG Tablet PO (23:04)
[2022-06-08] VITALS (10 sets, daily range): BP systolic 106–121; BP diastolic 52–60; PULSE 62–95; RESP 16–24; TEMP 36.4–37; O2SAT 89–99; BMI 23.1
[2022-06-08] MEDS: Levothyroxine 100 MCG Tablet 200 MCG PO (06:48)
[2022-06-08] MEDS: Menthol/Lanolin/Calamine/Znox 113 GM Tube 1 APPLIC TOPICAL ×2 (06:48→15:05)
[2022-06-08 07:28] LABS: Absolute Lymphocyte Count 1.69 X10^3/uL (0.83-4.51); Absolute Neutrophil Count 3.6 X10^3/uL (2.0-7.7); Basophil# 0.03 X10^3/uL; Basophil% 0.5 % (0-1); Eosinophil# 0.07 X10^3/uL; Eosinophils% 1.2 % (0-5); Hematocrit 27.4 % (37-47); Hemoglobin 8.9 g/dL (12.0-15.0); Lymphocyte # 1.69 X10^3/ul (0.83-4.51); Lymphocyte % 29.2 % (19-41); Mean Corp Hgb Conc 32.5 g/dL (32-36); Mean Corpuscular Hgb 30.8 pg (27.0-32.0); Mean Corpuscular Volume 94.8 fL (81-99); Mean Platelet Vol. 9.2 fl (6.2-12.0); Monocyte% 6.9 % (0-10); NRBC Flagged by Analyzer 0 % (0-5); Neutrophil # 3.57 X10^3/uL (2.7-7.7); Neutrophil % 61.9 % (47-70); POSITIVE MORPHOLOGY YES; Platelet Count 202 K/mm3 (150-450); RBC Distribution Width CV 21.4 % (11.6-14.6); RBC Distribution Width SD 71.9 fl (35.1-43.9); Red Blood Count 2.89 M/mm3 (4.2-5.4); White Blood Count 5.8 K/mm3 (4.4-11.0)
[2022-06-08] MEDS: Ipratropium/Albuterol Sulfate 3 ML AMPUL.NEB INHALATION ×3 (07:28→19:41)
[2022-06-08 07:38] LABS: Differential Indicated SCAN CRITERIA MET
[2022-06-08] MEDS: HYDROcodone Bitartrate/Apap 5/325 Tablet PO ×3 (07:40→21:23)
[2022-06-08 07:42] LABS: Anion Gap 0 (5-15); BUN 10 mg/dL (7-18); BUN/Creat Ratio 22.7 RATIO (10-20); Calcium,Total 8.4 mg/dL (8.5-10.1); Chloride 105 mmol/L (98-107); Creatinine, Serum 0.44 mg/dL (0.55-1.02); EST Glomerular Filtration Rate 149 mL/min (>60); Est Glom Filt Rate - Afr Amer 180 mL/min (>60); Estimated Creatinine Clearance 40.22 ml/min; Glucose 76 mg/dL (74-106); Potassium 3.1 mmol/L (3.5-5.1); Sodium Level 137 mmol/L (136-145)
[2022-06-08 08:09] LABS: Anisocytosis 1+
[2022-06-08] MEDS: Ceftriaxone 1 GM/50 ML BAG IV (09:09)
[2022-06-08] MEDS: Furosemide 20 MG/2 ML VIAL IV ×2 (09:11→17:06)
--- NOTE | 2022-06-08 09:12 | PN.HOSP_ITS ---
Subjective Subjective Feels better than when she came in but she still tired and now she has a productive cough that leads to chest wall pain whenever she coughs mostly posterior lateral which is reproducible on exam Objective Data Objective Data Vital Signs: Vital Signs Temp Pulse Resp BP Pulse Ox O2 Del Method O2 Flow Rate 98.6 F 95 18 106/58 L 94 Nasal Cannula 3 06/08/22 09:07 06/08/22 09:07 06/08/22 09:07 06/08/22 09:07 06/08/22 09:07 06/08/22 09:07 06/08/22 09:07 FiO2 96 06/07/22 11:37 Oxygen Flow Rate (L/min) 3 Oxygen Delivery Method Nasal Cannula Weight: 126 lb 5.198 oz Body Mass Index (BMI) 23.1 Intake & Output: Intake and Output for Last 24 Hours 06/07/22 06/08/22 06/09/22 03:59 03:59 03:59 Intake Total 710 / 710 1520 / 1520 240 / 240 Output Total 825 / 825 Balance -115 / -115 1520 / 1520 240 / 240 Medical Nutrition Assessment Dietitian: Malnutrition Criteria Met Start: 06/06/22 10:57 Freq: Status: Active Protocol: Document 06/06/22 10:57 LO (Rec: 06/06/22 10:57 [id number]) Nutrition Malnutrition Evidence of Malnutrition Exists Yes Malnutrition (severe): Chronic Evidenced By Suboptimal Energy Intake ( Severe),Weight Loss (Severe) Clinical Problem Chronic Disease or Condition Related Malnutrition Etiology severe related to 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 RD will order EPHP BID with breakfast and dinner with Aníbal mixed in to provide supplemental energy and promote wound healing. Lab / Micro Data Result Diagrams: 06/08/22 06:30 06/08/22 06:30 Labs: Laboratory Results - last 24 hr 06/07/22 09:00: Blood Type A POSITIVE, Antibody Screen NEGATIVE, Crossmatch See Detail 06/08/22 06:30: WBC 5.8, RBC 2.89 L, Hgb 8.9 L, Hct 27.4 L, MCV 94.8, MCH 30.8, MCHC 32.5 D, RDW Std Deviation 71.9 H, RDW Coeff of Alberto 21.4 H, Plt Count 202, MPV 9.2, Immature Gran % (Auto) 0.300, Neut % (Auto) 61.9, Lymph % (Auto) 29.2, [place] % (Auto) 6.9, Eos % (Auto) 1.2, Baso % (Auto) 0.5, Absolute Neuts (auto) 3.6, Absolute Lymphs (auto) 1.69, Nucleated RBC % 0, Anisocytosis 1+ 06/08/22 06:30: Sodium 137, Potassium 3.1 L, Chloride 105, Carbon Dioxide 32.0, Anion Gap 0 L, BUN 10, Creatinine 0.44 L, Estim Creat Clear Calc 40.22, Est GFR (MDRD) Af Amer 180, Est GFR (MDRD) Non-Af 149, BUN/Creatinine Ratio 22.7 H, Glucose 76, Calcium 8.4 L, Magnesium 2.0 Micro: Microbiology 06/05/22 13:38 Urine, Clean Catch Urine Culture - Final Mixed Gram Positive Organisms 06/05/22 13:45 Blood Culture (Wb) - Chest Blood Culture - Preliminary No growth in 48 hours. 06/05/22 13:00 Blood Culture (Wb) - Port Blood Culture - Preliminary No growth in 48 hours. Rhythm Strip Rhythm Strip: Paced Rate: 75 Ectopy: None Physical Exam Narrative General: Alert, Oriented x3, Cooperative, No apparent distress HEENT: Atraumatic, PERRLA, EOMI, Normocephalic Oral: Moist Mucosa Neck: Supple, No JVD Lungs: Diminished, Normal air movement, No rhonchi,bilateral wheeze, No rales Cardiovascular: Regular rate, Regular Rhythm, Normal S1, Normal S2, No murmurs Abdomen: Soft, Non Tender, Non-Distended, No Hepato-splenomegaly Extremities: Edema, Capillary Refill Less than 3 Seconds Skin: No rashes, No breakdown Musculoskeletal: No Tenderness to Palpation of Joints or Extremities Neurological: Motor Exam 5/5 strength throughout, Sensory exam intact to light touch and pain Psych/Mental Status: Normal Affect, Appropriate Assessment & Plan Assessment/Plan (1) Acute encephalopathy: PLAN: Plan 1. Acute encephalopathy likely secondary to UTI ? UA is consistent with a UTI ?Urine culture shows mixed mukund ? Mental status has improved and it does appear that the encephalopathy has resolved at this time ? Other causes for encephalopathy have been ruled out, she does have a history of metastatic lung cancer to her brain but this is been treated with gamma knife and she is currently on chemotherapy. Unfortunate she cannot have an MRI secondary to a pacemaker 2. 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 Non-small cell cancer ? On chemotherapy as an outpatient ? Likely due to marrow suppression from chemotherapy as well as her cancer, she does not get erythropoietin injections as an outpatient is stable ?She was transfused 1 unit on 06/07/2022, hemoglobin today is 8.9 ?Based on her wheezing and sputum production will continue with p.o. prednisone but will also add azithromycin and obtain a sputum culture 3. Rheumatoid arthritis ? Stable ? Patient on Humira. Immunocompromise state as above. 4. Chronic diastolic CHF/peripheral vascular disease/HTN/HLD ? Blood pressures are stable ? Can resume her home blood pressure medications ? Can resume cilostazol ? Continue with Lasix 5. Hypothyroidism ? Stable ? Continue with Synthroid 6. GERD ? Stable ? Continue with PPI DVT: Eliquis Charges/Coding Visit Charges Inpatient E&M: 78849 Subs Hosp L2
[2022-06-08] MEDS: APIXABAN 5 MG TABLET PO ×2 (09:14→21:19)
[2022-06-08] MEDS: Metoprolol(XL)Succ 100 MG Tablet PO (09:14)
[2022-06-08] MEDS: Cilostazol 50 MG Tablet 100 MG PO ×2 (09:14→21:40)
[2022-06-08] MEDS: predniSONE 20 MG Tablet 40 MG PO (09:17)
[2022-06-08] MEDS: Potassium Chloride Oral Tablet 20 MEQ 60 MEQ PO (09:19)
[2022-06-08] MEDS: Azithromycin 250 MG Tablet 500 MG PO (09:27)
[2022-06-08] MEDS: Montelukast 10 MG Tablet PO (21:19)
[2022-06-08] MEDS: traZODone 50 MG Tablet PO (21:19)
[2022-06-08] MEDS: Escitalopram Oxalate 20 MG Tablet PO (21:19)
[2022-06-08] MEDS: Mirtazapine 30 MG Tablet PO (21:20)
[2022-06-09] VITALS (7 sets, daily range): BP systolic 115–120; BP diastolic 57–59; PULSE 60–65; RESP 15–18; TEMP 36.5–36.7; O2SAT 87–98; BMI 22.8
[2022-06-09] MEDS: Levothyroxine 100 MCG Tablet 200 MCG PO (05:27)
[2022-06-09 06:45] LABS: Absolute Lymphocyte Count 2.35 X10^3/uL (0.83-4.51); Absolute Neutrophil Count 3.6 X10^3/uL (2.0-7.7); Basophil# 0.03 X10^3/uL; Basophil% 0.5 % (0-1); Eosinophil# 0.05 X10^3/uL; Eosinophils% 0.8 % (0-5); Hematocrit 29.5 % (37-47); Hemoglobin 9.3 g/dL (12.0-15.0); Lymphocyte # 2.35 X10^3/ul (0.83-4.51); Lymphocyte % 36.2 % (19-41); Mean Corp Hgb Conc 31.5 g/dL (32-36); Mean Corpuscular Hgb 30.5 pg (27.0-32.0); Mean Corpuscular Volume 96.7 fL (81-99); Mean Platelet Vol. 8.9 fl (6.2-12.0); Monocyte# 0.44 X10^3/uL; Monocyte% 6.8 % (0-10); NRBC Flagged by Analyzer 0 % (0-5); Neutrophil % 55.4 % (47-70); POSITIVE MORPHOLOGY YES; Platelet Count 221 K/mm3 (150-450); RBC Distribution Width CV 21.6 % (11.6-14.6); RBC Distribution Width SD 75.2 fl (35.1-43.9); Red Blood Count 3.05 M/mm3 (4.2-5.4); White Blood Count 6.5 K/mm3 (4.4-11.0)
[2022-06-09 06:51] LABS: Differential Indicated SCAN CRITERIA MET
[2022-06-09 07:15] LABS: Anion Gap 4 (5-15); BUN 10 mg/dL (7-18); BUN/Creat Ratio 23.2 RATIO (10-20); Calcium,Total 8.7 mg/dL (8.5-10.1); Chloride 104 mmol/L (98-107); Creatinine, Serum 0.43 mg/dL (0.55-1.02); EST Glomerular Filtration Rate 153 mL/min (>60); Est Glom Filt Rate - Afr Amer 185 mL/min (>60); Estimated Creatinine Clearance 40.22 ml/min; Glucose 81 mg/dL (74-106); Potassium 3.8 mmol/L (3.5-5.1); Sodium Level 137 mmol/L (136-145)
[2022-06-09 07:18] LABS: Anisocytosis 2+
[2022-06-09] MEDS: Ipratropium/Albuterol Sulfate 3 ML AMPUL.NEB INHALATION (07:38)
[2022-06-09] MEDS: HYDROcodone Bitartrate/Apap 5/325 Tablet PO (07:43)
[2022-06-09] MEDS: Metoprolol(XL)Succ 100 MG Tablet PO (08:33)
[2022-06-09] MEDS: Cilostazol 50 MG Tablet 100 MG PO (08:34)
[2022-06-09] MEDS: predniSONE 20 MG Tablet 40 MG PO (08:34)
[2022-06-09] MEDS: Azithromycin 250 MG Tablet 500 MG PO (08:35)
[2022-06-09] MEDS: APIXABAN 5 MG TABLET PO (08:35)
[2022-06-09] MEDS: Furosemide 20 MG/2 ML VIAL IV (08:35)
--- NOTE | 2022-06-09 08:37 | PCM.PN.HOSP ---
Reason for Visit Reason for Visit: Diagnoses Encephalopathy, unspecified (06/05/22) Objective Data Objective Data Vital Signs: Vital Signs Temp Pulse Resp BP Pulse Ox O2 Del Method O2 Flow Rate 98.1 F 65 15 120/57 L 93 Nasal Cannula 3 06/09/22 08:25 06/09/22 08:25 06/09/22 08:25 06/09/22 08:25 06/09/22 08:25 06/09/22 08:25 06/09/22 08:25 FiO2 96 06/07/22 11:37 Oxygen Flow Rate (L/min) 3 Oxygen Delivery Method Nasal Cannula Weight: 125 lb 3.561 oz Body Mass Index (BMI) 22.8 Intake & Output: Intake and Output for Last 24 Hours 06/07/22 06/08/22 06/09/22 23:59 23:59 23:59 Intake Total 1450 / 1570 1210 / 1410 400 / 400 Balance 1450 / 1570 1210 / 1410 400 / 400 Medical Nutrition Assessment Dietitian: Malnutrition Criteria Met Start: 06/06/22 10:57 Freq: Status: Active Protocol: Document 06/06/22 10:57 LO (Rec: 06/06/22 10:57 [id number]) Nutrition Malnutrition Evidence of Malnutrition Exists Yes Malnutrition (severe): Chronic Evidenced By Suboptimal Energy Intake ( Severe),Weight Loss (Severe) Clinical Problem Chronic Disease or Condition Related Malnutrition Etiology severe related to 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 RD will order EPHP BID with breakfast and dinner with Aníbal mixed in to provide supplemental energy and promote wound healing. Lab / Micro Data Result Diagrams: 06/09/22 06:05 06/09/22 06:05 Labs: Laboratory Results - last 24 hr 06/09/22 06:05: WBC 6.5, RBC 3.05 L, Hgb 9.3 L, Hct 29.5 L, MCV 96.7, MCH 30.5, MCHC 31.5 L, RDW Std Deviation 75.2 H, RDW Coeff of Alberto 21.6 H, Plt Count 221, MPV 8.9, Immature Gran % (Auto) 0.300, Neut % (Auto) 55.4, Lymph % (Auto) 36.2, [place] % (Auto) 6.8, Eos % (Auto) 0.8, Baso % (Auto) 0.5, Absolute Neuts (auto) 3.6, Absolute Lymphs (auto) 2.35, Nucleated RBC % 0, Anisocytosis 2+ 06/09/22 06:05: Sodium 137, Potassium 3.8, Chloride 104, Carbon Dioxide 29.0, Anion Gap 4 L, BUN 10, Creatinine 0.43 L, Estim Creat Clear Calc 40.22, Est GFR (MDRD) Af Amer 185, Est GFR (MDRD) Non-Af 153, BUN/Creatinine Ratio 23.2 H, Glucose 81, Calcium 8.7 Micro: Microbiology 06/05/22 13:38 Urine, Clean Catch Urine Culture - Final Mixed Gram Positive Organisms 06/05/22 13:45 Blood Culture (Wb) - Chest Blood Culture - Preliminary No growth in 48 hours. 06/05/22 13:00 Blood Culture (Wb) - Port Blood Culture - Preliminary No growth in 48 hours. Rhythm Strip Rhythm Strip: Paced Rate: 75 Ectopy: None Assessment & Plan Assessment/Plan (1) Acute encephalopathy: PLAN: Plan 1. Acute encephalopathy likely secondary to UTI ? UA is consistent with a UTI ?Urine culture shows mixed mukund ? Mental status has improved and it does appear that the encephalopathy has resolved at this time ? Other causes for encephalopathy have been ruled out, she does have a history of metastatic lung cancer to her brain but this is been treated with gamma knife and she is currently on chemotherapy. Unfortunate she cannot have an MRI secondary to a pacemaker 2. 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 Non-small cell cancer ? On chemotherapy as an outpatient ? Likely due to marrow suppression from chemotherapy as well as her cancer, she does not get erythropoietin injections as an outpatient is stable ?She was transfused 1 unit on 06/07/2022, hemoglobin today is 8.9 Chest x-ray individually reviewed. AICD. No acute interval change. 01/26/2022. Has chronic changes of bronchovascular markings ?Based on her wheezing and sputum production will continue with p.o. prednisone but will also add azithromycin and obtain a sputum culture 3. Rheumatoid arthritis ? Stable ? Patient on Humira. Immunocompromise state as above. 4. Chronic diastolic CHF/peripheral vascular disease/HTN/HLD ? Blood pressures are stable ? Can resume her home blood pressure medications ? Can resume cilostazol ? Continue with Lasix 5. Hypothyroidism ? Stable ? Continue with Synthroid 6. GERD ? Stable ? Continue with PPI DVT: Neva Clinical Impression(s) from Imaging Studies Chest X-Ray 06/05/22 12:48 IMPRESSION: No interval change Brain CT 06/05/22 17:06 IMPRESSION: There are no acute findings. Chronic involutional changes of the brain. Echocardiogram 06/05/22 17:15 Interpretation Summary The estimated ejection fraction is 55-60 %. Pcemaker lead / or ICDnoted on R.side Pulmonary srtery sytolic [id number] mmhg No change from previous study
[2022-06-09] MEDS: Ceftriaxone 1 GM/50 ML BAG IV (08:38)
--- NOTE | 2022-06-09 09:05 | DCINST_ITS ---
Discharge Instructions Diet Discharge Diet: No restrictions Activity Discharge Activity: Return to Normal Activity and May Not Drive Weight Bearing Status: Weight bearing as tolerated Dressing / Incision Call your doctor if you observe: Fever of 101 or Higher, Coldness, Increased Pain, Numbness or Tingling, Change in Color, Inability to urinate, Inability to have a bowel movement, Using more than 1 pad per hour, Shortness of breath, Dizziness, Fainting spells, Swelling in the ankles, Chest pain, Prolonged hiccupping, Increased palpitations (irregular heartbeat) and Calf discomfort Follow Up Care When: IN 2 WEEKS Test Results: Test results from this visit will be discussed in further detail at your follow- up appointment, if applicable. Discharge Plan Admission Admit Date/Time: 06/05/22 17:07 Primary Reason for Your Visit: Chronic respiratory failure, COPD, heart failure Attending Provider: Juan Horvath Primary Care Provider: Luigi Parrish Consulting Providers: Donna Andres ; Frank Sweet Discharge Orders/Prescriptions Prescriptions: New levofloxacin 500 mg tablet 500 mg PO DAILY Qty: 2 0RF prednisone 10 mg tablet See Taper PO DAILY Qty: 30 0RF Taper: Prednisone Taper 40 mg WITH BREAKFAST for 3 Days and 0 Hour 30 mg WITH BREAKFAST for 3 Days and 0 Hour 20 mg WITH BREAKFAST for 3 Days and 0 Hour 10 mg WITH BREAKFAST for 3 Days and 0 Hour Continued levothyroxine 125 MCG tablet 200 mcg PO DAILY gabapentin 300 MG capsule 600 mg PO BID Label Comments: take 1 capsule by mouth three times a day omeprazole 20 MG capsule,delayed release(DR/EC) 20 mg PO DAILY Label Comments: albuterol sulfate 1 PUFF inhaler 2 puff INHALATION Q4H PRN PRN (Reason: Dyspnea/Wheezing/Sob) Qty: 1 0RF ipratropium-albuterol 3 ML solution for nebulization 3 ml INHALATION Q6H.RT PRN (Reason: Sob &/Or Wheezing) Qty: 30 0RF cilostazol 100 MG tablet 100 mg PO BID metoprolol succinate 200 MG tablet 100 mg PO DAILY albuterol sulfate [Ventolin HFA] 90 MCG HFA aerosol inhaler 2 puff inhalation Q4H PRN PRN (Reason: Sob &/Or Wheezing) montelukast 10 MG tablet 10 mg PO DAILY Rx Instructions: mirtazapine 15 MG tablet,disintegrating 30 mg PO QHS magnesium oxide 400 MG capsule 400 mg PO DAILY Escitalopram Oxalate 20 MG tablet 20 mg PO QHS Trelegy Ellipta 100-62.5-25 mcg Blister With Device 1 inh INHALATION DAILY oxycodone 10 mg tablet 10 mg PO Q8H PRN (Reason: pain) 4 Days Qty: 14 0RF trazodone 50 mg Tablet 50 mg PO QHS Eliquis 5 MG tablet 5 mg PO BID Qty: 74 0RF Changed furosemide 40 MG tablet 40 mg PO BID 30 Days Qty: 60 2RF Rx Instructions: Hold for SBP less than 100 mmHg Held hydroxychloroquine 200 MG tablet 200 mg PO BID Hold Instructions: Hold for 2 days while patient is taking levofloxacin antibiotic. Referrals / Follow Up: John Bearden DO [Med Staff - Active Staff] - Within 2 Weeks Luigi Parrish DO [Primary Care Provider] - Aaron Ruano MD [Med Staff - Active Staff] - Disposition Disposition (needs filled in before D/C Order can be placed): Home Health Service
--- NOTE | 2022-06-09 09:17 | DS.PCM_ITS ---
Providers Date of Admission: 06/05/22 Date of Discharge: 06/09/22 Primary Care Physician: Dr. 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 0.3x0.3x1.6 Reason For Visit: UTI, GEN WEAK, ELEVATED TPN Diagnosis Discharge Diagnosis (1) Acute encephalopathy: Status: Acute Code(s): G93.40 - Encephalopathy, unspecified Plan This is 71-year-old female with history of stage IV NSCLC was admitted with acute change in mental status, progressive fatigue over the last several days. No fever. Patient was stupor. 1.? Acute encephalopathy likely secondary to UTI ? UA UA positive for WBC 25-50 cells, LE 500, nitrite negative bacteria 3+. ?Urine culture shows mixed mukund suggestive of contamination ? Mental status has improved and resolved. Patient on baseline. ? Other causes for encephalopathy have been ruled out, she does have a history of metastatic lung cancer to her brain but this is been treated with gamma knife and she is currently on chemotherapy CT brain does not show acute change..? Unfortunate she cannot have an MRI secondary to a pacemaker Patient was empirically started on IV ceftriaxone for suspicion of UTI but later azithromycin was added for suspicion of acute bronchitis with COPD history. Infection work-up was negative. Empirically discharged on 2 more days of Levaquin to complete total of 5 days. Follow-up pulmonary 2.? Stage IV lung cancer/NSCLC with metastatic lesions to the brain/anemia of chronic disease/COPD ? On chemotherapy, Gemzar as an outpatient. Patient had gamma knife surgery for brain metastasis. ? Likely due to marrow suppression from chemotherapy as well as her cancer, she does not get erythropoietin injections as an outpatient is stable ?She was transfused 1 unit on 06/07/2022, hemoglobin today is 8.9 Chest x-ray individually reviewed.? AICD.? No acute interval change.? 01/26/2022.? Has chronic changes of bronchovascular markings ?Blood cultures x2 negative for more than 48 hours Follow-up in pulmonary clinic with Dr. Bearden. 3.? Rheumatoid arthritis ? Stable ? Patient on Humira.? Immunocompromise state as above. Hold hydroxychloroquine for 2 days for completion of Levaquin. 4.? Chronic diastolic CHF/peripheral vascular disease/HTN/HLD ? Blood pressures are stable ? Can resume her home blood pressure medications ? Can resume cilostazol ? Continue with Lasix 5.? Hypothyroidism ? Stable ? Continue with Synthroid 6.? GERD ? Stable ? Continue with PPI DVT: Eliquis Discharge medication reconciliation done. Discharge follow-up instructions completed. Discharge process discussed with the patient and all questions were answered to patient's satisfaction. Total time spent, exact 35 minutes on discharge meds reconciliation, examination, coordination of care with nurses and ancillary staff, review of imaging and blood test and discussion with the patient on follow-up instructions. Clinical Impression(s) from Imaging Studies Chest X-Ray? 06/05/22 12:48 IMPRESSION: No interval change ? Brain CT? 06/05/22 17:06 IMPRESSION: There are no acute findings. Chronic involutional changes of the brain. ? Echocardiogram? 06/05/22 17:15 Interpretation Summary The estimated ejection fraction is 55-60 %. Pcemaker lead / or ICDnoted on R.side Pulmonary srtery sytolic [id number] mmhg No change from previous study ? ? Clinical Impression(s) from Imaging Studies Chest X-Ray 06/05/22 12:48 IMPRESSION: No interval change Brain CT 06/05/22 17:06 IMPRESSION: There are no acute findings. Chronic involutional changes of the brain. Echocardiogram 06/05/22 17:15 Interpretation Summary The estimated ejection fraction is 55-60 %. Pcemaker lead / or ICDnoted on R[facility]side Pulmonary srtery sytolic [id number] mmhg No change from previous study Medications at Discharge Home Medications gabapentin 300 mg capsule 600 mg PO BID nerve pain 12/23/15 levothyroxine 125 mcg tablet 200 mcg PO DAILY thyroid 12/23/15 omeprazole 20 mg capsule,delayed release 20 mg PO DAILY reflux 12/23/15 hydroxychloroquine 200 mg tablet 200 mg PO BID inflammation 10/16/16 albuterol sulfate 90 mcg/actuation aerosol inhaler 2 puff inhalation Q4H PRN PRN Dyspnea/Wheezing/Sob ##1 11/16/17 ipratropium 0.5 mg-albuterol 3 mg (2.5 mg base)/3 mL nebulization soln 3 ml inhalation Q6H.RT PRN Sob &/Or Wheezing ##30 11/16/17 albuterol sulfate 90 mcg/actuation aerosol inhaler (Ventolin HFA) 2 puff inhalation Q4H PRN PRN Sob &/Or Wheezing 02/25/18 cilostazol 100 mg tablet 100 mg PO BID peripheral vascular disease 02/25/18 metoprolol succinate 200 mg tablet,extended release 24 hr 100 mg PO DAILY blood pressure 02/25/18 Escitalopram Oxalate 20 mg PO QHS depression 12/06/19 magnesium oxide 400 mg PO DAILY supplement 12/06/19 mirtazapine 15 mg disintegrating tablet 30 mg PO QHS mental health 12/06/19 montelukast 10 mg tablet 10 mg PO DAILY allergies 12/06/19 fluticasone fur. 100 mcg-umeclid 62.5 mcg-vilant 25 mcg inhalat.powder (Trelegy Ellipta) 1 inh inhalation DAILY sob 09/01/20 oxycodone 10 mg tablet 10 mg PO Q8H PRN pain 4 days #14 tabs 01/27/22 trazodone 50 mg tablet 50 mg PO QHS Check with primary doctor 06/05/22 apixaban 5 mg tablet (Eliquis) 5 mg PO BID #74 tabs 06/09/22 furosemide 40 mg tablet 40 mg PO BID diuretic 30 days #60 tabs 06/09/22 levofloxacin 500 mg tablet 500 mg PO DAILY #2 tabs 06/09/22 prednisone 10 mg tablet See Taper PO DAILY #30 tabs 06/09/22 Physical Exam Narrative Patient seen and examined on the day of discharge. Has chronic shortness of breath, baseline 3 L of home oxygen. History of COPD and small cell lung cancer. Follows Dr. Bearden. Has chronic cough but better. She states mild bilateral on lateral aspect pleuritic chest pain on coughing. Physical exam General: Alert, Oriented x3, Cooperative HEENT: Atraumatic, PERRLA, EOMI, Normocephalic Oral: Oral mucosa moist. No Gingival or Mucosal Lesions/ Ulcerations Neck: Supple, No JVD, Negative Carotid Bruits Lungs: Air entry diminished in bilateral lung bases. Bilateral chronic rhonchi Cardiovascular: Regular rate, Regular Rhythm, Normal S1, Normal S2, No murmurs Abdomen: Bowel Sounds Present, Soft, Non Tender, Non-Distended : No renal angle tenderness. No suprapubic tenderness. Extremities: No edema, Capillary Refill Less than 3 Seconds Skin: No rashes, No breakdown Musculoskeletal: No Tenderness to Palpation of Joints or Extremities. Muscle strength 4/5 at knees and hip joints. Neurological: Cranial nerves II-XII grossly intact, DTR 2+/4 and Symmetrical, Neuro grossly intact Psych/Mental Status: Normal Affect, Appropriate. 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 RD will order EPHP BID with breakfast and dinner with Aníbal mixed in to provide supplemental energy and promote wound healing. Weight / BMI Weight Weight: 125 lb 3.561 oz Body Mass Index (BMI) 22.8 ABG / Lab / Microbiology Data Result Diagrams: 06/09/22 06:05 06/09/22 06:05 Laboratory: Laboratory Results - last 24 hr 06/09/22 06:05: WBC 6.5, RBC 3.05 L, Hgb 9.3 L, Hct 29.5 L, MCV 96.7, MCH 30.5, MCHC 31.5 L, RDW Std Deviation 75.2 H, RDW Coeff of Alberto 21.6 H, Plt Count 221, MPV 8.9, Immature Gran % (Auto) 0.300, Neut % (Auto) 55.4, Lymph % (Auto) 36.2, [place] % (Auto) 6.8, Eos % (Auto) 0.8, Baso % (Auto) 0.5, Absolute Neuts (auto) 3.6, Absolute Lymphs (auto) 2.35, Nucleated RBC % 0, Anisocytosis 2+ 06/09/22 06:05: Sodium 137, Potassium 3.8, Chloride 104, Carbon Dioxide 29.0, Anion Gap 4 L, BUN 10, Creatinine 0.43 L, Estim Creat Clear Calc 40.22, Est GFR (MDRD) Af Amer 185, Est GFR (MDRD) Non-Af 153, BUN/Creatinine Ratio 23.2 H, Glucose 81, Calcium 8.7 Microbiology: Microbiology 06/05/22 13:38 Urine, Clean Catch Urine Culture - Final Mixed Gram Positive Organisms 06/05/22 13:45 Blood Culture (Wb) - Chest Blood Culture - Preliminary No growth in 48 hours. 06/05/22 13:00 Blood Culture (Wb) - Port Blood Culture - Preliminary No growth in 48 hours. D/C Instructions Discharge Diet: No restrictions Weight Bearing Status: Weight bearing as tolerated Call your doctor if you observe: Fever of 101 or Higher, Coldness, Increased Pain, Numbness or Tingling, Change in Color, Inability to urinate, Inability to have a bowel movement, Using more than 1 pad per hour, Shortness of breath, Dizziness, Fainting spells, Swelling in the ankles, Chest pain, Prolonged hiccupping, Increased palpitations (irregular heartbeat) and Calf discomfort When: IN 2 WEEKS Meaningful Use Info Meaningful Use Diagnoses (Choose all that apply): None applicable Discharge Plan Admission Admit Date/Time: 06/05/22 17:07 Primary Reason for Your Visit: Chronic respiratory failure, COPD, heart failure Attending Provider: Juan Horvath Primary Care Provider: Luigi Parrish Consulting Providers: Donna Anrdes ; Frank Sweet Discharge Orders/Prescriptions Prescriptions: New levofloxacin 500 mg tablet 500 mg PO DAILY Qty: 2 0RF prednisone 10 mg tablet See Taper PO DAILY Qty: 30 0RF Taper: Prednisone Taper 40 mg WITH BREAKFAST for 3 Days and 0 Hour 30 mg WITH BREAKFAST for 3 Days and 0 Hour 20 mg WITH BREAKFAST for 3 Days and 0 Hour 10 mg WITH BREAKFAST for 3 Days and 0 Hour Continued levothyroxine 125 MCG tablet 200 mcg PO DAILY gabapentin 300 MG capsule 600 mg PO BID Label Comments: take 1 capsule by mouth three times a day omeprazole 20 MG capsule,delayed release(DR/EC) 20 mg PO DAILY Label Comments: albuterol sulfate 1 PUFF inhaler 2 puff INHALATION Q4H PRN PRN (Reason: Dyspnea/Wheezing/Sob) Qty: 1 0RF ipratropium-albuterol 3 ML solution for nebulization 3 ml INHALATION Q6H.RT PRN (Reason: Sob &/Or Wheezing) Qty: 30 0RF cilostazol 100 MG tablet 100 mg PO BID metoprolol succinate 200 MG tablet 100 mg PO DAILY albuterol sulfate [Ventolin HFA] 90 MCG HFA aerosol inhaler 2 puff inhalation Q4H PRN PRN (Reason: Sob &/Or Wheezing) montelukast 10 MG tablet 10 mg PO DAILY Rx Instructions: mirtazapine 15 MG tablet,disintegrating 30 mg PO QHS magnesium oxide 400 MG capsule 400 mg PO DAILY Escitalopram Oxalate 20 MG tablet 20 mg PO QHS Trelegy Ellipta 100-62.5-25 mcg Blister With Device 1 inh INHALATION DAILY oxycodone 10 mg tablet 10 mg PO Q8H PRN (Reason: pain) 4 Days Qty: 14 0RF trazodone 50 mg Tablet 50 mg PO QHS Eliquis 5 MG tablet 5 mg PO BID Qty: 74 0RF Changed furosemide 40 MG tablet 40 mg PO BID 30 Days Qty: 60 2RF Rx Instructions: Hold for SBP less than 100 mmHg Held hydroxychloroquine 200 MG tablet 200 mg PO BID Hold Instructions: Hold for 2 days while patient is taking levofloxacin antibiotic. Referrals / Follow Up: John Bearden DO [Med Staff - Active Staff] - Within 2 Weeks Luigi Parrish DO [Primary Care Provider] - Aaron Ruano MD [Med Staff - Active Staff] - Disposition Disposition (needs filled in before D/C Order can be placed): Home Health Service Charges/Coding Visit Charges Inpatient E&M: 56361 Disch Hosp >30min
--- NOTE | 2022-06-09 10:33 | PHA.DC.MC ---
Pharmacy Service has performed discharge medication reconciliation and counseling for this patient. The patient was counseled on the following discharge medications and changes in medications for homegoing were reviewed. 1. LEVAQUIN 2. PREDNISONE The Reason for Use, instructions for use, and potential side effects were reviewed for all new medications. The patient's questions regarding all of their medications were answered. The patient/ daughter were able to verbally demonstrate an understanding of the discharge medications. Home Medications gabapentin 300 mg capsule 600 mg PO BID nerve pain 12/23/15 levothyroxine 125 mcg tablet 200 mcg PO DAILY thyroid 12/23/15 omeprazole 20 mg capsule,delayed release 20 mg PO DAILY reflux 12/23/15 hydroxychloroquine 200 mg tablet 200 mg PO BID inflammation 10/16/16 albuterol sulfate 90 mcg/actuation aerosol inhaler 2 puff inhalation Q4H PRN PRN Dyspnea/Wheezing/Sob ##1 11/16/17 ipratropium 0.5 mg-albuterol 3 mg (2.5 mg base)/3 mL nebulization soln 3 ml inhalation Q6H.RT PRN Sob &/Or Wheezing ##30 11/16/17 albuterol sulfate 90 mcg/actuation aerosol inhaler (Ventolin HFA) 2 puff inhalation Q4H PRN PRN Sob &/Or Wheezing 02/25/18 cilostazol 100 mg tablet 100 mg PO BID peripheral vascular disease 02/25/18 metoprolol succinate 200 mg tablet,extended release 24 hr 100 mg PO DAILY blood pressure 02/25/18 Escitalopram Oxalate 20 mg PO QHS depression 12/06/19 magnesium oxide 400 mg PO DAILY supplement 12/06/19 mirtazapine 15 mg disintegrating tablet 30 mg PO QHS mental health 12/06/19 montelukast 10 mg tablet 10 mg PO DAILY allergies 12/06/19 fluticasone fur. 100 mcg-umeclid 62.5 mcg-vilant 25 mcg inhalat.powder (Trelegy Ellipta) 1 inh inhalation DAILY sob 09/01/20 oxycodone 10 mg tablet 10 mg PO Q8H PRN pain 4 days #14 tabs 01/27/22 trazodone 50 mg tablet 50 mg PO QHS Check with primary doctor 06/05/22 apixaban 5 mg tablet (Eliquis) 5 mg PO BID #74 tabs 06/09/22 furosemide 40 mg tablet 40 mg PO BID diuretic 30 days #60 tabs 06/09/22 levofloxacin 500 mg tablet 500 mg PO DAILY #2 tabs 06/09/22 prednisone 10 mg tablet See Taper PO DAILY #30 tabs 06/09/22 The patient's discharge medication list was reviewed for discrepancies and discrepancies were resolved.
[2022-06-09] MEDS: 0.9% Saline Lock 10 ML Syringe IV (11:09)
--- NOTE | 2022-06-09 11:18 | CASEMGMT ---
DANAE WU updated that patient will need updated oxygen order for 2lpm with exertions. Script received and sent to [facility] via [employer]. DANAE WU sent updated clinicals to [facility] and notified of discharge. DANAE WU to room. Rosanna states she has inogen for at discharge. Patient aware that C will be in contact with patient. Patient had no further questions or concerns at this time.
--- NOTE | 2022-06-13 09:17 | NURSING ---
DANAE CM Discharge follow-up phone call. Ariella: 13 Strata: 3 Date of Call: 06/13/22 Time of Call: 914 Admitting Dx.: UTI, Generalized weakness, Elevated TPN Summary of call: Spoke with Pt. and her daughter. Confirmed that home health has been scheduled, that the Pt has started prescribed medication. Pt. and daughter denied any concerns of questions regarding recent care. Pt instructed to concact her PCP of any questions or concerns regarding care.
== END 2022-06-09 11:27 | disposition home health service (06) | DRG 690 ==
LOC: ED 16:05 → PCU 17:56
PROVIDERS: Family Medicine; Admitting Provider Internal Medicine; Emergency Provider Emergency Medicine; PCP Student in an Organized Health Care Education/Training Program; Visit Provider Internal Medicine
DX: N39.0 Urinary tract infection, site not specified (principal); G93.49 Other encephalopathy; C79.31 Secondary malignant neoplasm of brain; C34.90 Malignant neoplasm of unspecified part of unspecified bronchus or lung; I50.32 Chronic diastolic (congestive) heart failure; I11.0 Hypertensive heart disease with heart failure; D63.0 Anemia in neoplastic disease; E03.9 Hypothyroidism, unspecified; J44.9 Chronic obstructive pulmonary disease, unspecified; M06.9 Rheumatoid arthritis, unspecified; K21.9 Gastro-esophageal reflux disease without esophagitis; E78.5 Hyperlipidemia, unspecified; J20.9 Acute bronchitis, unspecified; Z68.22 Body mass index [BMI] 22.0-22.9, adult; Z95.810 Presence of automatic (implantable) cardiac defibrillator; Z99.81 Dependence on supplemental oxygen; Z79.02 Long term (current) use of antithrombotics/antiplatelets; Z92.21 Personal history of antineoplastic chemotherapy; Z79.899 Other long term (current) drug therapy; Z87.891 Personal history of nicotine dependence
CPT/HCPCS: 36415; 36591; 70470; 71046; 80048; 80053; 81001; 82140; 83605; 83735; 83880; 84100; 84484; 85025; 85610; 85730; 86850; 86900; 86901; 86920; 86922; 87040; 87070; 87086; 87088; 87205; 93005; 93306; 94640; 94668; 97110; 97162; 97166; 97530; 97535; 99285; J7040; P9016; A4216; J1940